=== PATIENT | female | born 1935 | race Caucasian/White ===

== ENCOUNTER 2016-09-09 18:15 | Inpatient (IN) | payer BC, MEDICARE ==
[~2016-09-09] VITALS: Ht 157.5 cm; Wt 72.1 kg
[2016-09-09] MEDS ORDERED: CELEXA20 MG ORAL (18:28)
[2016-09-09] MEDS ORDERED: VITAMIN D-40400 UNIT ORAL (18:28)
[2016-09-09] MEDS ORDERED: COMBIVENT RESPIM4 GM IH (18:28)
[2016-09-09] MEDS ORDERED: SEROQUEL25 MG ORAL (18:28)
[2016-09-09] MEDS ORDERED: MULTIVITAMINS1 EAC2 ORAL (18:28)
[2016-09-09] MEDS ORDERED: ARICEPT10 MG ORAL (18:28)
[2016-09-09] MEDS ORDERED: OMEPRAZOLE20 M2 ORAL (18:28)
[2016-09-09] MEDS ORDERED: MIRALAX17 G2 ORAL (18:28)
[2016-09-09] MEDS ORDERED: SYNTHROID50 MCG ORAL (18:28)
[2016-09-09] MEDS ORDERED: REFRESH TEARS15 ML OP (18:28)
[2016-09-09] MEDS ORDERED: FUROSEMIDE20 M1 ORAL (18:28)
[2016-09-09] MEDS ORDERED: CRANBERRY400 MG PO (18:28)
[2016-09-09] MEDS ORDERED: ADVAIR 250-501 EACH INH (18:28)
[2016-09-09] MEDS ORDERED: DOCUSATE SODIU100 MG ORAL (18:28)
[2016-09-09] MEDS ORDERED: Piperacillin/Tazobactam 4.5 GM in NS 110 ML IV ONE (18:30)
[2016-09-09] MEDS ORDERED: Azithromycin 500 MG in NS 275 ML IV ONE (18:30)
[2016-09-09] MEDS ORDERED: Vancomycin 1 GM in NS 275 ML IV ONE (18:30)
[2016-09-09] MEDS ORDERED: Azithromycin Inj IV ONE (18:55)
--- NOTE | 2016-09-09 19:08 | Emergency Room Report ---
History of Present Illness General Chief Complaint: Dyspnea/Respdistress Source: EMS Present Illness HPI Patient presents with respiratory distress. Apparently she had episodes of vomiting the last few days. She comes in with wheezes according to the paramedics also there were rhonchi. The patient has dementia and is in assisted living. She's has a DO NOT RESUSCITATE order and wants comfort measures only. Paramedics treated with albuterol the field and the patient is somewhat better. Patient is unable to give a coherent history at this time. Allergies: Coded Allergies: NO KNOWN ALLERGIES (Unverified Allergy, Unknown, 09/09/16) Patient History Past Medical History: see triage record Social History Narrative assisted living Reviewed Nursing Documentation: PMH: Agreed, PSxH: Agreed Nursing Documentation-PMH Hx Cardiac Problems: No Hx Hypertension: No Hx Pacemaker: No Hx Asthma: Yes Hx COPD: Yes Hx Diabetes: No Hx Cancer: No Hx Gastrointestinal Problems: No Hx Dialysis: No Hx Neurological Problems: Yes - hypothyroid, djd Hx Cerebrovascular Accident: No Hx Seizures: No Review of Systems All Other Systems: limited Physical Exam Vital Signs Date Time Temp Pulse Resp B/P Pulse Ox O2 Delivery O2 Flow Rate FiO2 09/09/16 18:13 98.2 86 20 110/78 98 Non-Rebreather 10.0 Sp02 EP Interpretation: reviewed, normal General Appearance: well appearing, no apparent distress, alert Head: normocephalic Eyes: bilateral eye normal inspection ENT: moist mucus membranes Neck: supple Respiratory: no respiratory distress, crackles, rales Cardiovascular #1: regular rate, rhythm Cardiovascular #2: 2+ radial (R) Gastrointestinal: soft, no mass Musculoskeletal: back normal, gait/station normal, normal range of motion Neurologic: alert, DTRs symmetric, motor weakness - LE but moves all 4, oriented - X1 Psychiatric: mood/affect normal Skin: normal inspection, warm/dry Medical Decision Making Diagnostic Impression: Primary Impression: Pneumonia Qualified Codes: J18.1 - Lobar pneumonia, unspecified organism Additional Impressions: UTI (urinary tract infection) Qualified Codes: N30.00 - Acute cystitis without hematuria Dementia Qualified Codes: F03.90 - Unspecified dementia without behavioral disturbance Suspected aspiration ER Course Patient presents with respiratory difficulty after having episodes of vomiting. Differential includes bronchospasm, aspiration, pneumonia, gastroenteritis, acute myocardial infarction amongst others. The patient needs evaluation with EKG, blood cultures, lactate, and EKG and chest x-ray after the patient will have antibiotics begun. Because of the rales an x-ray will be obtained judicious fluids will be given to the patient. CXR with RLL infiltrate. Lactic acid slightly elevated. Pyuria suggests concomitant UTI. Tylenol given for temp. Improved with treatment, NAD. Admit med Dr. Hickman. Laboratory Tests Test 09/09/16 18:50 09/09/16 19:20 09/09/16 19:45 White Blood Count 10.5 K/UL (4.8-10.8) Red Blood Count 4.05 M/UL (4.20-5.40) L Hemoglobin 14.3 G/DL (12.0-16.0) Hematocrit 40.8 % (37.0-47.0) Mean Corpuscular Volume 101 FL (80-99) H Mean Corpuscular Hemoglobin 35.3 PG (27.0-31.0) H Mean Corpuscular Hemoglobin Concent 35.1 G/DL (32.0-36.0) Red Cell Distribution Width 12.0 % (11.6-14.8) Platelet Count 160 K/UL (150-450) Mean Platelet Volume 6.8 FL (6.5-10.1) Neutrophils (%) (Auto) 82.8 % (45.0-75.0) H Lymphocytes (%) (Auto) 10.9 % (20.0-45.0) L Monocytes (%) (Auto) 5.6 % (1.0-10.0) Eosinophils (%) (Auto) 0.0 % (0.0-3.0) Basophils (%) (Auto) 0.6 % (0.0-2.0) Sodium Level 141 mEQ/L (135-145) Potassium Level 3.6 mEQ/L (3.4-4.9) Chloride Level 97 mEQ/L (98-107) L Carbon Dioxide Level 26 mEQ/L (20-30) Anion Gap 18 (5-15) H Blood Urea Nitrogen 18 mg/dL (7-23) Creatinine 0.8 mg/dL (0.5-0.9) Estimate Glomerular Filtration Rate mL/min (>60) Glucose Level 158 mg/dL (74-106) H Lactic Acid Level 2.70 mmol/L (0.66-2.22) H Calcium Level 9.6 mg/dL (8.6-10.2) Total Bilirubin 0.4 mg/dL (0.0-1.2) Aspartate Amino Transferase (AST) 23 U/L (5-40) Alanine Aminotransferase (ALT) 14 U/L (3-33) Alkaline Phosphatase 79 U/L (35-104) Total Creatine Kinase 166 U/L (26-140) H Troponin I < 0.30 ng/mL (<=0.30) Pro-B-Type Natriuretic Peptide 451 pg/mL (0-450) H Total Protein 7.2 g/dL (6.6-8.7) Albumin 4.0 g/dL (3.5-5.2) Globulin 3.2 g/dL Albumin/Globulin Ratio 1.2 (1.0-2.7) Prothrombin Time 9.9 SEC (9.30-11.50) Prothrombin Time INR 1.0 (0.9-1.1) PTT 22 SEC (23-33) L Urine Color Yellow Urine Appearance Clear Urine pH 5 (4.5-8.0) Urine Specific [place] 1.025 (1.005-1.035) Urine Protein 2+ (NEGATIVE) H Urine Glucose (UA) Negative (NEGATIVE) Urine Ketones 3+ (NEGATIVE) H Urine Occult Blood 1+ (NEGATIVE) H Urine Nitrite Negative (NEGATIVE) Urine Bilirubin Negative (NEGATIVE) Urine Urobilinogen 1 MG/DL (0.0-1.0) H Urine Leukocyte Esterase 1+ (NEGATIVE) H Urine RBC 5-10 /HPF (0 - 2) H Urine WBC 20-30 /HPF (0 - 2) H Urine Squamous Epithelial Cells Few /LPF (NONE/OCC) Urine Amorphous Sediment Few /LPF (NONE) H Urine Bacteria Many /HPF (NONE) H EKG Diagnostic Results Rate: normal Rhythm: NSR ST Segments: no acute changes Rhythm Strip Diag. Results EP Interpretation: yes Rhythm: NSR, no PVC's, no ectopy Chest X-Ray Diagnostic Results EP Interpretation: Yes Findings: no effusion, no pneumothorax, other - RLL infiltrate Number of Views: 1 Last Vital Signs Date Time Temp Pulse Resp B/P Pulse Ox O2 Delivery O2 Flow Rate FiO2 09/09/16 20:02 100.9 87 18 118/97 96 Nasal Cannula 4.0 09/09/16 19:13 93 Status: improved Disposition: ADMITTED INPATIENT Condition: Serious Ron Metzger M.D. September 09, 2016 19:08
[2016-09-09 19:13] VITALS: BP 115/78
[2016-09-09 19:21] LABS: BASOPHILS % (AUTO) 0.6 % (0.0-2.0); LYMPHOCYTES % (AUTO) 10.9 % (20.0-45.0); MEAN CORPUSCULAR HEMOGLOBIN 35.3 PG (27.0-31.0); MEAN CORPUSCULAR HGB CONC 35.1 G/DL (32.0-36.0); MEAN CORPUSCULAR VOLUME 101 FL (80-99); MEAN PLATELET VOLUME 6.8 FL (6.5-10.1); MONOCYTES % (AUTO) 5.6 % (1.0-10.0); NEUTROPHILS % (AUTO) 82.8 % (45.0-75.0); PLATELET COUNT 160 K/UL (150-450); RED BLOOD COUNT 4.05 M/UL (4.20-5.40); WHITE BLOOD COUNT 10.5 K/UL (4.8-10.8)
[2016-09-09 19:40] LABS: TROPONIN I < 0.30 ng/mL (<=0.30)
[2016-09-09 19:40] LABS: PROTHROMBIN TIME 9.9 SEC (9.30-11.50)
[2016-09-09 19:41] LABS: REFLEX LACTIC ACID YES OR NO YES
[2016-09-09 19:46] LABS: ALANINE AMINOTRANSFERASE 14 U/L (3-33); ALBUMIN/GLOBULIN RATIO 1.2 (1.0-2.7); ANION GAP 18 (5-15); ASPARTATE AMINO TRANSFERASE 23 U/L (5-40); CALCIUM 9.6 mg/dL (8.6-10.2); CARBON DIOXIDE 26 mEQ/L (20-30); CHLORIDE 97 mEQ/L (98-107); CREATININE 0.8 mg/dL (0.5-0.9); HEMOLYSIS 13; POTASSIUM 3.6 mEQ/L (3.4-4.9); SODIUM 141 mEQ/L (135-145); TOTAL PROTEIN 7.2 g/dL (6.6-8.7)
[2016-09-09] MEDS ORDERED: Tubing IV Cassette IV ONE ×2 (19:51→21:52)
[2016-09-09] MEDS ORDERED: Zosyn 4.5gm inj ONE (19:51)
[2016-09-09] MEDS ORDERED: NS 110 ML ONE (19:51)
[2016-09-09 20:02] VITALS: BP 118/97
[2016-09-09 20:16] LABS: APPEARANCE,URINE CLEAR; KETONES,URINE 3+ (NEGATIVE); LEUKOCYTE ESTERASE ,URINE 1+ (NEGATIVE); NITRITE,URINE NEGATIVE (NEGATIVE); PH,URINE 5 (4.5-8.0); PROTEIN,URINE 2+ (NEGATIVE); UROBILINOGEN,URINE 1 MG/DL (0.0-1.0)
[2016-09-09 20:39] LABS: BACTERIA,URINE MANY /HPF; SQUAMOUS EPITHELIAL CELL,UR FEW /LPF (NONE/OCC); WBC,URINE 20-30 /HPF (0 - 2)
[2016-09-09 20:40] LABS: AMORPHOUS SEDIMENT,UR FEW /LPF
[2016-09-09] MEDS ORDERED: Acetaminophen 650 MG SUPP RECTAL PRN ×2 (20:45→22:15)
[2016-09-09] MEDS ORDERED: Vancomycin 1gm inj IVPB ONE (21:52)
[2016-09-09] MEDS ORDERED: NS 275 ML ONE (21:52)
[2016-09-09] MEDS ORDERED: Miralax 17gm pkt ORAL PRN (22:15)
[2016-09-09 22:21] VITALS: BP 120/89
[2016-09-09] MEDS: Advair 250/50 Inhaler - 14 dose INH SCH (23:00)
[2016-09-09] MEDS: D5 1/2NS w/KCl 20mEq 1,000 ML IV SCH (23:15)
[2016-09-09] MEDS: DuoNeb 0.5-3(2.5)mg/3ml neb HHN SCH (23:50)
[2016-09-10] MEDS: DuoNeb 0.5-3(2.5)mg/3ml neb HHN SCH ×6 (03:26→23:00)
[2016-09-10 05:44] VITALS: BP 126/47
[2016-09-10 07:12] LABS: ANION GAP 17 (5-15); CARBON DIOXIDE 26 mEQ/L (20-30); CHLORIDE 99 mEQ/L (98-107); CREATININE 0.8 mg/dL (0.5-0.9); HEMOLYSIS 2; POTASSIUM 3.9 mEQ/L (3.4-4.9); SODIUM 142 mEQ/L (135-145)
[2016-09-10 07:15] LABS: BASOPHILS % (AUTO) 0.5 % (0.0-2.0); LYMPHOCYTES % (AUTO) 9.6 % (20.0-45.0); MEAN CORPUSCULAR HEMOGLOBIN 32.5 PG (27.0-31.0); MEAN CORPUSCULAR HGB CONC 32.7 G/DL (32.0-36.0); MEAN CORPUSCULAR VOLUME 100 FL (80-99); MONOCYTES % (AUTO) 5.6 % (1.0-10.0); NEUTROPHILS % (AUTO) 84.3 % (45.0-75.0); PLATELET COUNT 174 K/UL (150-450); RED BLOOD COUNT 3.61 M/UL (4.20-5.40); RED CELL DISTRIBUTION WIDTH 12.1 % (11.6-14.8); WHITE BLOOD COUNT 10.8 K/UL (4.8-10.8)
[2016-09-10 08:00] VITALS: BP 161/67
[2016-09-10] MEDS ORDERED: Donepezil 10mg tab ORAL SCH (09:00)
[2016-09-10] MEDS ORDERED: Pantoprazole Inj IVP SCH (09:00)
[2016-09-10] MEDS ORDERED: Flovent 110mcg Inhaler - 12gm INH SCH (09:00)
[2016-09-10] MEDS ORDERED: Piperacillin/Tazobactam 3.375 GM in D5W 110 ML IVPB SCH (09:00)
[2016-09-10] MEDS ORDERED: Citalopram 20mg Tab ORAL SCH (09:00)
[2016-09-10] MEDS: Advair 250/50 Inhaler - 14 dose INH SCH ×2 (09:09→21:00)
[2016-09-10 11:48] LABS: APPEARANCE,URINE TURBID; KETONES,URINE 1+ (NEGATIVE); LEUKOCYTE ESTERASE ,URINE 3+ (NEGATIVE); NITRITE,URINE POSITIVE (NEGATIVE); PH,URINE 5 (4.5-8.0); PROTEIN,URINE 3+ (NEGATIVE); UROBILINOGEN,URINE NORMAL MG/DL (0.0-1.0)
[2016-09-10 12:11] VITALS: BP 101/55
[2016-09-10 12:12] VITALS: BP 101/55
[2016-09-10 12:21] LABS: BACTERIA,URINE FEW /HPF; SQUAMOUS EPITHELIAL CELL,UR FEW /LPF (NONE/OCC); WBC,URINE 15-20 /HPF (0 - 2)
[2016-09-10] MEDS: D5 1/2NS w/KCl 20mEq 1,000 ML IV SCH ×2 (12:35→16:42)
--- NOTE | 2016-09-10 13:17 | Diagnostic Imaging Report ---
Indication: COUGH Technique: One view of the chest Comparison: 09/26/2014 Findings: Lungs and pleural spaces are clear. The heart size is normal. Aorta is tortuous ectatic and calcified. Upper mediastinum is unremarkable. No significant change Impression: No acute process
[2016-09-10 14:32] LABS: REFLEX LACTIC ACID YES OR NO YES
[2016-09-10 16:00] VITALS: BP 100/60
--- NOTE | 2016-09-10 16:28 | Geriatric Progress Note ---
Subjective Interval Events Patient with episode of vomiting x 2 at [facility], associated with hypotension sbp in 80s. 911 evaluated patient, brought to ED. In ED, hypoxia, respiratory compromise, concern for pneumonitis. Given azithromycin, vanco, Zosyn for possible aspiration. Admitted for futher eval and tx. 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 Agitation, paranoia, behavioral changes associated with dementia. Major depressive disorder. COPD with hx bronchospasm. Hx of insulin usage, d/c'ed. Hypothyroidism. Hyperlipidemia. Hx of peripheral edema. DJD. Hx of a fib. S/p R arm fx. S/p cataract surgery. Gait disorder. Hx of R hip/gluteal cellulitis with deep necrosis, s/p debridement, healed. Apparent dysphagia, with coughing, resolving with puree diet. Hypokalemia on diuretic. Meds: Synthroid 50 mcg Seroquel 12.5 bid Docusate 200 bid Omeprazole 20 daily Celexa 10 daily Aricept 10 qhs Lasix 20 daily Advair Diskus 250/50 one puff bid. Combivent Respimat 20/100 2 puffs tid prn wheezing KCl 20 meq daily Miralax 1 scoop daily MVI daily Vit D 2000IU daily Cranberry 400 daily Refresh tears OU qid prn irritation Patient currently alert, giggles, no coherent verbal response. No apparent distress, seems to deny discomfort. Had b.m. Ate puree well per staff. PE with no wheezing, some coarse b.s., no rales. Abdomen benign. Extremities without edema, calf tenderness. CXR: NAD. U/a with significant pyuria. Lactate 2.70. Suspect UTI with incipient sepsis. Doubt pneumonia. Continue brought spectrum coverage x 24 hrs. Await C&S results. Taper IVF. Mobilize as tolerated. Discussed with Malena Preciado. Discussed with Quin Lea. Confirmed DNR, active tx without heroics. Dictated #[id number] Geriatric Geriatric Last 24 Hour Vital Signs Date Time Temp Pulse Resp B/P Pulse Ox O2 Delivery O2 Flow Rate FiO2 09/10/16 12:12 97.4 97 18 101/55 97 Nasal Cannula 2.0 09/10/16 12:11 97.4 97 18 101/55 97 Room Air 09/10/16 11:00 82 18 98 Nasal Cannula 2.0 28 09/10/16 11:00 85 18 98 Nasal Cannula 2.0 28 09/10/16 09:00 Nasal Cannula 2.0 28 09/10/16 09:00 79 16 98 Nasal Cannula 2.0 28 09/10/16 08:00 97.1 81 19 161/67 97 Room Air 09/10/16 08:00 97.5 81 19 161/67 97 Room Air 09/10/16 06:50 81 18 98 Nasal Cannula 2.0 28 09/10/16 06:50 82 18 98 Nasal Cannula 2.0 28 09/10/16 06:50 98 Nasal Cannula 2.0 28 09/10/16 06:50 Nasal Cannula 2.0 28 09/10/16 05:44 98.1 74 21 126/47 96 Room Air 09/10/16 03:35 83 16 98 Nasal Cannula 2.0 28 09/10/16 03:27 81 16 97 Nasal Cannula 2.0 28 09/09/16 23:50 Nasal Cannula 2.0 28 09/09/16 23:50 Nasal Cannula 2.0 28 09/09/16 23:00 96 Nasal Cannula 2.0 28 09/09/16 23:00 80 16 96 Nasal Cannula 2.0 28 09/09/16 23:00 Nasal Cannula 2.0 28 09/09/16 23:00 Nasal Cannula 2.0 28 09/09/16 22:58 100.6 09/09/16 22:34 101.5 75 22 120/89 99 Nasal Cannula 4.0 93 09/09/16 22:21 101.5 75 22 120/89 99 Nasal Cannula 4.0 09/09/16 20:02 100.9 87 18 118/97 96 Nasal Cannula 4.0 09/09/16 19:13 98.2 82 20 115/78 98 Non-Rebreather 2.0 09/09/16 19:13 86 20 Nasal Cannula 2.0 93 09/09/16 18:13 98.2 86 20 110/78 98 Non-Rebreather 10.0 Intake and Output 09/09/16 09/10/16 19:00 07:00 Intake Total 985 ml Output Total 220 ml Balance 765 ml IV Total 985 ml Output Urine Total 120 ml Other 100 ml Laboratory Tests Test 09/09/16 18:50 09/09/16 19:20 09/09/16 19:45 09/10/16 05:20 White Blood Count 10.5 K/UL (4.8-10.8) 10.8 K/UL (4.8-10.8) Red Blood Count 4.05 M/UL (4.20-5.40) L 3.61 M/UL (4.20-5.40) L Hemoglobin 14.3 G/DL (12.0-16.0) 11.7 G/DL (12.0-16.0) L Hematocrit 40.8 % (37.0-47.0) 35.9 % (37.0-47.0) L Mean Corpuscular Volume 101 FL (80-99) H 100 FL (80-99) H Mean Corpuscular Hemoglobin 35.3 PG (27.0-31.0) H 32.5 PG (27.0-31.0) H Mean Corpuscular Hemoglobin Concent 35.1 G/DL (32.0-36.0) 32.7 G/DL (32.0-36.0) Red Cell Distribution Width 12.0 % (11.6-14.8) 12.1 % (11.6-14.8) Platelet Count 160 K/UL (150-450) 174 K/UL (150-450) Mean Platelet Volume 6.8 FL (6.5-10.1) 7.0 FL (6.5-10.1) Neutrophils (%) (Auto) 82.8 % (45.0-75.0) H 84.3 % (45.0-75.0) H Lymphocytes (%) (Auto) 10.9 % (20.0-45.0) L 9.6 % (20.0-45.0) L Monocytes (%) (Auto) 5.6 % (1.0-10.0) 5.6 % (1.0-10.0) Eosinophils (%) (Auto) 0.0 % (0.0-3.0) 0.0 % (0.0-3.0) Basophils (%) (Auto) 0.6 % (0.0-2.0) 0.5 % (0.0-2.0) Sodium Level 141 mEQ/L (135-145) 142 mEQ/L (135-145) Potassium Level 3.6 mEQ/L (3.4-4.9) 3.9 mEQ/L (3.4-4.9) Chloride Level 97 mEQ/L (98-107) L 99 mEQ/L (98-107) Carbon Dioxide Level 26 mEQ/L (20-30) 26 mEQ/L (20-30) Anion Gap 18 (5-15) H 17 (5-15) H Blood Urea Nitrogen 18 mg/dL (7-23) 22 mg/dL (7-23) Creatinine 0.8 mg/dL (0.5-0.9) 0.8 mg/dL (0.5-0.9) Estimat Glomerular Filtration Rate mL/min (>60) mL/min (>60) Glucose Level 158 mg/dL (74-106) H 137 mg/dL (74-106) H Lactic Acid Level 2.70 mmol/L (0.66-2.22) H Calcium Level 9.6 mg/dL (8.6-10.2) 9.0 mg/dL (8.6-10.2) Total Bilirubin 0.4 mg/dL (0.0-1.2) Aspartate Amino Transf (AST/SGOT) 23 U/L (5-40) Alanine Aminotransferase (ALT/SGPT) 14 U/L (3-33) Alkaline Phosphatase 79 U/L (35-104) Total Creatine Kinase 166 U/L (26-140) H Troponin I < 0.30 ng/mL (<=0.30) Pro-B-Type Natriuretic Peptide 451 pg/mL (0-450) H Total Protein 7.2 g/dL (6.6-8.7) Albumin 4.0 g/dL (3.5-5.2) Globulin 3.2 g/dL Albumin/Globulin Ratio 1.2 (1.0-2.7) Prothrombin Time 9.9 SEC (9.30-11.50) Prothromb Time International Ratio 1.0 (0.9-1.1) Activated Partial Thromboplast Time 22 SEC (23-33) L Urine Color Yellow Urine Appearance Clear Urine pH 5 (4.5-8.0) Urine Specific [place] 1.025 (1.005-1.035) Urine Protein 2+ (NEGATIVE) H Urine Glucose (UA) Negative (NEGATIVE) Urine Ketones 3+ (NEGATIVE) H Urine Occult Blood 1+ (NEGATIVE) H Urine Nitrite Negative (NEGATIVE) Urine Bilirubin Negative (NEGATIVE) Urine Urobilinogen 1 MG/DL (0.0-1.0) H Urine Leukocyte Esterase 1+ (NEGATIVE) H Urine RBC 5-10 /HPF (0 - 2) H Urine WBC 20-30 /HPF (0 - 2) H Urine Squamous Epithelial Cells Few /LPF (NONE/OCC) Urine Amorphous Sediment Few /LPF (NONE) H Urine Bacteria Many /HPF (NONE) H Test 09/10/16 09:00 09/10/16 14:00 Urine Color Yellow Urine Appearance Turbid Urine pH 5 (4.5-8.0) Urine Specific [place] 1.015 (1.005-1.035) Urine Protein 3+ (NEGATIVE) H Urine Glucose (UA) Negative (NEGATIVE) Urine Ketones 1+ (NEGATIVE) H Urine Occult Blood 5+ (NEGATIVE) H Urine Nitrite Positive (NEGATIVE) H Urine Bilirubin Negative (NEGATIVE) Urine Urobilinogen Normal MG/DL (0.0-1.0) Urine Leukocyte Esterase 3+ (NEGATIVE) H Urine RBC 10-15 /HPF (0 - 2) H Urine WBC 15-20 /HPF (0 - 2) H Urine Squamous Epithelial Cells Few /LPF (NONE/OCC) Urine Bacteria Few /HPF (NONE) Lactic Acid Level 2.40 mmol/L (0.66-2.22) H Current Medications Medications (Trade) Dose Ordered Sig/Hitesh Route PRN Reason Start Time Stop Time Status Last Admin Dose Admin Acetaminophen 650 mg 650 mg Q4H PRN RECTAL Mild Pain (Pain Scale 1-3) 09/09/16 22:15 10/09/16 22:14 09/09/16 22:28 Albuterol/ Ipratropium (DuoNeb 0.5-3(2.5)mg/3ml) 3 ml Q4HRT HHN 09/09/16 23:00 09/14/16 22:59 09/10/16 11:03 Citalopram Hydrobromide (celeXA) 20 mg DAILY ORAL 09/10/16 09:00 10/10/16 08:59 09/10/16 09:08 Dextrose/ Electrolytes 1,000 ml @ 75 mls/hr [id number] IV 09/09/16 23:15 10/09/16 23:14 09/09/16 23:15 Donepezil HCl (Aricept) 10 mg DAILY ORAL 09/10/16 09:00 10/10/16 08:59 09/10/16 09:08 Fluticasone Propionate (Flovent 110 mcg) 1 puff TWICE A DAY INH 09/10/16 09:00 10/10/16 08:59 Levothyroxine Sodium (Synthroid) 50 mcg DAILY IV 09/10/16 09:00 10/10/16 08:59 09/10/16 09:22 Pantoprazole (Protonix) 40 mg DAILY IVP 09/10/16 09:00 10/10/16 08:59 09/10/16 09:08 Piperacillin Sod/ Tazobactam Sod/ Dextrose (Zosyn/D5W) 110 ml @ 27.5 mls/hr EVERY 12 HOURS IVPB 09/10/16 09:00 09/15/16 08:59 09/10/16 09:07 Polyethylene Glycol (Miralax) 17 gm DAILY PRN ORAL Constipation 09/09/16 22:15 10/09/16 22:14 Quetiapine Fumarate 25 mg 25 mg Q12HR ORAL 09/10/16 09:00 10/10/16 08:59 09/10/16 09:08 Salmeterol Xinafoate/ Fluticasone (Advair 250/50 Diskus) 1 puffs Q12HR INH 09/09/16 22:30 10/09/16 22:29 09/10/16 09:09 Vancomycin HCl (Vanco rx to dose) 1 ea DAILY PRN MISC Per rx protocol 09/09/16 22:15 10/09/16 22:14 Vancomycin HCl/ Dextrose (Vancomycin/D5W) 275 ml @ 183.708 mls/hr Q24H IVPB 09/10/16 22:00 09/15/16 21:59 Height (Feet): 5 Height (Inches): 2.00 Weight (Pounds): 159 SHANNON RO September 10, 2016 16:28
[2016-09-10] MEDS: Piperacillin/Tazobactam 3.375 GM in D5W 110 ML IVPB SCH (16:53)
--- NOTE | 2016-09-10 18:57 | Cardiology Report ---
APPROVED REPORT EKG Measurement Heart [id number] ID [id number] Normal sinus rhythm Abnormal ECG
[2016-09-10 20:00] VITALS: BP 115/56
[2016-09-10] MEDS: Donepezil 10mg tab ORAL SCH (20:22)
[2016-09-10] MEDS: Heparin 5000 units/ml inj SUBQ SCH (20:24)
[2016-09-10] MEDS ORDERED: Vancomycin 1gm/D5W 275ml IVPB SCH ×2 (22:00)
[2016-09-11] VITALS: BP 118/51
[2016-09-11] MEDS: D5 1/2NS w/KCl 20mEq 1,000 ML IV SCH (00:01)
[2016-09-11] MEDS: Piperacillin/Tazobactam 3.375 GM in D5W 110 ML IVPB SCH ×2 (00:03→09:10)
[2016-09-11] MEDS: DuoNeb 0.5-3(2.5)mg/3ml neb HHN SCH ×6 (03:00→23:05)
--- NOTE | 2016-09-11 03:16 | History and Physical Report ---
DATE OF ADMISSION: 09/09/2016 IDENTIFICATION DATA: The patient is an 80-year-old woman with multiple chronic medical illnesses, who is a resident of an [facility]. She will occasionally have an episode of vomiting usually followed by a large bowel movement with return to normal gastrointestinal function. On the present occasion in the morning, the patient had such an episode with vomiting and a large bowel movement. However instead of returning to her baseline status, which is the usual course, the patient became more lethargic and had an additional episode of vomiting. She was then found to be hypotensive with a systolic blood pressure in the 80s. The paramedics were called and the patient was brought to the emergency department at [facility]. In the emergency department, the patient was initially noted to be relatively hypotensive, but with fluid hydration, her blood pressure improved. The initial impression in the emergency room is that the patient had low oxygen saturations and evidence of some potential respiratory compromise and there was concern that there might be a pneumonitis possibly associated with aspiration from the vomiting. The patient was therefore covered with broad-spectrum antibiotics including azithromycin, vancomycin, and Zosyn. She was then admitted for further evaluation and treatment. PAST MEDICAL HISTORY: The patient's past medical history includes advanced dementia noted on initial evaluation in September 2012 with gradual progression since that time. The dementing illness was associated with behavioral changes, which included agitation, paranoia, and some striking out. The patient was seen by Dr. Nydia Rm, psychiatrically, and was diagnosed with a major depressive disorder along with dementia with behavioral disturbance. The patient was titrated on low doses of antidepressant therapy and atypical antipsychotic therapy and improved dramatically with relatively cheerful affect on recent visits. Her dementia is sufficiently advanced that her responses are essentially incoherent. She will occasionally answer yes or no, but the reliability of these responses is unclear. However, she is cheerful and smiling most of the time and eats well according to the facility staff and other than occasional bowel issues and occasional urinary tract infections, has had relatively stable function. There are also occasional episodes of bronchospasm associated with her known underlying chronic obstructive lung disease and the patient receives bronchodilators in this regard. Her other medical diagnoses includes history of insulin usage apparently for diabetes, which has been discontinued with no evidence of uncontrolled diabetes, hypothyroidism, hyperlipidemia, a history of peripheral edema treated with diuretics, degenerative joint disease, history of atrial fibrillation, prior right arm fracture, status post cataract surgery, a gait disorder with immobility limited to transfers, distant history of right hip and gluteal cellulitis with deep necrosis status post debridement which has healed, apparent dysphagia with episode postprandial coughing which has cleared with puree diet, and a history of hypokalemia, on diuretic requiring potassium supplementation. MEDICATIONS: Include Synthroid 50 mcg daily, Seroquel 12.5 mg b.i.d., docusate 200 mg b.i.d., omeprazole 20 mg daily, Celexa 10 mg daily, Aricept 10 mg at bedtime, Lasix 20 mg daily, Advair Diskus 250/50 one puff twice daily, Combivent Respimat 20/100 two puffs t.i.d. p.r.n. wheezing, KCl 20 mEq daily, MiraLAX one scoop daily, multivitamins daily, vitamin D 2000 units daily, cranberry 400 mg daily, and Refresh Tears OU q.i.d. p.r.n. for eye irritation. ALLERGIES: No known allergies. SOCIAL HISTORY: The patient apparently was born [place]. 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 Single with no children. Placed under conservatorship because of psychiatric issues to complete probate and residing at [facility] since August of 2012. No other specifics are known about the patient. FAMILY HISTORY: There apparently is a smoking history, but the details of that are uncertain. REVIEW OF SYSTEMS: The patient is unable to respond in any meaningful fashion although when asked about discomfort, she seems to indicate that she is not experiencing any at the present time. PHYSICAL EXAMINATION: VITAL SIGNS: The patient's blood pressure is 101/55, heart rate 97, respiratory rate 18, temperature 97.4 degrees, and oxygen saturation 97% on room air. GENERAL: The patient is a well-developed woman, not in apparent distress. HEAD AND NECK: Reveals normocephalic and atraumatic skull. Mucosa appears slightly dry. The neck is without masses and appears to have normal range of motion. CHEST: Reveals no wheezing or rales. Somewhat coarse breath sounds, but fair air movement. CARDIAC: Reveals a regular rhythm. ABDOMEN: Reveals normal bowel sounds. Soft and nontender without masses or organomegaly appreciated. No suprapubic tenderness or dullness is appreciated at the present time. EXTREMITIES: Revealed some moderate changes of degenerative joint disease. There is no significant distal edema or calf tenderness at the present time. SKIN: Apparently intact. No evidence of adenopathy is appreciated at the present time. NEUROLOGIC: There is no evidence of new focality although the patient is unable to follow instructions for detailed examination. LABORATORY DATA: The patient's laboratory data includes a white count of 10.5, hematocrit of 40.8, MCV of 101, and platelet count of 160,000. There is a very mild left shift. Sodium 141, potassium 3.6, chloride 97, bicarb 26, BUN 18, creatinine 0.8, and glucose 158. Lactate 2.7. Calcium 9.6. Total bilirubin 0.4. AST is 23, ALT 14, alkaline phosphatase 79, and total CK 166. Troponin less than 0.3. ProBNP 451. Total protein 7.2. Albumin 4.0. PTT is 22. INR 1.0. Urinalysis reveals pH of 5, specific gravity of 1.025, 2+ protein, negative glucose, 3+ ketones, 1+ occult blood, negative nitrites, 1+ leukocyte esterase, 5 to 10 RBCs, 20 to 30 WBCs, and many bacteria. Repeat lactate is 2.4. Chest x-ray is read as showing no evidence of acute disease. IMPRESSION AND PLAN: The patient presents with what appears to be incipient sepsis with a lactate of 2.7 initially associated with a mildly increased CK consistent with a borderline septic change, but no evidence of myocardial ischemia. The apparent source of sepsis appears to be urinary tract. There was initial concern about a pneumonitis, but the chest x-ray examination on further review does not appear to suggest an infiltrate and the patient's current pulmonary examination does not suggest excessive congestion, evidence of consolidation or adventitious breath sounds, or bronchospasm making pneumonitis much less likely. The patient appears to have responded to initial fluid resuscitation as well as antibiotic coverage. Given this overall presentation, the patient will be continued on broad-spectrum antibiotics pending the culture of the urine. After initially being made NPO because of the concern of aspiration and vomitus, she has been restarted on her pureed diet and is reported to have tolerated that extremely well and will be maintained on pureed diet. She will be hydrated further gently and her Lasix has been held for the time being. Her other usual medications will be continued at this time except for the potassium. The patient will be mobilized as tolerated and hopefully when she is stabilized on appropriate antibiotic therapy, can be discharged back to her [facility] facility. The situation was discussed with Malena Preciado, the infrastructure administrator at her [facility], and also with Quin Lea, her health care law specialist for the [facility]. The patient's DNR status was confirmed both by POLST and discussion with Ms. Lea, and the overall plan of treatment was reviewed with both Ms. Preciado and Ms. Lea. Additional interventions will be considered depending on the patient's initial response to therapy. Jamin Cameron M.D. DR: BINTA JOB#: [id number] CC: DILIP
[2016-09-11 07:12] LABS: BASOPHILS % (AUTO) 0.9 % (0.0-2.0); EOSINOPHILS % (AUTO) 0.5 % (0.0-3.0); LYMPHOCYTES % (AUTO) 18.8 % (20.0-45.0); MEAN CORPUSCULAR HEMOGLOBIN 33.2 PG (27.0-31.0); MEAN CORPUSCULAR VOLUME 101 FL (80-99); MEAN PLATELET VOLUME 6.5 FL (6.5-10.1); MONOCYTES % (AUTO) 5.7 % (1.0-10.0); NEUTROPHILS % (AUTO) 74.1 % (45.0-75.0); PLATELET COUNT 163 K/UL (150-450); RED BLOOD COUNT 3.68 M/UL (4.20-5.40); RED CELL DISTRIBUTION WIDTH 12.5 % (11.6-14.8)
[2016-09-11 07:29] LABS: ANION GAP 12 (5-15); CALCIUM 9.3 mg/dL (8.6-10.2); CARBON DIOXIDE 29 mEQ/L (20-30); CHLORIDE 103 mEQ/L (98-107); CREATININE 0.8 mg/dL (0.5-0.9); HEMOLYSIS 18; POTASSIUM 3.6 mEQ/L (3.4-4.9); SODIUM 144 mEQ/L (135-145)
[2016-09-11 08:11] VITALS: BP 114/54
[2016-09-11] MEDS: Miralax 17gm pkt ORAL SCH (08:34)
[2016-09-11] MEDS: Citalopram Hydrobromide 10 MG TAB ORAL SCH (08:35)
[2016-09-11] MEDS: Heparin 5000 units/ml inj SUBQ SCH ×2 (08:36→20:46)
[2016-09-11] MEDS: Advair 250/50 Inhaler - 14 dose INH SCH ×2 (09:28→21:00)
[2016-09-11 12:33] VITALS: BP 106/76
--- NOTE | 2016-09-11 15:55 | Geriatric Progress Note ---
Assessment/Plan Problems: (1) UTI (urinary tract infection) (2) Dementia Assessment/Plan UTI responding to tx. Will narrow apectrum, consider d/c in next 48 hours. No evidence of respiratory issue. Euvolemic. Keep off diuretic for now. D/c IVF. Recheck labs. Discussed with: hospital staff Subjective Interval Events Patient reportedly taking puree well, no new c/o. Lactate now normal. Urine growing E coli sensitive to cefazolin. No respiratory sxs apparent. Constitutional: Reports: chills, fever, pain Subjective Incoherent responses as to details due to patient cognitive deficits. Geriatric Geriatric Last 24 Hour Vital Signs Date Time Temp Pulse Resp B/P Pulse Ox O2 Delivery O2 Flow Rate FiO2 09/11/16 14:46 74 18 93 Room Air 09/11/16 14:46 74 18 93 Room Air 09/11/16 12:33 97.5 85 19 106/76 95 Room Air 09/11/16 11:21 78 18 96 Room Air 09/11/16 11:11 78 18 93 Room Air 09/11/16 11:11 21 09/11/16 08:11 97.0 78 18 114/54 94 Room Air 09/11/16 07:47 76 18 92 Room Air 09/11/16 07:37 21 09/11/16 07:37 Room Air 21 09/11/16 07:37 92 Room Air 09/11/16 07:37 76 18 92 Room Air 09/11/16 03:09 Nasal Cannula 2.0 09/11/16 03:09 Nasal Cannula 2.0 09/11/16 00:00 97.9 86 20 118/51 94 Room Air 09/10/16 23:28 Nasal Cannula 2.0 09/10/16 23:28 Nasal Cannula 2.0 09/10/16 20:00 98.1 83 18 115/56 93 Nasal Cannula 09/10/16 19:59 90 18 98 Nasal Cannula 2.0 09/10/16 19:54 88 16 Nasal Cannula 2.0 09/10/16 19:00 Nasal Cannula 2.0 09/10/16 19:00 98 Nasal Cannula 2.0 09/10/16 16:15 81 18 97 Nasal Cannula 2.0 09/10/16 16:15 85 18 98 Nasal Cannula 2.0 28 09/10/16 16:00 98.1 83 19 100/60 98 Room Air Intake and Output 09/10/16 09/11/16 19:00 07:00 Intake Total 1127.5 ml 150 ml Output Total 275 ml 225 ml Balance 852.5 ml -75 ml Intake Oral 840 ml IV Total 287.5 ml 150 ml Output Urine Total 275 ml 225 ml # Bowel Movements 1 Laboratory Tests Test 09/10/16 18:40 09/11/16 05:05 Lactic Acid Level 1.80 mmol/L (0.66-2.22) 1.60 mmol/L (0.66-2.22) White Blood Count 8.0 K/UL (4.8-10.8) Red Blood Count 3.68 M/UL (4.20-5.40) L Hemoglobin 12.2 G/DL (12.0-16.0) Hematocrit 37.0 % (37.0-47.0) Mean Corpuscular Volume 101 FL (80-99) H Mean Corpuscular Hemoglobin 33.2 PG (27.0-31.0) H Mean Corpuscular Hemoglobin Concent 33.0 G/DL (32.0-36.0) Red Cell Distribution Width 12.5 % (11.6-14.8) Platelet Count 163 K/UL (150-450) Mean Platelet Volume 6.5 FL (6.5-10.1) Neutrophils (%) (Auto) 74.1 % (45.0-75.0) Lymphocytes (%) (Auto) 18.8 % (20.0-45.0) L Monocytes (%) (Auto) 5.7 % (1.0-10.0) Eosinophils (%) (Auto) 0.5 % (0.0-3.0) Basophils (%) (Auto) 0.9 % (0.0-2.0) Sodium Level 144 mEQ/L (135-145) Potassium Level 3.6 mEQ/L (3.4-4.9) Chloride Level 103 mEQ/L (98-107) Carbon Dioxide Level 29 mEQ/L (20-30) Anion Gap 12 (5-15) Blood Urea Nitrogen 22 mg/dL (7-23) Creatinine 0.8 mg/dL (0.5-0.9) Estimat Glomerular Filtration Rate mL/min (>60) Glucose Level 105 mg/dL (74-106) Calcium Level 9.3 mg/dL (8.6-10.2) Current Medications Medications (Trade) Dose Ordered Sig/Hitesh Route PRN Reason Start Time Stop Time Status Last Admin Dose Admin Acetaminophen 650 mg 650 mg Q4H PRN RECTAL Mild Pain (Pain Scale 1-3) 09/09/16 22:15 10/09/16 22:14 09/09/16 22:28 Albuterol/ Ipratropium (DuoNeb 0.5-3(2.5)mg/3ml) 3 ml Q4HRT HHN 09/09/16 23:00 09/14/16 22:59 09/11/16 11:11 Citalopram Hydrobromide (celeXA) 10 mg DAILY ORAL 09/11/16 09:00 10/11/16 08:59 09/11/16 08:35 Dextrose/ Electrolytes (D5 0.45%NS W/ KCl 20mEq) 1,000 ml @ 50 mls/hr Q20H IV 09/10/16 16:30 10/10/16 16:29 09/11/16 00:01 Donepezil HCl (Aricept) 10 mg QHS ORAL 09/10/16 21:00 10/10/16 20:59 09/10/16 20:22 Heparin Sodium (Porcine) (Heparin 5000 units/ml) 5,000 units EVERY 12 HOURS SUBQ 09/10/16 21:00 10/10/16 20:59 09/11/16 08:36 Levothyroxine Sodium (Synthroid) 50 mcg DAILY@0630 ORAL 09/11/16 06:30 10/11/16 06:29 09/11/16 05:50 Pantoprazole (Protonix) 40 mg DAILY ORAL 09/11/16 09:00 10/11/16 08:59 09/11/16 08:35 Piperacillin Sod/ Tazobactam Sod 3.375 gm/Dextrose 110 ml @ 27.5 mls/hr Q8HR@0100,0900,1700 IVPB 09/10/16 17:00 09/17/16 16:59 09/11/16 09:10 Polyethylene Glycol (Miralax) 17 gm DAILY ORAL 09/11/16 09:00 10/11/16 08:59 09/11/16 08:34 Quetiapine Fumarate (SEROquel) 12.5 mg Q12HR ORAL 09/10/16 21:00 10/10/16 20:59 09/11/16 08:35 Salmeterol Xinafoate/ Fluticasone (Advair 250/50 Diskus) 1 puffs Q12HR INH 09/09/16 22:30 10/09/16 22:29 09/10/16 09:09 Vancomycin HCl (Vanco rx to dose) 1 ea DAILY PRN MISC Per rx protocol 09/09/16 22:15 10/09/16 22:14 Vancomycin HCl 1 gm/Dextrose 275 ml @ 183.708 mls/hr Q24H IVPB 09/10/16 22:00 09/15/16 21:59 09/10/16 21:22 Height (Feet): 5 Height (Inches): 2.00 Weight (Pounds): 159 General Appearance: no apparent distress, alert, non-toxic Head: normocephalic, atraumatic Eyes: bilateral anicteric ENT: normal voice Neck: full range of motion, no mass Respiratory: lungs clear Cardiovascular: regular rate, rhythm Gastrointestinal: normal bowel sounds, non tender, soft, no mass, no organomegaly, non-distended Musculoskeletal: no calf tenderness Edema: no edema noted Generalized Neurologic: no new focality SHANNON RO September 11, 2016 15:55
[2016-09-11 15:59] VITALS: BP 136/74
[2016-09-11 16:00] VITALS: BP 123/60
[2016-09-11 20:00] VITALS: BP 127/65
[2016-09-11] MEDS: ceFAZolin sod 1 GM in D5W 55 ML IVPB SCH (20:41)
[2016-09-11] MEDS: Donepezil 10mg tab ORAL SCH (20:47)
[2016-09-12] VITALS: BP 131/62
[2016-09-12] MEDS: DuoNeb 0.5-3(2.5)mg/3ml neb HHN SCH ×4 (03:13→15:16)
[2016-09-12 04:00] VITALS: BP 123/71
[2016-09-12 07:36] LABS: BASOPHILS % (AUTO) 0.8 % (0.0-2.0); LYMPHOCYTES % (AUTO) 21.7 % (20.0-45.0); MEAN CORPUSCULAR HEMOGLOBIN 33.8 PG (27.0-31.0); MEAN CORPUSCULAR HGB CONC 33.6 G/DL (32.0-36.0); MEAN CORPUSCULAR VOLUME 101 FL (80-99); MEAN PLATELET VOLUME 7.3 FL (6.5-10.1); NEUTROPHILS % (AUTO) 70.6 % (45.0-75.0); PLATELET COUNT 172 K/UL (150-450); RED BLOOD COUNT 3.79 M/UL (4.20-5.40); RED CELL DISTRIBUTION WIDTH 12.4 % (11.6-14.8)
[2016-09-12 07:45] LABS: ANION GAP 17 (5-15); CALCIUM 9.5 mg/dL (8.6-10.2); CARBON DIOXIDE 26 mEQ/L (20-30); CHLORIDE 102 mEQ/L (98-107); CREATININE 0.8 mg/dL (0.5-0.9); HEMOLYSIS 25; SODIUM 145 mEQ/L (135-145)
[2016-09-12] MEDS: Miralax 17gm pkt ORAL SCH (08:37)
[2016-09-12] MEDS: Citalopram Hydrobromide 10 MG TAB ORAL SCH (08:37)
[2016-09-12] MEDS: Heparin 5000 units/ml inj SUBQ SCH (08:39)
[2016-09-12] MEDS: ceFAZolin sod 1 GM in D5W 55 ML IVPB SCH (08:40)
[2016-09-12 08:54] VITALS: BP 120/67
[2016-09-12] MEDS: Advair 250/50 Inhaler - 14 dose INH SCH (09:00)
[2016-09-12] MEDS ORDERED: NS 275ml ONE (09:04)
[2016-09-12] MEDS ORDERED: Tubing IV Secondary IV ONE (09:04)
[2016-09-12] MEDS ORDERED: MIRALAX17 G2 ORAL (12:46)
[2016-09-12] MEDS ORDERED: DONEPEZIL HCL10 MG ORAL (12:46)
[2016-09-12] MEDS ORDERED: CELEXA20 MG ORAL (12:46)
[2016-09-12] MEDS ORDERED: ADVAIR 250/501 PUFFS INH (12:46)
[2016-09-12] MEDS ORDERED: SYNTHROID50 MCG ORAL (12:46)
[2016-09-12] MEDS ORDERED: SEROQUEL25 MG ORAL (12:46)
[2016-09-12] MEDS ORDERED: ACETAMINOPHEN650 MG RECTAL (12:46)
[2016-09-12] MEDS ORDERED: PROTONIX40 MG ORAL (12:46)
--- NOTE | 2016-09-12 12:58 | Geriatric Progress Note ---
Assessment/Plan Problems: (1) UTI (urinary tract infection) (2) Dementia Assessment/Plan Doing well. Repeat urine confirms E coli UTI. Convert to po Keflex. Able to d/c back to [facility]. Will hold Lasix, KCl for now. Reviewed with staff and [facility] medical practice administrator. Dictated #[id number] Discussed with: hospital staff, [facility] staff Subjective Interval Events Doing well per staff. Eating well. Patient chuckles, no coherent verbalization. Appears comfortable. Subjective Incoherent responses as to details due to patient cognitive deficits. Geriatric Geriatric Last 24 Hour Vital Signs Date Time Temp Pulse Resp B/P Pulse Ox O2 Delivery O2 Flow Rate FiO2 09/12/16 10:51 79 18 98 Room Air 09/12/16 10:41 75 18 93 Room Air 21 09/12/16 08:54 97.2 77 17 120/67 99 Room Air 09/12/16 07:31 77 18 98 Room Air 09/12/16 07:21 93 Room Air 09/12/16 07:21 Room Air 09/12/16 07:21 73 18 93 Room Air 21 09/12/16 04:00 98.1 69 20 123/71 96 Room Air 09/12/16 03:20 76 16 98 Room Air 09/12/16 03:12 75 16 94 Room Air 09/12/16 00:00 97.9 75 18 131/62 95 Room Air 09/11/16 23:14 79 16 98 Room Air 09/11/16 23:06 81 16 93 Room Air 21 09/11/16 20:00 98.4 79 20 127/65 96 Room Air 09/11/16 19:23 83 18 96 Room Air 09/11/16 19:16 86 16 94 Room Air 21 09/11/16 19:15 94 Room Air 09/11/16 19:15 Room Air 09/11/16 16:00 98.1 74 18 123/60 98 Nasal Cannula 09/11/16 15:59 96.6 61 19 136/74 99 Room Air 09/11/16 14:46 74 18 93 Room Air 21 09/11/16 14:46 74 18 93 Room Air 21 Intake and Output 09/11/16 09/12/16 19:00 07:00 Intake Total 1080.0 ml 55 ml Output Total 700 ml 700 ml Balance 380.0 ml -645 ml Intake Oral 720 ml IV Total 360.0 ml 55 ml Output Urine Total 700 ml 700 ml Laboratory Tests Test 09/12/16 05:05 White Blood Count 7.0 K/UL (4.8-10.8) Red Blood Count 3.79 M/UL (4.20-5.40) L Hemoglobin 12.8 G/DL (12.0-16.0) Hematocrit 38.2 % (37.0-47.0) Mean Corpuscular Volume 101 FL (80-99) H Mean Corpuscular Hemoglobin 33.8 PG (27.0-31.0) H Mean Corpuscular Hemoglobin Concent 33.6 G/DL (32.0-36.0) Red Cell Distribution Width 12.4 % (11.6-14.8) Platelet Count 172 K/UL (150-450) Mean Platelet Volume 7.3 FL (6.5-10.1) Neutrophils (%) (Auto) 70.6 % (45.0-75.0) Lymphocytes (%) (Auto) 21.7 % (20.0-45.0) Monocytes (%) (Auto) 7.0 % (1.0-10.0) Eosinophils (%) (Auto) 0.0 % (0.0-3.0) Basophils (%) (Auto) 0.8 % (0.0-2.0) Sodium Level 145 mEQ/L (135-145) Potassium Level 4.0 mEQ/L (3.4-4.9) Chloride Level 102 mEQ/L (98-107) Carbon Dioxide Level 26 mEQ/L (20-30) Anion Gap 17 (5-15) H Blood Urea Nitrogen 16 mg/dL (7-23) Creatinine 0.8 mg/dL (0.5-0.9) Estimat Glomerular Filtration Rate mL/min (>60) Glucose Level 88 mg/dL (74-106) Calcium Level 9.5 mg/dL (8.6-10.2) Current Medications Medications (Trade) Dose Ordered Sig/Hitesh Route PRN Reason Start Time Stop Time Status Last Admin Dose Admin Acetaminophen (Tylenol) 650 mg Q4H PRN RECTAL Mild Pain (Pain Scale 1-3) 09/09/16 22:15 10/09/16 22:14 09/09/16 22:28 Albuterol/ Ipratropium (DuoNeb 0.5-3(2.5)mg/3ml) 3 ml Q4HRT HHN 09/09/16 23:00 09/14/16 22:59 09/12/16 10:41 Cephalexin (Keflex) 250 mg Q8H ORAL 09/12/16 14:00 09/19/16 06:01 Citalopram Hydrobromide (celeXA) 10 mg DAILY ORAL 09/11/16 09:00 10/11/16 08:59 09/12/16 08:37 Donepezil HCl (Aricept) 10 mg QHS ORAL 09/10/16 21:00 10/10/16 20:59 09/11/16 20:47 Heparin Sodium (Porcine) (Heparin 5000 units/ml) 5,000 units EVERY 12 HOURS SUBQ 09/10/16 21:00 10/10/16 20:59 09/12/16 08:39 Levothyroxine Sodium (Synthroid) 50 mcg DAILY@0630 ORAL 09/11/16 06:30 10/11/16 06:29 09/12/16 06:09 Pantoprazole (Protonix) 40 mg DAILY ORAL 09/11/16 09:00 10/11/16 08:59 09/12/16 08:37 Polyethylene Glycol (Miralax) 17 gm DAILY ORAL 09/11/16 09:00 10/11/16 08:59 09/12/16 08:37 Quetiapine Fumarate (SEROquel) 12.5 mg Q12HR ORAL 09/10/16 21:00 10/10/16 20:59 09/12/16 08:37 Salmeterol Xinafoate/ Fluticasone (Advair 250/50 Diskus) 1 puffs Q12HR INH 09/09/16 22:30 10/09/16 22:29 09/10/16 09:09 Height (Feet): 5 Height (Inches): 2.00 Weight (Pounds): 159 General Appearance: no apparent distress, alert, non-toxic Head: normocephalic, atraumatic Eyes: bilateral anicteric ENT: normal voice Neck: full range of motion, no mass Respiratory: lungs clear Cardiovascular: regular rate, rhythm Gastrointestinal: normal bowel sounds, non tender, soft, no mass, no organomegaly, non-distended Musculoskeletal: no calf tenderness Edema: no edema noted Generalized SHANNON RO September 12, 2016 12:58
[2016-09-12] MEDS ORDERED: CEPHALEXIN250 MG ORAL (13:07)
[2016-09-12] MEDS ORDERED: Cephalexin 250mg Cap ORAL SCH (14:00)
[2016-09-12] MEDS ORDERED: Cephalexin 500mg cap ORAL SCH (14:00)
--- NOTE | 2016-09-13 05:16 | Discharge Summary ---
DATE OF ADMISSION: 09/10/2016 DATE OF DISCHARGE: 09/12/2016 DISCHARGE DIAGNOSES: 1. Escherichia coli urinary tract infection. 2. Metabolic encephalopathy associated with above, resolving. 3. Mild volume depletion with mild acute kidney injury, elevation of lactate consistent with incipient sepsis due to above. 4. Advanced dementia with behavioral changes. 5. Major depressive disorder. 6. History of chronic obstructive lung disease with bronchospasm. 7. History of diabetes, on insulin, not currently requiring treatment. 8. Hypothyroidism. 9. Hyperlipidemia. 10. History of peripheral edema. 11. Degenerative joint disease. 12. History of atrial fibrillation. 13. Prior right arm fracture. 14. Status post cataract surgery. 15. Gait disorder with immobility and limited transfers. 16. Distant history of right hip and gluteal cellulitis with deep necrosis status post debridement, healed. 17. Apparent dysphagia with episodic postprandial coughing, resolved with pureed diet. 18. History of hypokalemia requiring potassium supplementation. HISTORY OF PRESENT ILLNESS: The patient is an 80-year-old woman, who had vomiting and relative hypotension with altered mental status and was brought to the emergency room for evaluation. Details of the history and physical are per the dictation of 09/10/2016. HOSPITAL COURSE: The patient had evidence of significant pyuria and bacteriuria on her urinalysis. There is initial concern of pneumonitis, but chest x-ray appeared to be clear and she had no persistent pulmonary symptoms. It was thought that her relative hypoxia and apparent respiratory changes were likely associated with hypotension and sedation associated with the incipient sepsis with urinary tract infection. The patient was hydrated and placed on broad-spectrum antibiotic coverage. The urine eventually returned with E. coli, resistant only to ampicillin and trimethoprim sulfa. The patient's antibiotic coverage was narrowed to cefazolin intravenously and on discharge will be converted to Keflex. Her mentation returned to baseline with hydration and antibiotic treatment. Her oral intake was good on the pureed diet and the patient had no evidence of further acute changes. Her lactate level did require some 36 hours to return to normal. Otherwise, the patient now is back to her baseline and will return to her [facility] facility. As per prior election, her code status is full code. DISCHARGE MEDICATIONS: The patient's medications on discharge will include Tylenol p.r.n., Celexa 10 mg daily, donepezil 10 mg at bedtime, Advair 250/50 one puff q.12 hours, levothyroxine 50 mcg daily, Protonix 40 mg daily, MiraLax 17 g daily, Seroquel 12.5 mg q.12 hours, Refresh Tears p.r.n., D3 2000 units daily, cranberry 400 mg daily, and Combivent Respimat one spray daily. The patient's Lasix and potassium will be held until there is evidence that she is reaccumulating fluid. The patient will also be given Keflex 250 mg q.8 hours for additional seven days. The patient will be followed up as an outpatient in the office. Jamin Cameron M.D. DR: BINTA JOB#: [id number] CC: DILIP
== END 2016-09-12 15:32 | DRG 689 ==
LOC: EDBD 18:15 → EMR 19:10 → 4W 19:28 → EDBEDREQ 19:56
DX: N39.0 Urinary tract infection, site not specified (principal); G93.41 Metabolic encephalopathy; N17.9 Acute kidney failure, unspecified; I95.9 Hypotension, unspecified; R13.10 Dysphagia, unspecified; F03.90 Unspecified dementia, unspecified severity, without behavioral disturbance, psychotic disturbance, mood disturbance, and anxiety; E11.9 Type 2 diabetes mellitus without complications; B96.20 Unspecified Escherichia coli [E. coli] as the cause of diseases classified elsewhere; F32.9 Major depressive disorder, single episode, unspecified; E03.9 Hypothyroidism, unspecified; E78.5 Hyperlipidemia, unspecified; Z79.4 Long term (current) use of insulin; R09.02 Hypoxemia
CPT/HCPCS: 36415; 71010; 80048; 80053; 81001; 81003; 82550; 83605; 83880; 84484; 85025; 85610; 85730; 87040; 87081; 87086; 87181; 93005; 94640; 94760; J7620

== ENCOUNTER 2016-10-21 12:05 | Outpatient (CLI) | payer MEDICARE ==
[~2016-10-21 12:05] MED LIST: ACETAMINOPHEN650 MG RECTAL; ADVAIR 250-501 EACH INH; ADVAIR 250/501 PUFFS INH; ARICEPT10 MG ORAL; CELEXA20 MG ORAL; CEPHALEXIN250 MG ORAL; COMBIVENT RESPIM4 GM IH; CRANBERRY400 MG PO; DOCUSATE SODIU100 MG ORAL; DONEPEZIL HCL10 MG ORAL; FUROSEMIDE20 M1 ORAL; MIRALAX17 G2 ORAL; MULTIVITAMINS1 EAC2 ORAL; OMEPRAZOLE20 M2 ORAL; PROTONIX40 MG ORAL; REFRESH TEARS15 ML OP; SEROQUEL25 MG ORAL; SYNTHROID50 MCG ORAL; VITAMIN D-40400 UNIT ORAL
[2016-10-21 12:31] LABS: BASOPHILS % (AUTO) 0.9 % (0.0-2.0); LYMPHOCYTES % (AUTO) 15.8 % (20.0-45.0); MEAN CORPUSCULAR HEMOGLOBIN 32.7 PG (27.0-31.0); MEAN CORPUSCULAR HGB CONC 31.5 G/DL (32.0-36.0); MEAN CORPUSCULAR VOLUME 104 FL (80-99); MEAN PLATELET VOLUME 6.4 FL (6.5-10.1); MONOCYTES % (AUTO) 15.1 % (1.0-10.0); NEUTROPHILS % (AUTO) 68.3 % (45.0-75.0); PLATELET COUNT 215 K/UL (150-450); RED CELL DISTRIBUTION WIDTH 12.7 % (11.6-14.8)
[2016-10-21 12:53] LABS: ALANINE AMINOTRANSFERASE 18 U/L (3-33); ANION GAP 12 (5-15); ASPARTATE AMINO TRANSFERASE 25 U/L (5-40); CARBON DIOXIDE 24 mEQ/L (20-30); CHLORIDE 101 mEQ/L (98-107); CREATININE 0.7 mg/dL (0.5-0.9); HEMOLYSIS 5; POTASSIUM 4.1 mEQ/L (3.4-4.9); SODIUM 137 mEQ/L (135-145); TOTAL PROTEIN 7.1 g/dL (6.6-8.7)
--- NOTE | 2016-10-21 15:10 | Diagnostic Imaging Report ---
Indication: Dyspnea Comparison: 09/09/16 A single view chest radiograph was obtained. Findings: There is a right basilar infiltrate. Heart is mildly enlarged. Bones are osteopenic. There are surgical clips in the right upper quadrant of abdomen. Aorta is ectatic. Impression: Right basilar infiltrate suspected. Please correlate clinically.
== END 2016-10-21 14:05 | disposition home or self-care (01) ==
LOC: RAD 12:05
DX: R06.00 Dyspnea, unspecified (principal); R41.82 Altered mental status, unspecified
CPT/HCPCS: 36415; 71010; 80053; 82607; 83880; 84443; 85025

== ENCOUNTER 2016-10-27 10:18 | Inpatient (IN) | payer MEDICARE, BC ==
[2016-10-27] VITALS (7 sets, daily range): BP systolic 102–144; BP diastolic 45–92
[~2016-10-27] VITALS: Ht 152.4 cm; Wt 63.5 kg
[2016-10-27] MEDS ORDERED: ARTIFICIAL TEAR15 ML BOTH EYES (10:27)
[2016-10-27] MEDS ORDERED: VITAMIN D1000 UNI1 ORAL (10:27)
[2016-10-27] MEDS ORDERED: COMBIVENT RESPIM4 GM IH (10:27)
[2016-10-27] MEDS ORDERED: ADVAIR 250-501 EACH INH (10:27)
[2016-10-27] MEDS ORDERED: Morphine Sulfate 4mg/ml Inj IVP ONE ×3 (10:30→14:30)
[2016-10-27 11:20] LABS: ALANINE AMINOTRANSFERASE 17 U/L (3-33); ALBUMIN/GLOBULIN RATIO 1.2 (1.0-2.7); ANION GAP 13 (5-15); ASPARTATE AMINO TRANSFERASE 19 U/L (5-40); BASOPHILS % (AUTO) 0.7 % (0.0-2.0); CALCIUM 8.9 mg/dL (8.6-10.2); CARBON DIOXIDE 24 mEQ/L (20-30); CHLORIDE 102 mEQ/L (98-107); CREATININE 0.6 mg/dL (0.5-0.9); HEMOLYSIS 4; LYMPHOCYTES % (AUTO) 15.4 % (20.0-45.0); MEAN CORPUSCULAR HGB CONC 31.9 G/DL (32.0-36.0); MEAN CORPUSCULAR VOLUME 104 FL (80-99); MEAN PLATELET VOLUME 5.9 FL (6.5-10.1); MONOCYTES % (AUTO) 9.4 % (1.0-10.0); NEUTROPHILS % (AUTO) 73.5 % (45.0-75.0); PLATELET COUNT 275 K/UL (150-450); POTASSIUM 4.1 mEQ/L (3.4-4.9); RED BLOOD COUNT 3.49 M/UL (4.20-5.40); RED CELL DISTRIBUTION WIDTH 12.9 % (11.6-14.8); SODIUM 139 mEQ/L (135-145); TOTAL PROTEIN 6.5 g/dL (6.6-8.7); WHITE BLOOD COUNT 8.4 K/UL (4.8-10.8)
[2016-10-27 11:36] LABS: INR 0.9 (0.9-1.1); PROTHROMBIN TIME 9.4 SEC (9.30-11.50)
--- NOTE | 2016-10-27 11:58 | Emergency Room Report ---
History of Present Illness General Chief Complaint: Lower Extremity Injury Source: EMS Present Illness HPI The patient was unable to ambulate at her [id number]. They did not witness the fall but she's complaining about pain in her left hip. The patient is unable to give any history. Apparently she is not ambulatory. She suffers from dementia. She was admitted 09/10- 1. Escherichia coli urinary tract infection. 2. Metabolic encephalopathy associated with above, resolving. 3. Mild volume depletion with mild acute kidney injury, elevation of lactate consistent with incipient sepsis due to above. 4. Advanced dementia with behavioral changes. 5. Major depressive disorder. 6. History of chronic obstructive lung disease with bronchospasm. 7. History of diabetes, on insulin, not currently requiring treatment. 8. Hypothyroidism. 9. Hyperlipidemia. 10. History of peripheral edema. 11. Degenerative joint disease. 12. History of atrial fibrillation. 13. Prior right arm fracture. 14. Status post cataract surgery. 15. Gait disorder with immobility and limited transfers. 16. Distant history of right hip and gluteal cellulitis with deep necrosis status post debridement, healed. 17. Apparent dysphagia with episodic postprandial coughing, resolved with pureed diet. 18. History of hypokalemia requiring potassium supplementation. Allergies: Coded Allergies: NO KNOWN ALLERGIES (Unverified Allergy, Unknown, 09/09/16) Patient History Limited by: medical condition Past Medical History: see triage record, old chart reviewed Social History Narrative board and care - she has a conservator Reviewed Nursing Documentation: PMH: Agreed, PSxH: Agreed Nursing Documentation-PMH Hx Cardiac Problems: No Hx Hypertension: No - HYPOTHYROIDISM Hx Pacemaker: No Hx Asthma: Yes Hx COPD: Yes Hx Diabetes: No Hx Cancer: No Hx Gastrointestinal Problems: No Hx Dialysis: No Hx Neurological Problems: Yes - DEMENTIA Hx Cerebrovascular Accident: No Hx Dementia: Yes Hx Seizures: No Review of Systems All Other Systems: limited Physical Exam Vital Signs Date Time Temp Pulse Resp B/P Pulse Ox O2 Delivery O2 Flow Rate FiO2 10/27/16 10:13 98.2 90 18 119/62 92 Room Air 10/27/16 11:03 3.0 Sp02 EP Interpretation: reviewed, normal General Appearance: alert, other - moaning occasionally, Chronically Ill Head: normocephalic Eyes: bilateral eye PERRL, bilateral eye normal inspection ENT: moist mucus membranes Neck: supple Respiratory: lungs clear, normal breath sounds Cardiovascular #1: regular rate, rhythm Cardiovascular #2: 2+ radial (R) Gastrointestinal: normal inspection, normal bowel sounds, non tender, no mass, non-distended Musculoskeletal: back normal, pelvis stable, other - L hip tenderness with any PROM. Knee not tender Neurologic: alert, other - moves toes and reacts to touching all extrem, oriented - 1 Psychiatric: anxious Skin: normal inspection, warm/dry Medical Decision Making Diagnostic Impression: Primary Impression: Surgical neck fracture left femur Additional Impression: Dementia with behavioral disturbance Qualified Codes: F03.91 - Unspecified dementia with behavioral disturbance ER Course Patient with L hip pain. Lack of history. Ddx; contusion, fracture amongst others. Evaluation with labs, xrays and EKG (possible needing operation). Treatment with IV hydration and analgesia. Xray with surgical neck fracture. Patient improved with analgesia. EKG CXR and labs unremarkable. Discussed with Dr. Ro. Apparently her conservator is questioning whether to perform operation as she is non-ambulatory. Contacted Dr. Frazier. RN requested another dose of analgesic as more restless. Patient more calm after. Admit med Dr. Ro. Laboratory Tests Test 10/27/16 10:40 10/27/16 22:00 10/28/16 05:55 10/29/16 05:20 White Blood Count 8.4 K/UL (4.8-10.8) 6.7 K/UL (4.8-10.8) 12.2 K/UL (4.8-10.8) #H Red Blood Count 3.49 M/UL (4.20-5.40) L 3.35 M/UL (4.20-5.40) L 3.33 M/UL (4.20-5.40) L Hemoglobin 11.5 G/DL (12.0-16.0) L 11.2 G/DL (12.0-16.0) L 11.3 G/DL (12.0-16.0) L Hematocrit 36.2 % (37.0-47.0) L 35.3 % (37.0-47.0) L 34.8 % (37.0-47.0) L Mean Corpuscular Volume 104 FL (80-99) H 105 FL (80-99) H 105 FL (80-99) H Mean Corpuscular Hemoglobin 33.0 PG (27.0-31.0) H 33.4 PG (27.0-31.0) H 33.9 PG (27.0-31.0) H Mean Corpuscular Hemoglobin Concent 31.9 G/DL (32.0-36.0) L 31.8 G/DL (32.0-36.0) L 32.4 G/DL (32.0-36.0) Red Cell Distribution Width 12.9 % (11.6-14.8) 12.8 % (11.6-14.8) 12.3 % (11.6-14.8) Platelet Count 275 K/UL (150-450) 266 K/UL (150-450) 294 K/UL (150-450) Mean Platelet Volume 5.9 FL (6.5-10.1) L 5.8 FL (6.5-10.1) L 5.8 FL (6.5-10.1) L Neutrophils (%) (Auto) 73.5 % (45.0-75.0) % (45.0-75.0) 81.6 % (45.0-75.0) H Lymphocytes (%) (Auto) 15.4 % (20.0-45.0) L % (20.0-45.0) 10.9 % (20.0-45.0) L Monocytes (%) (Auto) 9.4 % (1.0-10.0) % (1.0-10.0) 6.9 % (1.0-10.0) Eosinophils (%) (Auto) 1.0 % (0.0-3.0) % (0.0-3.0) 0.1 % (0.0-3.0) Basophils (%) (Auto) 0.7 % (0.0-2.0) % (0.0-2.0) 0.6 % (0.0-2.0) Prothrombin Time 9.4 SEC (9.30-11.50) Prothrombin Time INR 0.9 (0.9-1.1) PTT 27 SEC (23-33) Sodium Level 139 mEQ/L (135-145) 136 mEQ/L (135-145) Pending Potassium Level 4.1 mEQ/L (3.4-4.9) 4.5 mEQ/L (3.4-4.9) Pending Chloride Level 102 mEQ/L (98-107) 99 mEQ/L (98-107) Pending Carbon Dioxide Level 24 mEQ/L (20-30) 27 mEQ/L (20-30) Pending Anion Gap 13 (5-15) 10 (5-15) Blood Urea Nitrogen 15 mg/dL (7-23) 14 mg/dL (7-23) Pending Creatinine 0.6 mg/dL (0.5-0.9) 0.7 mg/dL (0.5-0.9) Pending Estimate Glomerular Filtration Rate mL/min (>60) mL/min (>60) Pending Glucose Level 122 mg/dL (74-106) H 107 mg/dL (74-106) H Pending Calcium Level 8.9 mg/dL (8.6-10.2) 8.9 mg/dL (8.6-10.2) Pending Total Bilirubin 0.2 mg/dL (0.0-1.2) 0.3 mg/dL (0.0-1.2) Aspartate Amino Transferase (AST) 19 U/L (5-40) 25 U/L (5-40) Alanine Aminotransferase (ALT) 17 U/L (3-33) 21 U/L (3-33) Alkaline Phosphatase 119 U/L (35-104) H 145 U/L (35-104) H Total Protein 6.5 g/dL (6.6-8.7) L 6.3 g/dL (6.6-8.7) L Albumin 3.6 g/dL (3.5-5.2) 3.5 g/dL (3.5-5.2) Globulin 2.9 g/dL 2.8 g/dL Albumin/Globulin Ratio 1.2 (1.0-2.7) 1.2 (1.0-2.7) Urine Color Yellow Urine Appearance Clear Urine pH 6.5 (4.5-8.0) Urine Specific [place] 1.010 (1.005-1.035) Urine Protein Negative (NEGATIVE) Urine Glucose (UA) Negative (NEGATIVE) Urine Ketones Negative (NEGATIVE) Urine Occult Blood Negative (NEGATIVE) Urine Nitrite Negative (NEGATIVE) Urine Bilirubin Negative (NEGATIVE) Urine Urobilinogen Normal MG/DL (0.0-1.0) Urine Leukocyte Esterase Negative (NEGATIVE) Urine RBC 0-2 /HPF (0 - 2) Urine WBC 0 /HPF (0 - 2) Urine Squamous Epithelial Cells Few /LPF (NONE/OCC) Urine Bacteria None /HPF (NONE) Differential Total Cells Counted 100 Neutrophils % (Manual) 67 % (45-75) Lymphocytes % (Manual) 21 % (20-45) Monocytes % (Manual) 8 % (1-10) Eosinophils % (Manual) 4 % (0-3) H Basophils % (Manual) 0 % (0-2) Band Neutrophils 0 % (0-8) Platelet Estimate Adequate Platelet Morphology Normal Macrocytosis 1+ EKG Diagnostic Results Rate: normal Rhythm: NSR ST Segments: no acute changes Rhythm Strip Diag. Results EP Interpretation: yes Rhythm: NSR, no PVC's, no ectopy Chest X-Ray Diagnostic Results Chest X-Ray Diagnostic Results : Chest X-Ray Ordered: Yes # of Views/Limited/Complete: 1 View Indication: Other EP Interpretation: Yes Interpretation: no consolidation, no effusion, no pneumothorax, no acute cardiopulmonary disease Impression: No acute disease Interpreting ER Provider: Electronic signiture Ron Metzger MD Other X-Ray Diagnostic Results Other X-Ray Diagnostic Results #1: X-Ray ordered: AP pelvis # of Views/Limited Vs Complete: 1 View Indication: Pain EP Interpretation: Yes Interpretation: no soft tissue swelling, nonspecific bowel gas, other - hip fx Impression: Other Interpreting ER Provider: Electronic sign Ron Metzger MD Other X-Ray Diagnostic Results #2: X-Ray ordered: L femur # of Views/Limited Vs Complete: 4 View Indication: Pain EP Interpretation: Yes Interpretation: no soft tissue swelling, other - surg neck fx, angulated and displaced Impression: Other Interpreting ER Provider: Electronic sign Ron Metzger MD Last Vital Signs Date Time Temp Pulse Resp B/P Pulse Ox O2 Delivery O2 Flow Rate FiO2 10/27/16 14:30 98.2 85 12 126/65 99 Nasal Cannula 3.0 Status: improved Disposition: ADMITTED INPATIENT Condition: Serious Referrals: SHANNON RO (PCP) Ron Metzger M.D. Oct 27, 2016 11:58
[2016-10-27] MEDS ORDERED: Acetaminophen 650 MG SUPP RECTAL PRN (14:45)
[2016-10-27] MEDS ORDERED: Morphine Sulfate 4mg/ml Inj IVP PRN (14:45)
--- NOTE | 2016-10-27 14:47 | Diagnostic Imaging Report ---
Indication: Chest pain Technique: One view of the chest Comparison: 7 09/17/16 Findings: The lungs and pleural space are clear. Heart size is borderline enlarged. The aorta is tortuous. Previously demonstrated right basilar infiltrate is no longer evident Impression: No acute process
--- NOTE | 2016-10-27 14:54 | Diagnostic Imaging Report ---
Indication: TRAUMA, pain, status post fall Technique: One view of the pelvis Comparison: None Findings: There is a fracture of the left femoral neck. This is superiorly displaced by about one half bone width. No definite pelvic fracture demonstrated. There is mild narrowing of the right hip joint. Bones are osteoporotic Impression: Positive for left femoral neck fracture Electronic medical record indicates this was recognized by the emergency room physician
--- NOTE | 2016-10-27 14:56 | Diagnostic Imaging Report ---
Indications: TRAUMA, status post fall Technique: Two views of the left femur Comparison: None Findings: There is a fracture of the left femoral neck, superiorly displaced by about one bone width. A Villareal catheter is in place. No distal femoral shaft fracture demonstrated. There are degenerative changes, mostly proliferative, of the knee. Impression: Positive for femoral neck fracture
--- NOTE | 2016-10-27 15:21 | Geriatric Progress Note ---
Subjective Interval Events 80 y/o woman with L femoral neck fracture, with no explicit trauma noted. Developed apparent pain after being seen as outpatient, undergoing CXR at [facility], tx for cough with nebulizer therapy. Portable xray at [facility] revealed fracture, brought today to ED for evaluation/admission. Because of limited mobility, ? raised of non-surgical treatment. However, in ER has required MS 4mg x 2 for pain control, leg internally rotated. May require surgical reduction for pain control and ability to sit comfortably in w/ c to maintain current quality of life. PMH: 1. Advanced demntia with behavioral changes. 2. Hx DM, currently not requiring tx. 3. COPD with bronchospasm. 4. Hx of a fib. 5. Hypothyroidism. 6. Hyperlipidemia. 7. Hx RUE fracture. 8. Hx of peripheral edema. 9. Distant hx of R hip/gluteal cellulitis with deep necrosis, s/p debridement, healed. 10. Hx major depressive disorder. 11. Recent E coli UTI, tx'ed. 12. Apparent element of dysphagia, with episodic postprandial coughing, resolved on puree diet. 13. Gait disorder with limited transfers. 14. s/p cataract surgery. Meds: Tylenol prn. Celexa 10mg daily. Donepezil 10mg qhs. Advair 250/50 1 puff q12 Combivent Respimat tid. Levothyroxine 50 mcg daily. Protonix 40 mg daily. MiraLax 17gm daily. Seroquel 12.5mg q12. Refresh Tears prn. Vit D3 2000IU daily. Cranberry 400 daily. Alert, responds with aphasic speech. Appears to deny pain at this time. Chest clear. CV RR. Abdomen benign. Ext LLE int rotated, no edema, no calf tenderness. Discussed with rn intensive care unit, await ortho eval by Dr. Frazier re ? surgery. Check echo, cardiology eval requested from Dr. Zavala. DNR by prior POLST and discussion with Quin Lea. Dictated #[id number] Geriatric Geriatric Last 24 Hour Vital Signs Date Time Temp Pulse Resp B/P Pulse Ox O2 Delivery O2 Flow Rate FiO2 10/27/16 14:30 98.2 85 12 126/65 99 Nasal Cannula 3.0 10/27/16 14:19 85 12 126/65 99 Nasal Cannula 3.0 10/27/16 14:08 98.2 10/27/16 13:07 86 15 106/92 98 Nasal Cannula 3.0 10/27/16 12:00 82 16 144/62 99 Nasal Cannula 3.0 10/27/16 11:14 98.2 10/27/16 11:03 81 12 104/63 99 Nasal Cannula 3.0 10/27/16 10:59 79 15 106/91 90 Room Air 10/27/16 10:13 98.2 90 18 119/62 92 Room Air Laboratory Tests Test 10/27/16 10:40 White Blood Count 8.4 K/UL (4.8-10.8) Red Blood Count 3.49 M/UL (4.20-5.40) L Hemoglobin 11.5 G/DL (12.0-16.0) L Hematocrit 36.2 % (37.0-47.0) L Mean Corpuscular Volume 104 FL (80-99) H Mean Corpuscular Hemoglobin 33.0 PG (27.0-31.0) H Mean Corpuscular Hemoglobin Concent 31.9 G/DL (32.0-36.0) L Red Cell Distribution Width 12.9 % (11.6-14.8) Platelet Count 275 K/UL (150-450) Mean Platelet Volume 5.9 FL (6.5-10.1) L Neutrophils (%) (Auto) 73.5 % (45.0-75.0) Lymphocytes (%) (Auto) 15.4 % (20.0-45.0) L Monocytes (%) (Auto) 9.4 % (1.0-10.0) Eosinophils (%) (Auto) 1.0 % (0.0-3.0) Basophils (%) (Auto) 0.7 % (0.0-2.0) Prothrombin Time 9.4 SEC (9.30-11.50) Prothromb Time International Ratio 0.9 (0.9-1.1) Activated Partial Thromboplast Time 27 SEC (23-33) Sodium Level 139 mEQ/L (135-145) Potassium Level 4.1 mEQ/L (3.4-4.9) Chloride Level 102 mEQ/L (98-107) Carbon Dioxide Level 24 mEQ/L (20-30) Anion Gap 13 (5-15) Blood Urea Nitrogen 15 mg/dL (7-23) Creatinine 0.6 mg/dL (0.5-0.9) Estimat Glomerular Filtration Rate mL/min (>60) Glucose Level 122 mg/dL (74-106) H Calcium Level 8.9 mg/dL (8.6-10.2) Total Bilirubin 0.2 mg/dL (0.0-1.2) Aspartate Amino Transf (AST/SGOT) 19 U/L (5-40) Alanine Aminotransferase (ALT/SGPT) 17 U/L (3-33) Alkaline Phosphatase 119 U/L (35-104) H Total Protein 6.5 g/dL (6.6-8.7) L Albumin 3.6 g/dL (3.5-5.2) Globulin 2.9 g/dL Albumin/Globulin Ratio 1.2 (1.0-2.7) Current Medications Medications (Trade) Dose Ordered Sig/Hitesh Route PRN Reason Start Time Stop Time Status Last Admin Dose Admin Acetaminophen (Tylenol) 650 mg Q4H PRN RECTAL For Pain 10/27/16 14:45 11/26/16 14:44 UNV Albuterol/ Ipratropium (DuoNeb 0.5-3(2.5)mg/3ml) 3 ml Q6HRT HHN 10/27/16 19:00 11/01/16 18:59 UNV Artificial Tears (Akwa-Tears) 1 drop TID BOTH EYES 10/27/16 18:00 11/26/16 17:59 UNV Citalopram Hydrobromide (celeXA) 10 mg DAILY ORAL 10/28/16 09:00 11/27/16 08:59 UNV Donepezil HCl (Aricept) 10 mg DAILY ORAL 10/28/16 09:00 11/27/16 08:59 UNV Enoxaparin Sodium (Lovenox) 40 mg DAILY SUBQ 10/27/16 14:45 11/26/16 14:44 UNV Levothyroxine Sodium (Synthroid) 50 mcg DAILY ORAL 10/28/16 09:00 11/27/16 08:59 UNV Morphine Sulfate (Morphine Sulfate) 2 mg EVERY 2 HOURS PRN IVP Moderate Breakthru Pain (5-7) 10/27/16 14:45 11/03/16 14:44 UNV Morphine Sulfate (Morphine Sulfate) 4 mg EVERY 2 HOURS PRN IVP Severe Pain (Pain Scale 7-10) 10/27/16 14:45 11/03/16 14:44 UNV Multivitamins (Multivitamins) 1 tab DAILY ORAL 10/28/16 09:00 11/27/16 08:59 UNV Pantoprazole (Protonix) 40 mg DAILY ORAL 10/28/16 09:00 11/27/16 08:59 UNV Polyethylene Glycol (Miralax) 17 gm DAILY ORAL 10/28/16 09:00 11/27/16 08:59 UNV Potassium Chloride/Sodium Chloride (KCl/0.45% NS 1000ml) 1,005 ml @ 50 mls/hr Q20H6M IV 10/27/16 14:45 11/26/16 14:44 UNV Quetiapine Fumarate 12.5 mg 12.5 mg BID ORAL 10/27/16 18:00 11/26/16 17:59 UNV Ramelteon (Rozerem) 8 mg QHS ORAL 10/27/16 21:00 11/26/16 20:59 UNV Salmeterol Xinafoate/ Fluticasone (Advair 250/50 Diskus) 1 puffs EVERY 12 HOURS INH 10/27/16 21:00 11/26/16 20:59 UNV Vitamin D (Vitamin D) 2,000 intlu DAILY ORAL 10/28/16 09:00 11/27/16 08:59 UNV Height (Feet): 5 Weight (Pounds): 140 SHANNON RO Oct 27, 2016 15:21
[2016-10-27] MEDS ORDERED: Morphine Sulfate 2mg/ml Inj IVP PRN (16:00)
--- NOTE | 2016-10-27 16:49 | Cardiology Report ---
APPROVED REPORT EXAM: Two-dimensional and M-mode echocardiogram with Doppler and color Doppler. INDICATION Atrial Fibrillation M-Mode DIMENSIONS IVSd1.3 (0.7-1.1cm)Left Atrium (MM)3.6 (1.6-4.0cm) LVDd4.4 (3.5-5.6cm)Aortic Root2.9 (2.0-3.7cm) PWd1.0 (0.7-1.1cm)Aortic Cusp Exc.1.5 (1.5-2.0cm) LVDs3.2 (2.5-4.0cm) PWs1.6 cm Technically difficult study due to pts position and arms blocking scan areas. Normal left ventricular chamber size, systolic function and wall motion to extent visualized. Left ventricular ejection fraction estimated to be 65 %. Study quality precludes accurate assessment of regional wall motion. Mild to moderate left ventricular hypertrophy by 2-D. No evidence of pericardial effusion. All other cardiac chamber sizes are within normal limits. Focal aortic valve sclerosis with adequate cusp excursion. Thickened mitral valve leaflets with normal excursion. Mitral annulus and aortic root calcification. Pulmonic valve not well visualized. Normal tricuspid valve structure. IVC at normal size with physiologic collapse. A color flow and spectral Doppler study was performed and revealed: Trace mitral regurgitation. Mitral diastolic velocities suggest reduced left ventricular relaxation c/w mild LV diastolic dysfunction (Grade I ). Trace tricuspid regurgitation. Tricuspid systolic velocities suggests peak right ventricular systolic pressure of 11 mmHg.
[2016-10-27] MEDS: Potassium Chloride 10 MEQ in 1/2 NS 1000ml 1,000 ML IV SCH (17:00)
[2016-10-27] MEDS: Artificial Tears 1.4% Op Soln BOTH EYES SCH (17:12)
[2016-10-27] MEDS: DuoNeb 0.5-3(2.5)mg/3ml neb HHN SCH (19:04)
[2016-10-27] MEDS: Ramelteon 8mg tab (Approved for Delirium use only) ORAL SCH (21:00)
[2016-10-27] MEDS: Advair 250/50 Inhaler - 14 dose INH SCH (21:00)
--- NOTE | 2016-10-27 21:16 | Cardiology Progress Note ---
Assessment/Plan Assessment/Plan femoral neck fracture advanced dementia hypothyroid risk assessment on clinical groudn is nto possible as pt not ambualtory nor is communicative if surgye is indeed needed will need to pursuit perfusion iamgin to assess risk will order ekg thank you [id number] Objective Last 24 Hour Vital Signs Date Time Temp Pulse Resp B/P Pulse Ox O2 Delivery O2 Flow Rate FiO2 10/27/16 20:00 97.8 82 20 102/68 96 Room Air 10/27/16 19:17 84 18 98 Nasal Cannula 3.0 32 10/27/16 19:10 Nasal Cannula 3.0 32 10/27/16 19:10 97 Nasal Cannula 3.0 32 10/27/16 19:07 32 10/27/16 19:07 82 18 Nasal Cannula 3.0 32 10/27/16 19:06 82 18 97 Nasal Cannula 3.0 32 10/27/16 16:00 97.5 10/27/16 16:00 97.5 83 18 106/45 96 Nasal Cannula 10/27/16 14:30 98.2 85 12 126/65 99 Nasal Cannula 3.0 10/27/16 14:19 85 12 126/65 99 Nasal Cannula 3.0 10/27/16 14:08 98.2 10/27/16 13:07 86 15 106/92 98 Nasal Cannula 3.0 10/27/16 12:00 82 16 144/62 99 Nasal Cannula 3.0 10/27/16 11:14 98.2 10/27/16 11:03 81 12 104/63 99 Nasal Cannula 3.0 10/27/16 10:59 79 15 106/91 90 Room Air 10/27/16 10:13 98.2 90 18 119/62 92 Room Air Laboratory Tests Test 10/27/16 10:40 White Blood Count 8.4 K/UL (4.8-10.8) Red Blood Count 3.49 M/UL (4.20-5.40) L Hemoglobin 11.5 G/DL (12.0-16.0) L Hematocrit 36.2 % (37.0-47.0) L Mean Corpuscular Volume 104 FL (80-99) H Mean Corpuscular Hemoglobin 33.0 PG (27.0-31.0) H Mean Corpuscular Hemoglobin Concent 31.9 G/DL (32.0-36.0) L Red Cell Distribution Width 12.9 % (11.6-14.8) Platelet Count 275 K/UL (150-450) Mean Platelet Volume 5.9 FL (6.5-10.1) L Neutrophils (%) (Auto) 73.5 % (45.0-75.0) Lymphocytes (%) (Auto) 15.4 % (20.0-45.0) L Monocytes (%) (Auto) 9.4 % (1.0-10.0) Eosinophils (%) (Auto) 1.0 % (0.0-3.0) Basophils (%) (Auto) 0.7 % (0.0-2.0) Prothrombin Time 9.4 SEC (9.30-11.50) Prothromb Time International Ratio 0.9 (0.9-1.1) Activated Partial Thromboplast Time 27 SEC (23-33) Sodium Level 139 mEQ/L (135-145) Potassium Level 4.1 mEQ/L (3.4-4.9) Chloride Level 102 mEQ/L (98-107) Carbon Dioxide Level 24 mEQ/L (20-30) Anion Gap 13 (5-15) Blood Urea Nitrogen 15 mg/dL (7-23) Creatinine 0.6 mg/dL (0.5-0.9) Estimat Glomerular Filtration Rate mL/min (>60) Glucose Level 122 mg/dL (74-106) H Calcium Level 8.9 mg/dL (8.6-10.2) Total Bilirubin 0.2 mg/dL (0.0-1.2) Aspartate Amino Transf (AST/SGOT) 19 U/L (5-40) Alanine Aminotransferase (ALT/SGPT) 17 U/L (3-33) Alkaline Phosphatase 119 U/L (35-104) H Total Protein 6.5 g/dL (6.6-8.7) L Albumin 3.6 g/dL (3.5-5.2) Globulin 2.9 g/dL Albumin/Globulin Ratio 1.2 (1.0-2.7) SRINI CARTY Oct 27, 2016 21:16
[2016-10-28] VITALS (18 sets, daily range): BP systolic 84–160; BP diastolic 36–77
[2016-10-28 00:46] LABS: APPEARANCE,URINE CLEAR; KETONES,URINE NEGATIVE (NEGATIVE); LEUKOCYTE ESTERASE ,URINE NEGATIVE (NEGATIVE); NITRITE,URINE NEGATIVE (NEGATIVE); PH,URINE 6.5 (4.5-8.0); PROTEIN,URINE NEGATIVE (NEGATIVE); UROBILINOGEN,URINE NORMAL MG/DL (0.0-1.0)
[2016-10-28 00:48] LABS: RBC,URINE 0-2 /HPF (0 - 2); SQUAMOUS EPITHELIAL CELL,UR FEW /LPF (NONE/OCC); WBC,URINE 0 /HPF (0 - 2)
--- NOTE | 2016-10-28 01:01 | History and Physical Report ---
DATE OF ADMISSION: 10/27/2016 IDENTIFICATION: The patient is an 81-year-old woman, who was admitted because of left hip fracture. HISTORY OF PRESENT ILLNESS: The patient is a frail elderly woman with advanced cognitive dysfunction who resides in an [facility] facility. She was hospitalized last at the end of August at [facility] for urinary tract infection with associated metabolic encephalopathy and mild volume depletion. There was initial mild elevation of lactate suggesting a septic picture. The patient responded well to therapy and returned to her [facility]. She was seen in the office last week with a complaint of increased cough. Examination at that time revealed some increased rhonchi superimposed on chronic obstructive lung disease. A chest x-ray was done, which showed increased markings in the right lower lobe, although this was patchy in nature and not definitive in terms of possible pneumonia. The patient was treated with increased bronchodilator therapy and symptoms seemed to resolve. However, subsequently, the patient began to exhibit symptoms of discomfort associated with movement of her left leg. A portable x-ray was done at the [facility] and revealed evidence of a left femoral neck fracture. The patient was brought today to the emergency department of [facility] for further evaluation and subsequent admission. According to the configuration management administrator of the patient's [facility], the patient had exhibited for approximately two weeks some usual vocalizations, which were difficult to interpret because her speech is aphasic and incomprehensible. These were possibly associated with movement and changing position, but otherwise the patient appears entirely comfortable and this was also the case during her evaluation in the office last week. However, after returning from the chest x-ray, over the weekend, the patient was noted by the staff to have increasing discomfort in the left lower extremity. In retrospect, it may be the patient had a nondisplaced fracture, likely an osteoporotic insufficiency-type fracture, which may have displaced with some of the movement in transfers when she left the facility for the office visit and the subsequent chest x-ray. In any event, there was a concern that the patient's surgical risk is such that the patient might be better off with no surgical intervention. The patient was seen in the emergency room. After initial evaluation by Dr. Metzger, Dr. Metzger had treated the patient with morphine sulfate 4 mg IV push x2 over an approximately three-hour period with good resolution of her pain symptoms. The rest of the examination is fairly unremarkable. The patient had evidence on x-rays of a superiorly posteriorly displaced femoral neck fracture on the left side. When the patient was approached, she had incoherent verbalizations, which did not appear to be representing distress or discomfort. She smiled and when asked if she was comfortable, she appeared to indicate yes and when asked if she was having any pain, she appeared to shake her head and denied this, although the accuracy of these responses is difficult to fully interpret. PAST MEDICAL HISTORY: 1. The patient's past medical history is notable for advanced dementia with behavioral changes including agitation and paranoia, which has responded well to relatively low doses of antipsychotic therapy. 2. Major depressive disorder, which has also been treated with low dose of Celexa. 3. Chronic obstructive lung disease with bronchospasm. 4. Prior history of diabetes, treated with insulin, but currently not requiring treatment. 5. Hypothyroidism. 6. Hyperlipidemia. 7. History of peripheral edema. 8. Degenerative joint disease. 9. History of atrial fibrillation. 10. Apparent dysphagia with episodic postprandial coughing results on pureed diet. 11. History of right hip and gluteal cellulitis with deep necrosis, status post debridement, healed. 12. History of prior right arm fracture. 13. Status post cataract surgery. 14. Gait disorder with immobility and limited transferability. 15. Recent E. coli urinary tract infection. MEDICATIONS: Synthroid 50 mcg daily, Seroquel 12.5 mg q.12 h., MiraLAX 17 g daily, Protonix 40 mg daily, Celexa 10 mg daily, Aricept 10 mg at bedtime, Advair Diskus 250/50 mcg one puff twice a day, Combivent Respimat one spray t.i.d., multivitamins daily, vitamin D3 2000 units daily, cranberry 400 mg daily, and Refresh Tears both eyes q.i.d. p.r.n. ALLERGIES: No known allergies. SOCIAL HISTORY: The patient was born in [place]. 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 She is single with no children. She was placed under conservatorship because of psychiatric issues to Cassie Rodriguez at [facility] and currently is residing at [facility] since August of 2012. FAMILY HISTORY: Unknown. The patient does have a history of smoking, but significance of that is unknown at this time. REVIEW OF SYSTEMS: The patient is unable to respond in a coherent fashion, but as stated above does not appear in distress after getting morphine in the emergency room. PHYSICAL EXAMINATION: VITAL SIGNS: The patient's blood pressure is 126/65, heart rate is 85 and regular, respiratory rate is 12, temperature 98.2 degrees, and oxygen saturation 99%. The patient is receiving 3 liters on nasal cannula, but may not require that since her room air oxygen saturations are normally adequate. GENERAL: The patient is a well-developed woman, not in overt distress at the present time. HEAD AND NECK: Normocephalic and atraumatic skull. Mucosa appears adequately hydrated. The neck is without masses and appears to have normal range of motion. CHEST: No wheezing, rales, or rhonchi. Air movement seems adequate. CARDIAC: Regular rhythm. ABDOMEN: Normal bowel sounds. It is soft and nontender without masses or organomegaly. No suprapubic tenderness is appreciated. EXTREMITIES: Revealed the left lower extremity to be internally rotated and likely shortened. The joints diffusely show evidence of degenerative joint disease, but no acute arthropathy. SKIN: Apparently intact as per report. NODES: No adenopathy appreciated at the present time. NEUROLOGICAL: The patient does not have clear evidence of new focality, although her neurologic exam is quite abbreviated because of her mental status. However, she does respond with a guttural, difficult to understand verbalization, which is consistent with her baseline. LABORATORY AND DIAGNOSTIC DATA: The patient's initial laboratory data reveals a white count of 8.4, hematocrit of 36.2, MCV of 104, and platelet count of 275,000. Differential appears relatively normal. The INR is 0.9 and PTT is 27. Chemistry shows sodium of 139, potassium 4.1, chloride 102, bicarbonate 24, BUN 15, creatinine 0.6, glucose is 122, calcium 8.9, total bilirubin 0.2, AST 19, ALT 17, alkaline phosphatase 119, total protein 6.5, and albumin 3.6. A chest x-ray is reported as showing lungs and pleural spaces clear. Heart size is borderline enlarged. Aorta is tortuous. There is no evident infiltrate and no evidence of an acute process. The patient's left femoral x-rays revealed a superiorly displaced femoral neck fracture. Pelvic x-rays confirmed that fracture. The bones are osteopenic in appearance. IMPRESSION: The patient presents with a fracture, which on more detailed history may have been present as a nondisplaced insufficiency fracture for several weeks and converting to displaced fracture in the last few days. Initial consideration was given to not treating the fracture with surgery; however, given the amount of pain medication required by the patient in the emergency room and the fact that the leg is internally rotated, may suggest the patient will have difficulty with pain medication management and also may even after healing have difficulty sitting in a wheelchair without surgery. The situation was discussed with Malena Preciado, the configuration management administrator at her [facility], and with Quin Lea, the memory care director for the patient's conservator, and they are open to possible surgery depending on the Orthopedic evaluation. The situation was also discussed with Dr. Frazier who evaluated the patient and gave final recommendations in this regard. Consultation has also been requested from Dr. Juan Carlos Zavala. Given the patient's history of atrial fibrillation, her advanced age, and her limited mobility to determine whether the patient's cardiac perioperative risk is sufficiently well controlled, a cardiac echo has been ordered. Repeat laboratories will be ordered. The patient will be placed on intravenous fluids for optimal hydration and she will be placed on pureed diet as per her baseline and her baseline medications pending the final decision for possible surgery. Based on the initial data, it appears that the patient does not have unstable cardiac, pulmonary, or neurologic disease at the present time, and therefore, is probably relatively optimized for her surgery should it be indicated. Because of the pulmonary problems, obviously, the patient will be optimized with respiratory treatments prior to surgery as best as possible. She remains at high risk for perioperative delirium because of her cognitive status and Rozerem will be used prophylactically to assist with managing this. Additional interventions will be considered depending on the patient's initial clinical course, additional laboratories, and whether she actually is felt to be a surgical candidate or not. Jamin Cameron M.D. DR: HINA JOB#: [id number] CC: DILIP
[2016-10-28] MEDS: DuoNeb 0.5-3(2.5)mg/3ml neb HHN SCH ×4 (01:39→19:00)
[2016-10-28] MEDS: Advair 250/50 Inhaler - 14 dose INH SCH ×2 (07:00→20:16)
[2016-10-28 07:03] LABS: MEAN CORPUSCULAR HEMOGLOBIN 33.4 PG (27.0-31.0); MEAN CORPUSCULAR HGB CONC 31.8 G/DL (32.0-36.0); MEAN CORPUSCULAR VOLUME 105 FL (80-99); MEAN PLATELET VOLUME 5.8 FL (6.5-10.1); PLATELET COUNT 266 K/UL (150-450); RED BLOOD COUNT 3.35 M/UL (4.20-5.40); RED CELL DISTRIBUTION WIDTH 12.8 % (11.6-14.8); WHITE BLOOD COUNT 6.7 K/UL (4.8-10.8)
[2016-10-28 07:35] LABS: ALANINE AMINOTRANSFERASE 21 U/L (3-33); ALBUMIN/GLOBULIN RATIO 1.2 (1.0-2.7); ANION GAP 10 (5-15); ASPARTATE AMINO TRANSFERASE 25 U/L (5-40); CALCIUM 8.9 mg/dL (8.6-10.2); CARBON DIOXIDE 27 mEQ/L (20-30); CHLORIDE 99 mEQ/L (98-107); CREATININE 0.7 mg/dL (0.5-0.9); HEMOLYSIS 7; POTASSIUM 4.5 mEQ/L (3.4-4.9); SODIUM 136 mEQ/L (135-145); TOTAL PROTEIN 6.3 g/dL (6.6-8.7)
[2016-10-28 07:47] LABS: BAND NEUTROPHILS % (MANUAL) 0 % (0-8); BASOPHILS % (MANUAL) 0 % (0-2); EOSINOPHILS % (MANUAL) 4 % (0-3); LYMPHOCYTES % (MANUAL) 21 % (20-45); MACROCYTES 1+; NEUTROPHILS % (MANUAL) 67 % (45-75); PLATELET ESTIMATE ADEQUATE; PLATELET MORPHOLOGY NORMAL; TOTAL CELLS COUNTED 100
--- NOTE | 2016-10-28 08:45 | Consultation ---
DATE OF CONSULTATION: 10/27/2016 CARDIOLOGY CONSULTATION REFERRING PHYSICIAN: Roosevelt Guallpa D.O. REASON FOR REFERRAL: Preoperative risk assessment. HISTORY OF PRESENT ILLNESS: This is an elderly female who has advanced dementia and is not able to provide any meaningful history. The patient is an 80-year-old, who is a resident of [facility]. Apparently, had pain after being seen as an outpatient undergone chest x-ray at [facility] for treatment and evaluation of cough, and portable x-ray at the facility showed fracture and the patient was brought to the emergency room for further evaluation and the preoperative evaluation in question for risk assessment for possible surgical treatment of a fracture. Again, the patient was unable to provide any meaningful history whatsoever for risk assessment. The patient had clinical parameters rather difficult to perform. PAST MEDICAL HISTORY: Positive for dementia, diabetes, COPD with bronchospasm, history of atrial fibrillation, hypothyroidism, hyperlipidemia, right upper extremity fracture, peripheral edema, distant history of right gluteal cellulitis, depression, urinary tract infection, dysphagia, gait disorder, and cataract surgery. MEDICATIONS: Include Tylenol, Celexa, Aricept, Advair, Combivent, Synthroid 50 mcg, Protonix, MiraLAX, Seroquel, Refresh Tears, vitamin D, and cranberry juice. REVIEW OF SYSTEMS: Unable to obtain. PHYSICAL EXAMINATION: GENERAL: Shows to be an elderly female, awake, alert and responsive, but not verbal or communicative. VITAL SIGNS: Blood pressure is 102/60 to 106/45, heart rate 82, temperature 97 degrees, and 96% saturation on room air. NECK: Supple. No jugular venous distention. LUNGS: Appear to be clear to auscultation and percussion. CARDIAC: Regular rate and rhythm. No heaves, thrills, gallops, or rubs noted. ABDOMEN: Soft and nontender. Positive bowel sounds. EXTREMITIES: There is no clubbing, cyanosis, nor is there any edema. NEUROLOGIC: She is awake, alert, and responsive, but not verbal. LABORATORY DATA: White count 8.4, hemoglobin 11.5, and platelet count of 275,000. Sodium 139, potassium 4.1, chloride 102, bicarbonate 24, BUN 15, creatinine 0.6, and glucose 122. Liver function tests are all normal, except alkaline phosphatase of 119. ProBNP of 1020. Total protein is 6.5, B12 is 692, and TSH of 6.24. INR is 0.9 and PTT of 27. Urinalysis 15 to 20 WBCs. IMAGING STUDIES: She has had an echocardiogram performed here that shows ejection fraction of 65%, mild to moderate left ventricular hypertrophy, mild diastolic relaxation abnormality being noted. Chest x-ray shows no acute prosthesis, and femur x-ray shows femoral neck fracture. ASSESSMENT: 1. Femoral neck fracture. 2. Advanced dementia. 3. Hypothyroidism. PLAN: Dr. Guallpa, this patient was seen in cardiac consultation. Risk assessment and clinical exam is not possible as the patient has not been ambulatory nor is she communicative. If the surgery is indeed need of the patient then need to pursue a perfusion imaging test to help assist her risk and EKG will be ordered . Juan Carlos Zavala M.D. DR: ROBIN JOB#: [id number] CC:
[2016-10-28] MEDS: Vitamin D 1000 IU Tab ORAL SCH (09:00)
[2016-10-28] MEDS: Enoxaparin 30mg Inj SUBQ SCH (09:00)
[2016-10-28] MEDS: Donepezil 10mg tab ORAL SCH (09:00)
[2016-10-28] MEDS: Citalopram Hydrobromide 10 MG TAB ORAL SCH (09:00)
[2016-10-28] MEDS: Miralax 17gm pkt ORAL SCH (09:00)
[2016-10-28] MEDS: Artificial Tears 1.4% Op Soln BOTH EYES SCH ×3 (10:19→17:25)
[2016-10-28] MEDS: Potassium Chloride 10 MEQ in 1/2 NS 1000ml 1,000 ML IV SCH (12:04)
--- NOTE | 2016-10-28 13:47 | Geriatric Progress Note ---
Assessment/Plan Problems: (1) Hypothyroid (2) Hyperlipemia (3) Major depression, chronic (4) Hip fracture, left (5) Dementia with behavioral disturbance Assessment/Plan Patient apparently optimized at present. Risk for perioperative encephalopathy, respiratory complications are most concerning. Attempt to minimize analgesics, sedatives, anesthetics. Surgery this p.m. per Dr. Frazier. Discussed with: conservator, hospital staff Subjective Interval Events Patient with aphasic chuckle and vocalization on stimulation. Appears to deny discomfort. Staff reports no clinical changes. Discussed with Dr. Zavala. Given that primary goal is palliation and not extension of survival, and that she is not a candidate for invasive cardiac intervention, it is consensus that ischemia evaluation in the absence of apparent sxs, and normal echo EF, is not warranted. Situation was discussed with Quin Lea, who understands that ischemia eval is not likely to improve risk evaluation in this setting, and agrees to proceed with surgical reduction to minimize discomfort, and maintain some mobility, in order to maximize quality of life, with understanding that the patient's age, debility, chronic lung disease, and dementia increase her perioperative risk of complications. Subjective No meaningful responses elicited. Geriatric Geriatric Last 24 Hour Vital Signs Date Time Temp Pulse Resp B/P Pulse Ox O2 Delivery O2 Flow Rate FiO2 10/28/16 11:19 98.2 80 20 116/75 94 Room Air 10/28/16 08:33 97.5 82 20 114/71 94 Room Air 10/28/16 07:39 85 16 94 Room Air 10/28/16 07:37 21 10/28/16 07:37 93 Room Air 10/28/16 07:00 82 16 91 Room Air 10/28/16 04:35 97.8 74 19 106/65 96 Room Air 10/28/16 01:53 83 16 98 Nasal Cannula 2.0 28 10/28/16 01:38 32 10/28/16 01:38 84 18 98 Nasal Cannula 3.0 32 10/28/16 00:20 77 20 100/52 96 Room Air 10/28/16 00:13 97.6 80 21 160/77 96 Room Air 10/27/16 20:00 97.8 82 20 102/68 96 Room Air 10/27/16 19:17 84 18 98 Nasal Cannula 3.0 32 7/12/17 19:10 Nasal Cannula 3.0 32 10/27/16 19:10 97 Nasal Cannula 3.0 32 10/27/16 19:07 32 10/27/16 19:07 82 18 Nasal Cannula 3.0 32 10/27/16 19:06 82 18 97 Nasal Cannula 3.0 32 10/27/16 16:00 97.5 10/27/16 16:00 97.5 83 18 106/45 96 Nasal Cannula 10/27/16 14:30 98.2 85 12 126/65 99 Nasal Cannula 3.0 10/27/16 14:19 85 12 126/65 99 Nasal Cannula 3.0 10/27/16 14:08 98.2 Intake and Output 10/27/16 10/28/16 19:00 07:00 Intake Total 100 ml 600 ml Output Total 110 ml 400 ml Balance -10 ml 200 ml Intake Oral 0 ml IV Total 100 ml 600 ml Output Urine Total 110 ml 400 ml Laboratory Tests Test 10/27/16 22:00 10/28/16 05:55 Urine Color Yellow Urine Appearance Clear Urine pH 6.5 (4.5-8.0) Urine Specific [place] 1.010 (1.005-1.035) Urine Protein Negative (NEGATIVE) Urine Glucose (UA) Negative (NEGATIVE) Urine Ketones Negative (NEGATIVE) Urine Occult Blood Negative (NEGATIVE) Urine Nitrite Negative (NEGATIVE) Urine Bilirubin Negative (NEGATIVE) Urine Urobilinogen Normal MG/DL (0.0-1.0) Urine Leukocyte Esterase Negative (NEGATIVE) Urine RBC 0-2 /HPF (0 - 2) Urine WBC 0 /HPF (0 - 2) Urine Squamous Epithelial Cells Few /LPF (NONE/OCC) Urine Bacteria None /HPF (NONE) White Blood Count 6.7 K/UL (4.8-10.8) Red Blood Count 3.35 M/UL (4.20-5.40) L Hemoglobin 11.2 G/DL (12.0-16.0) L Hematocrit 35.3 % (37.0-47.0) L Mean Corpuscular Volume 105 FL (80-99) H Mean Corpuscular Hemoglobin 33.4 PG (27.0-31.0) H Mean Corpuscular Hemoglobin Concent 31.8 G/DL (32.0-36.0) L Red Cell Distribution Width 12.8 % (11.6-14.8) Platelet Count 266 K/UL (150-450) Mean Platelet Volume 5.8 FL (6.5-10.1) L Neutrophils (%) (Auto) % (45.0-75.0) Lymphocytes (%) (Auto) % (20.0-45.0) Monocytes (%) (Auto) % (1.0-10.0) Eosinophils (%) (Auto) % (0.0-3.0) Basophils (%) (Auto) % (0.0-2.0) Differential Total Cells Counted 100 Neutrophils % (Manual) 67 % (45-75) Lymphocytes % (Manual) 21 % (20-45) Monocytes % (Manual) 8 % (1-10) Eosinophils % (Manual) 4 % (0-3) H Basophils % (Manual) 0 % (0-2) Band Neutrophils 0 % (0-8) Platelet Estimate Adequate Platelet Morphology Normal Macrocytosis 1+ Sodium Level 136 mEQ/L (135-145) Potassium Level 4.5 mEQ/L (3.4-4.9) Chloride Level 99 mEQ/L (98-107) Carbon Dioxide Level 27 mEQ/L (20-30) Anion Gap 10 (5-15) Blood Urea Nitrogen 14 mg/dL (7-23) Creatinine 0.7 mg/dL (0.5-0.9) Estimat Glomerular Filtration Rate mL/min (>60) Glucose Level 107 mg/dL (74-106) H Calcium Level 8.9 mg/dL (8.6-10.2) Total Bilirubin 0.3 mg/dL (0.0-1.2) Aspartate Amino Transf (AST/SGOT) 25 U/L (5-40) Alanine Aminotransferase (ALT/SGPT) 21 U/L (3-33) Alkaline Phosphatase 145 U/L (35-104) H Total Protein 6.3 g/dL (6.6-8.7) L Albumin 3.5 g/dL (3.5-5.2) Globulin 2.8 g/dL Albumin/Globulin Ratio 1.2 (1.0-2.7) Current Medications Medications (Trade) Dose Ordered Sig/Hitesh Route PRN Reason Start Time Stop Time Status Last Admin Dose Admin Acetaminophen (Tylenol) 650 mg Q4H PRN RECTAL For Pain 10/27/16 14:45 11/26/16 14:44 Albuterol/ Ipratropium (DuoNeb 0.5-3(2.5)mg/3ml) 3 ml Q6HRT HHN 10/27/16 19:00 11/01/16 18:59 10/28/16 07:00 Artificial Tears (Akwa-Tears) 1 drop TID BOTH EYES 10/27/16 18:00 11/26/16 17:59 10/28/16 12:45 Citalopram Hydrobromide (celeXA) 10 mg DAILY ORAL 10/28/16 09:00 11/27/16 08:59 Donepezil HCl (Aricept) 10 mg DAILY ORAL 10/28/16 09:00 11/27/16 08:59 Enoxaparin Sodium (Lovenox) 30 mg DAILY SUBQ 10/28/16 09:00 11/27/16 08:59 Levothyroxine Sodium (Synthroid) 50 mcg ACBREAKFAST ORAL 10/28/16 06:30 11/27/16 06:29 10/28/16 06:04 Morphine Sulfate (Morphine Sulfate) 2 mg Q2H PRN IVP Moderate Breakthru Pain (5-7) 10/27/16 16:00 11/03/16 15:59 Morphine Sulfate (Morphine Sulfate) 4 mg Q2H PRN IVP Severe Breakthru Pain 10/27/16 14:45 11/03/16 14:44 10/28/16 06:27 Multivitamins (Multivitamins) 1 tab DAILY ORAL 10/28/16 09:00 11/27/16 08:59 Pantoprazole (Protonix) 40 mg DAILY ORAL 10/28/16 09:00 11/27/16 08:59 Polyethylene Glycol (Miralax) 17 gm DAILY ORAL 10/28/16 09:00 11/27/16 08:59 Potassium Chloride/Sodium Chloride (KCl/0.45% NS 1000ml) 1,005 ml @ 50 mls/hr Q20H6M IV 10/27/16 16:00 11/26/16 15:59 10/28/16 12:04 Quetiapine Fumarate 12.5 mg 12.5 mg BID ORAL 10/27/16 18:00 11/26/16 17:59 10/27/16 17:12 Ramelteon (Rozerem) 8 mg QHS ORAL 10/27/16 21:00 11/26/16 20:59 Salmeterol Xinafoate/ Fluticasone (Advair 250/50 Diskus) 1 puffs EVERY 12 HOURS INH 10/27/16 21:00 11/26/16 20:59 Vitamin D (Vitamin D) 2,000 intlu DAILY ORAL 10/28/16 09:00 11/27/16 08:59 Height (Feet): 5 Height (Inches): 0.00 Weight (Pounds): 140 General Appearance: no apparent distress, alert Head: normocephalic, atraumatic Eyes: bilateral anicteric ENT: normal voice Neck: full range of motion, no mass Respiratory: lungs clear, no rhonchi, no wheezing Cardiovascular: regular rate, rhythm Gastrointestinal: normal bowel sounds, non tender, soft, no mass, no organomegaly, non-distended Musculoskeletal: no calf tenderness Neurologic: no new focality SHANNON RO Oct 28, 2016 13:47
[2016-10-28] MEDS ORDERED: Tubing IV Secondary IV ONE (18:24)
[2016-10-28] MEDS ORDERED: NS 275ml ONE (18:24)
--- NOTE | 2016-10-28 18:33 | Cardiology Progress Note ---
Assessment/Plan Assessment/Plan femoral neck fracture advanced dementia hypothyroid d/w dr gil echo normal lv function no prior cardiac issue proceed with hip surgery as planned Subjective ROS Limited/Unobtainable: Yes Objective Last 24 Hour Vital Signs Date Time Temp Pulse Resp B/P Pulse Ox O2 Delivery O2 Flow Rate FiO2 10/28/16 15:48 97.9 85 20 115/69 95 Room Air 10/28/16 13:15 85 21 99 Room Air 21 10/28/16 13:05 87 20 Room Air 10/28/16 11:19 98.2 80 20 116/75 94 Room Air 10/28/16 08:33 97.5 82 20 114/71 94 Room Air 10/28/16 07:39 85 16 94 Room Air 10/28/16 07:37 21 10/28/16 07:37 93 Room Air 21 10/28/16 07:00 82 16 91 Room Air 10/28/16 04:35 97.8 74 19 106/65 96 Room Air 10/28/16 01:53 83 16 98 Nasal Cannula 2.0 28 10/28/16 01:38 32 10/28/16 01:38 84 18 98 Nasal Cannula 3.0 32 10/28/16 00:20 77 20 100/52 96 Room Air 10/28/16 00:13 97.6 80 21 160/77 96 Room Air 10/27/16 20:00 97.8 82 20 102/68 96 Room Air 10/27/16 19:17 84 18 98 Nasal Cannula 3.0 32 10/27/16 19:10 Nasal Cannula 3.0 32 10/27/16 19:10 97 Nasal Cannula 3.0 32 10/27/16 19:07 32 10/27/16 19:07 82 18 Nasal Cannula 3.0 32 10/27/16 19:06 82 18 97 Nasal Cannula 3.0 32 General Appearance: alert Neck: supple Cardiovascular: normal rate, regular rhythm Respiratory/Chest: lungs clear, normal breath sounds Abdomen: non tender, soft Extremities: no swelling Intake and Output 10/27/16 10/28/16 19:00 07:00 Intake Total 100 ml 600 ml Output Total 110 ml 400 ml Balance -10 ml 200 ml Intake Oral 0 ml IV Total 100 ml 600 ml Output Urine Total 110 ml 400 ml Laboratory Tests Test 10/27/16 22:00 10/28/16 05:55 Urine Color Yellow Urine Appearance Clear Urine pH 6.5 (4.5-8.0) Urine Specific [place] 1.010 (1.005-1.035) Urine Protein Negative (NEGATIVE) Urine Glucose (UA) Negative (NEGATIVE) Urine Ketones Negative (NEGATIVE) Urine Occult Blood Negative (NEGATIVE) Urine Nitrite Negative (NEGATIVE) Urine Bilirubin Negative (NEGATIVE) Urine Urobilinogen Normal MG/DL (0.0-1.0) Urine Leukocyte Esterase Negative (NEGATIVE) Urine RBC 0-2 /HPF (0 - 2) Urine WBC 0 /HPF (0 - 2) Urine Squamous Epithelial Cells Few /LPF (NONE/OCC) Urine Bacteria None /HPF (NONE) White Blood Count 6.7 K/UL (4.8-10.8) Red Blood Count 3.35 M/UL (4.20-5.40) L Hemoglobin 11.2 G/DL (12.0-16.0) L Hematocrit 35.3 % (37.0-47.0) L Mean Corpuscular Volume 105 FL (80-99) H Mean Corpuscular Hemoglobin 33.4 PG (27.0-31.0) H Mean Corpuscular Hemoglobin Concent 31.8 G/DL (32.0-36.0) L Red Cell Distribution Width 12.8 % (11.6-14.8) Platelet Count 266 K/UL (150-450) Mean Platelet Volume 5.8 FL (6.5-10.1) L Neutrophils (%) (Auto) % (45.0-75.0) Lymphocytes (%) (Auto) % (20.0-45.0) Monocytes (%) (Auto) % (1.0-10.0) Eosinophils (%) (Auto) % (0.0-3.0) Basophils (%) (Auto) % (0.0-2.0) Differential Total Cells Counted 100 Neutrophils % (Manual) 67 % (45-75) Lymphocytes % (Manual) 21 % (20-45) Monocytes % (Manual) 8 % (1-10) Eosinophils % (Manual) 4 % (0-3) H Basophils % (Manual) 0 % (0-2) Band Neutrophils 0 % (0-8) Platelet Estimate Adequate Platelet Morphology Normal Macrocytosis 1+ Sodium Level 136 mEQ/L (135-145) Potassium Level 4.5 mEQ/L (3.4-4.9) Chloride Level 99 mEQ/L (98-107) Carbon Dioxide Level 27 mEQ/L (20-30) Anion Gap 10 (5-15) Blood Urea Nitrogen 14 mg/dL (7-23) Creatinine 0.7 mg/dL (0.5-0.9) Estimat Glomerular Filtration Rate mL/min (>60) Glucose Level 107 mg/dL (74-106) H Calcium Level 8.9 mg/dL (8.6-10.2) Total Bilirubin 0.3 mg/dL (0.0-1.2) Aspartate Amino Transf (AST/SGOT) 25 U/L (5-40) Alanine Aminotransferase (ALT/SGPT) 21 U/L (3-33) Alkaline Phosphatase 145 U/L (35-104) H Total Protein 6.3 g/dL (6.6-8.7) L Albumin 3.5 g/dL (3.5-5.2) Globulin 2.8 g/dL Albumin/Globulin Ratio 1.2 (1.0-2.7) SRINI CARTY Oct 28, 2016 18:33
[2016-10-28] MEDS ORDERED: Lidocaine 1% MPF 10mg/ml 5ml ONE (19:00)
[2016-10-28] MEDS ORDERED: LR 1000ml ONE (19:00)
[2016-10-28] MEDS ORDERED: Propofol 10mg/ml 20ml IV ONE (19:00)
[2016-10-28] MEDS ORDERED: Midazolam 2mg/2ml Inj ONE (19:00)
[2016-10-28] MEDS ORDERED: Sterile Water Irrig 1000ml IRRIG ONE (19:00)
[2016-10-28] MEDS ORDERED: NS Irrig 1000ml ONE (19:00)
[2016-10-28] MEDS ORDERED: Morphine Sulfate PF 10 ML ONE (19:11)
[2016-10-28] MEDS ORDERED: Bupivacaine w/Epi 0.5% 30ml Vial INJ ONE (19:12)
[2016-10-28] MEDS ORDERED: Ketorolac 30mg Inj ONE (19:12)
[2016-10-28] MEDS ORDERED: Bacitracin 50000 Units Vial ONE ×2 (19:12→20:46)
[2016-10-28] MEDS ORDERED: Duramorph PF 10mg/10ml amp EPIDUR ONE (19:15)
[2016-10-28] MEDS ORDERED: Bupivacaine w/Epi 0.25% 30ml Vial INJ ONE (19:15)
--- NOTE | 2016-10-28 19:18 | Operative Note - PDOC ---
Operative Note Operative Note Pre-op Diagnosis: left femoral neck fracture Procedure: left hip hemiarthroplasty Post-op Diagnosis: same as pre-op Operative Findings: consistent w/pre-op dx studies Anesthesia: regional Specimen: yes Complications: none Condition: stable Estimated Blood Loss: minimal Implant(s) used?: Yes PRATEEK PADILLA Oct 28, 2016 19:18
--- NOTE | 2016-10-28 19:18 | Pre-Procedure Note/Attestation ---
Pre-Procedure Note/Attestation Complete Prior to Procedure Planned Procedure: left Procedure Narrative: hip hemiarthroplasty Indications for Procedure Pre-Operative Diagnosis: left femoral neck fracture Attestation I attest that I discussed the nature of the procedure; its benefits; risks and complications; and alternatives (and the risks and benefits of such alternatives ), prior to the procedure, with the patient (or the patient's legal manufacturing sales representative). I attest that, if there was a reasonable possibility of needing a blood transfusion, the patient (or the patient's legal manufacturing sales representative) was given the [facility] standardized written summary, pursuant to the Efrem Torrey Blood Safety Act ([place] Health and Safety Code # 1645, as amended). I attest that I re-evaluated the patient just prior to the surgery and that there has been no change in the patient's H&P, except as documented below: PRATEEK PADILLA Oct 28, 2016 19:18
[2016-10-28] MEDS ORDERED: Morphine Sulfate 4mg/ml Inj IVP PRN (19:30)
[2016-10-28] MEDS ORDERED: Milk of Magnesia 30ml Ud ORAL PRN (19:30)
[2016-10-28] MEDS ORDERED: Morphine Sulfate 2mg/ml Inj IVP PRN (19:30)
[2016-10-28] MEDS ORDERED: Norco 7.5mg/325mg tab ORAL PRN ×2 (19:30→20:00)
[2016-10-28] MEDS ORDERED: Norco 5mg/325mg tab ORAL PRN ×2 (19:30→20:00)
[2016-10-28] MEDS ORDERED: Metoclopramide 10mg/2ml Inj IVP PRN ×2 (19:30→20:00)
[2016-10-28] MEDS ORDERED: LR 1000ml 1,000 ML IVLG SCH (19:51)
[2016-10-28] MEDS ORDERED: LORazepam Inj 2mg/ml 1ml IV PRN (20:00)
[2016-10-28] MEDS ORDERED: Midazolam 2mg/2ml Inj IVP PRN (20:00)
[2016-10-28] MEDS ORDERED: Hydromorphone 0.5mg/0.5ml inj IVP PRN (20:00)
[2016-10-28] MEDS ORDERED: Oxycodone/Acetaminophen 5-325 ORAL PRN (20:00)
[2016-10-28] MEDS ORDERED: Meperidine 25mg/0.5ml Inj (FOR RIGORS ONLY) IV PRN (20:00)
[2016-10-28] MEDS ORDERED: DiphenhydrAMINE 50mg/ml Inj IVP PRN (20:00)
[2016-10-28] MEDS ORDERED: Atropine Inj 1mg/10ml Syr IV PRN (20:00)
[2016-10-28] MEDS ORDERED: Ketorolac 30mg Inj IV PRN (20:00)
[2016-10-28] MEDS ORDERED: Ketorolac 60mg Inj IV PRN (20:00)
[2016-10-28] MEDS ORDERED: fentaNYL 100 mcg/2 mL IV PRN (20:00)
[2016-10-28] MEDS ORDERED: Tranexamic Acid 1,000 MG in NS 65 ML IVPB ONE (20:00)
--- NOTE | 2016-10-28 20:09 | Anethesia Preoperative Eval ---
Anesthesia Pre-op PMH/ROS General Date of Evaluation: Oct 28, 2016 Time of Evaluation: 11:06 Anesthesiologist: Ange ASA Score: ASA 3 - Emergency Mallampati Score Class I : Soft palate, uvula, fauces, pillars visible Class II: Soft palate, uvula, fauces visible Class III: Soft palate, base of uvula visible Class IV: Only hard plate visible Mallampati Classification: Class II Surgeon: Freddie Diagnosis: L Hip Fx Surgical Procedure: L Hip Hemoarthroplasty Anesthesia History: none Family History: no anesthesia problems Allergies: Coded Allergies: NO KNOWN ALLERGIES (Unverified Allergy, Unknown, 09/09/16) Medications: see eMAR Past Medical History Cardiovascular: Reports: HTN Pulmonary: Reports: COPD, asthma Gastrointestinal/Genitourinary: Reports: GERD Neurologic/Psychiatric: Reports: dementia Endocrine: Reports: hypothyroidism Anesthesia Pre-op Phys. Exam Physician Exam Last Vital Signs Date Time Temp Pulse Resp B/P Pulse Ox O2 Delivery O2 Flow Rate FiO2 10/28/16 15:48 97.9 85 20 115/69 95 Room Air 10/28/16 13:15 21 10/28/16 01:53 2.0 Constitutional: NAD Neurologic: CN 2-12 intact Cardiovascular: RRR Respiratory: CTA Gastrointestinal: S/NT/ND Airway Exam Mallampati Score: Class II MO: full ROM: limited Teeth: missing Anesthesia Pre-op A/P Labs Hematology Test 10/28/16 05:55 White Blood Count 6.7 K/UL (4.8-10.8) Red Blood Count 3.35 M/UL (4.20-5.40) L Hemoglobin 11.2 G/DL (12.0-16.0) L Hematocrit 35.3 % (37.0-47.0) L Mean Corpuscular Volume 105 FL (80-99) H Mean Corpuscular Hemoglobin 33.4 PG (27.0-31.0) H Mean Corpuscular Hemoglobin Concent 31.8 G/DL (32.0-36.0) L Red Cell Distribution Width 12.8 % (11.6-14.8) Platelet Count 266 K/UL (150-450) Mean Platelet Volume 5.8 FL (6.5-10.1) L Neutrophils (%) (Auto) % (45.0-75.0) Lymphocytes (%) (Auto) % (20.0-45.0) Monocytes (%) (Auto) % (1.0-10.0) Eosinophils (%) (Auto) % (0.0-3.0) Basophils (%) (Auto) % (0.0-2.0) Differential Total Cells Counted 100 Neutrophils % (Manual) 67 % (45-75) Lymphocytes % (Manual) 21 % (20-45) Monocytes % (Manual) 8 % (1-10) Eosinophils % (Manual) 4 % (0-3) H Basophils % (Manual) 0 % (0-2) Band Neutrophils 0 % (0-8) Platelet Estimate Adequate Platelet Morphology Normal Macrocytosis 1+ Chemistry Test 10/28/16 05:55 Sodium Level 136 mEQ/L (135-145) Potassium Level 4.5 mEQ/L (3.4-4.9) Chloride Level 99 mEQ/L (98-107) Carbon Dioxide Level 27 mEQ/L (20-30) Anion Gap 10 (5-15) Blood Urea Nitrogen 14 mg/dL (7-23) Creatinine 0.7 mg/dL (0.5-0.9) Estimat Glomerular Filtration Rate mL/min (>60) Glucose Level 107 mg/dL (74-106) H Calcium Level 8.9 mg/dL (8.6-10.2) Total Bilirubin 0.3 mg/dL (0.0-1.2) Aspartate Amino Transf (AST/SGOT) 25 U/L (5-40) Alanine Aminotransferase (ALT/SGPT) 21 U/L (3-33) Alkaline Phosphatase 145 U/L (35-104) H Total Protein 6.3 g/dL (6.6-8.7) L Albumin 3.5 g/dL (3.5-5.2) Globulin 2.8 g/dL Albumin/Globulin Ratio 1.2 (1.0-2.7) Pre-Antibiotics Dru Grams Ancef IV Given Within 1 Hr of Incision: Yes Time Given: 19:21 Toro Cassidy MD Oct 28, 2016 20:09
--- NOTE | 2016-10-28 20:10 | Immediate Post-Op Evaluation ---
Immediate Post-Op Evalulation Immediate Post-Op Evalulation Procedure: L Hip Hemiarthroplasty Date of Evaluation: Oct 28, 2016 Time of Evaluation: 21:00 IV Fluids: 500 LR Blood Products: 0 Estimated Blood Loss: 75 Urinary Output: 0 Blood Pressure Systolic: 91 Blood Pressure Diastolic: 42 Pulse Rate: 79 Respiratory Rate: 16 O2 Sat by Pulse Oximetry: 100 Temperature (Fahrenheit): 98.1 Pain Score (1-10): 3 Nausea: No Vomiting: No Complications 0 Patient Status: none Hydration Status: adequate Dru Grams Ancef IV Given Within 1 Hr of Incision: Yes Time Given: 19:21 Toro Cassidy MD Oct 28, 2016 20:10
[2016-10-28] MEDS: Ramelteon 8mg tab (Approved for Delirium use only) ORAL SCH (21:00)
[2016-10-29] VITALS (9 sets, daily range): BP systolic 106–131; BP diastolic 47–80
[2016-10-29] MEDS: D5 1/2NS w/KCl 20mEq 1,000 ML IV SCH ×2 (00:17→11:53)
[2016-10-29] MEDS: DuoNeb 0.5-3(2.5)mg/3ml neb HHN SCH ×4 (01:49→19:19)
[2016-10-29] MEDS ORDERED: ceFAZolin sod 2 GM in D5W 110 ML IV SCH (03:30)
--- NOTE | 2016-10-29 05:30 | Consultation ---
DATE OF CONSULTATION: 10/27/2016 ORTHOPEDIC CONSULTATION CHIEF COMPLAINT: Left hip pain. HISTORY OF PRESENT ILLNESS: The patient is a pleasant 81-year-old female with unusual presenting complaints. She had some pain and routine imaging studies of the left hip showed femoral neck fracture. There is no history of trauma. She was told to present to the emergency room for further care and recommendation. Orthopedic consultation obtained for further care and recommendation. The patient has underlying dementia. She transfers to wheelchair and chair. PAST MEDICAL HISTORY: Reviewed in the chart. PAST SURGICAL HISTORY: Reviewed in the chart. MEDICATIONS: Reviewed in the chart. PHYSICAL EXAMINATION: EXTREMITIES: The patient has underlying dementia. She has pain with internal and external rotation of left leg. She has shortening. LABORATORY AND DIAGNOSTIC DATA: Imaging studies showed displaced left femoral neck fracture. ASSESSMENT: Left displaced femoral neck fracture. DISCUSSION: At this point, I am going to proceed with left hip hemiarthroplasty to better ambulate her to chair as well as assist in hygiene. At this point, we will proceed with surgery tomorrow if she is completely consenting for surgery and she is medically stable. Parminder Frazier M.D. DR: DAGO JOB#: [id number] CC: DILIP
[2016-10-29 06:19] LABS: BASOPHILS % (AUTO) 0.6 % (0.0-2.0); EOSINOPHILS % (AUTO) 0.1 % (0.0-3.0); LYMPHOCYTES % (AUTO) 10.9 % (20.0-45.0); MEAN CORPUSCULAR HEMOGLOBIN 33.9 PG (27.0-31.0); MEAN CORPUSCULAR HGB CONC 32.4 G/DL (32.0-36.0); MEAN CORPUSCULAR VOLUME 105 FL (80-99); MEAN PLATELET VOLUME 5.8 FL (6.5-10.1); MONOCYTES % (AUTO) 6.9 % (1.0-10.0); NEUTROPHILS % (AUTO) 81.6 % (45.0-75.0); PLATELET COUNT 294 K/UL (150-450); RED BLOOD COUNT 3.33 M/UL (4.20-5.40); RED CELL DISTRIBUTION WIDTH 12.3 % (11.6-14.8); WHITE BLOOD COUNT 12.2 K/UL (4.8-10.8)
[2016-10-29 06:47] LABS: ANION GAP 17 (5-15); CALCIUM 8.8 mg/dL (8.6-10.2); CARBON DIOXIDE 24 mEQ/L (20-30); CHLORIDE 100 mEQ/L (98-107); CREATININE 0.8 mg/dL (0.5-0.9); HEMOLYSIS 2; POTASSIUM 4.2 mEQ/L (3.4-4.9); SODIUM 141 mEQ/L (135-145)
--- NOTE | 2016-10-29 07:00 | Operative Note - Dictated ---
DATE OF OPERATION: 10/28/2016 PREOPERATIVE DIAGNOSIS: Left acute femoral neck fracture. POSTOPERATIVE DIAGNOSIS: Acute on chronic femoral neck fracture. PROCEDURES: Left hip hemiarthroplasty. SURGEON: Parminder Frazier M.D. ANESTHESIA: General. INDICATION FOR PROCEDURE: The patient is a pleasant female who was noted to have displaced femoral neck fracture, it was unclear if any event caused the injury. Given the discomfort and pain it was felt that she will benefit from left hip hemiarthroplasty. Risks, limitations, and complications of procedure were discussed in detail with the conservator. All questions were addressed. DESCRIPTION OF PROCEDURE: An informed consent was obtained. The patient was taken to the operating room and placed supine and attempted spinal anesthesia. This was unsuccessful. General anesthetic was then placed. The patient was then carefully placed in beach chair position. Left hip was prepped and draped in a sterile manner. Time-out was performed. Ancef was administered. A posterolateral skin incision was then made. Fascia lito was incised. There is significant tenderness tissue. The tissue planes were somewhat difficult to identify except for the top of the greater trochanter in lateral aspect of the femur. The hip was pretty tight consistent with some of her pre-injury contractures. At this point, the lateral aspect of the femur was then applied along the calcar. This was then extended proximally to the lip with acetabulum applied. Using careful dissection, a capsulectomy was performed to allow better access. A neck cut below the fracture site was performed. The femoral head was removed measuring 42 mm. A sequential broaching up to 7.9 approach was performed and head neck combo was selected. Hip was reduced. Stable flexed to 90 degrees, flexion and rotation to 30, extension was -20. At this point, it was felt that soft tissues were tied probably because she had acute on chronic femoral neck fracture. At this point, the final implants were impacted into place. The posterior capsule was approximated with #2 FiberWire. Fascia lito was reapproximated with #1 Vicryl suture. Skin was approximated with 2-0 Vicryl suture, and 3-0 Monocryl sutures. Steri-Strips and a sterile dressing were applied. The patient was awoken and taken to recovery room with stable vital signs. ESTIMATED BLOOD LOSS: 50 mL. COMPLICATIONS: None. SPECIMEN: Femoral head. IMPLANTS: Includes a consensus 9 femoral component with a free to bipolar head 0 neck. Parminder Frazier M.D. DR: DIAMOND JOB#: [id number] CC: DILIP
--- NOTE | 2016-10-29 08:23 | 48 Hour Post Anesthesia Eval ---
Post Anesthesia Evaluation Procedure: L Hip Hemiarthroplasty Date of Evaluation: Oct 29, 2016 Time of Evaluation: 06:27 Blood Pressure Systolic: 129 0: 80 Pulse Rate: 91 Respiratory Rate: 19 Temperature (Fahrenheit): 97.9 O2 Sat by Pulse Oximetry: 96 Airway: patent Nausea: No Vomiting: No Pain Intensity: 1 Hydration Status: adequate Cardiopulmonary Status: Stable Mental Status/LOC: patient returned to baseline Follow-up Care/Observations: 0 Post-Anesthesia Complications: 0 Follow-up care needed: N/A Toro Cassidy MD Oct 29, 2016 08:23
[2016-10-29] MEDS: Miralax 17gm pkt ORAL SCH (09:18)
[2016-10-29] MEDS: Vitamin D 1000 IU Tab ORAL SCH (09:18)
[2016-10-29] MEDS: Donepezil 10mg tab ORAL SCH (09:18)
[2016-10-29] MEDS: Citalopram Hydrobromide 10 MG TAB ORAL SCH (09:18)
[2016-10-29] MEDS: Enoxaparin 30mg Inj SUBQ SCH (09:20)
[2016-10-29] MEDS: celeBREX 200mg Cap **SURGERY PATIENTS ONLY ORAL SCH (09:21)
[2016-10-29] MEDS: Advair 250/50 Inhaler - 14 dose INH SCH ×2 (09:26→21:00)
[2016-10-29] MEDS: Docusate 100mg cap ORAL SCH ×3 (09:28→17:19)
[2016-10-29] MEDS: Artificial Tears 1.4% Op Soln BOTH EYES SCH ×3 (09:28→17:18)
[2016-10-29] MEDS ORDERED: ceFAZolin 2gm/50ml Premix 50 ML IV SCH (12:00)
[2016-10-29] MEDS ORDERED: Norco 5mg/325mg tab ORAL PRN (16:00)
[2016-10-29] MEDS ORDERED: Norco 10mg/325mg tab ORAL PRN (16:00)
--- NOTE | 2016-10-29 16:18 | Geriatric Progress Note ---
Assessment/Plan Problems: (1) Hypothyroid (2) Hyperlipemia (3) Major depression, chronic (4) Hip fracture, left (5) Dementia with behavioral disturbance Assessment/Plan Patient doing well post op. Will need stabilization on pain regimen, use of abduction pillow and Lovenox for a period postop. Call placed to Dr. Freddie gallagher details of postop care. Discussed in detail with Quin Lea, consensus that patient should be stabilized at SNF for ~ 1wk, then d/c back to [facility]. Adjust analgesic regimen. Recheck labs. Discussed with staff to initiate d/c planning. Discussed with: conservator, hospital staff Subjective Interval Events Patient slightly drowsy, but smiles with inarticulate vocalization on stimulation. Some occasional movements that may indicate an element of discomfort, but generally appears comfortable. Ate 100%. Appears to have tolerated surgery quite well. Subjective No meaningful responses elicited. Geriatric Geriatric Last 24 Hour Vital Signs Date Time Temp Pulse Resp B/P Pulse Ox O2 Delivery O2 Flow Rate FiO2 10/29/16 13:24 89 18 96 Nasal Cannula 2.0 28 10/29/16 13:13 28 10/29/16 13:13 89 18 96 Nasal Cannula 2.0 28 10/29/16 12:00 98.1 101 20 129/76 93 Nasal Cannula 2.0 10/29/16 08:23 91 19 96 10/29/16 08:00 97.3 113 19 125/72 95 Nasal Cannula 2.0 10/29/16 07:17 91 20 96 Nasal Cannula 2.0 10/29/16 07:09 96 Nasal Cannula 2.0 10/29/16 07:09 28 10/29/16 07:09 Nasal Cannula 2.0 28 10/29/16 07:09 92 20 96 Nasal Cannula 2.0 28 10/29/16 04:00 97.9 86 18 129/80 91 Nasal Cannula 3.0 10/29/16 03:00 82 18 127/63 94 Nasal Cannula 3.0 10/29/16 02:02 92 18 96 Nasal Cannula 21 10/29/16 02:00 86 18 121/59 95 Nasal Cannula 3.0 10/29/16 01:51 94 18 94 Nasal Cannula 21 10/29/16 01:51 21 10/29/16 01:00 89 16 124/61 95 Nasal Cannula 3.0 10/29/16 00:00 97.0 91 18 131/61 90 Nasal Cannula 3.0 10/28/16 23:30 79 18 103/67 95 Nasal Cannula 3.0 10/28/16 23:00 75 18 99/62 95 Nasal Cannula 3.0 10/28/16 22:30 87 18 110/61 94 Nasal Cannula 3.0 10/28/16 22:15 97.7 83 18 105/58 91 Nasal Cannula 3.0 10/28/16 21:51 97.8 80 15 109/50 100 Nasal Cannula 3.0 10/28/16 21:40 77 14 108/48 100 Nasal Cannula 3.0 10/28/16 21:35 78 17 109/49 98 Nasal Cannula 3.0 10/28/16 21:25 79 16 117/49 98 Nasal Cannula 3.0 10/28/16 21:14 76 18 100/43 100 Simple Mask 8.0 10/28/16 21:00 77 18 97/41 100 Simple Mask 8.0 10/28/16 20:54 79 18 87/36 100 Simple Mask 8.0 10/28/16 20:53 79 16 100 10/28/16 20:49 98.2 79 18 84/46 100 Simple Mask 8.0 10/28/16 20:15 Room Air 10/28/16 20:14 Room Air 10/28/16 20:14 Room Air 10/28/16 20:14 Room Air Intake and Output 10/28/16 10/29/16 19:00 07:00 Intake Total 550 ml 1191.25 ml Output Total 1000 ml 500 ml Balance -450 ml 691.25 ml IV Total 550 ml 1191.25 ml Output Urine Total 1000 ml 425 ml Estimated Blood Loss 75 ml Laboratory Tests Test 10/29/16 05:20 White Blood Count 12.2 K/UL (4.8-10.8) #H Red Blood Count 3.33 M/UL (4.20-5.40) L Hemoglobin 11.3 G/DL (12.0-16.0) L Hematocrit 34.8 % (37.0-47.0) L Mean Corpuscular Volume 105 FL (80-99) H Mean Corpuscular Hemoglobin 33.9 PG (27.0-31.0) H Mean Corpuscular Hemoglobin Concent 32.4 G/DL (32.0-36.0) Red Cell Distribution Width 12.3 % (11.6-14.8) Platelet Count 294 K/UL (150-450) Mean Platelet Volume 5.8 FL (6.5-10.1) L Neutrophils (%) (Auto) 81.6 % (45.0-75.0) H Lymphocytes (%) (Auto) 10.9 % (20.0-45.0) L Monocytes (%) (Auto) 6.9 % (1.0-10.0) Eosinophils (%) (Auto) 0.1 % (0.0-3.0) Basophils (%) (Auto) 0.6 % (0.0-2.0) Sodium Level 141 mEQ/L (135-145) Potassium Level 4.2 mEQ/L (3.4-4.9) Chloride Level 100 mEQ/L (98-107) Carbon Dioxide Level 24 mEQ/L (20-30) Anion Gap 17 (5-15) H Blood Urea Nitrogen 16 mg/dL (7-23) Creatinine 0.8 mg/dL (0.5-0.9) Estimat Glomerular Filtration Rate mL/min (>60) Glucose Level 111 mg/dL (74-106) H Calcium Level 8.8 mg/dL (8.6-10.2) Current Medications Medications (Trade) Dose Ordered Sig/Hitesh Route PRN Reason Start Time Stop Time Status Last Admin Dose Admin Acetaminophen (Tylenol) 650 mg Q4H PRN RECTAL For Pain 10/27/16 14:45 11/26/16 14:44 Acetaminophen/ Hydrocodone Bitart ([place] 5/325) 2 tab Q6H PRN ORAL Severe Pain (Pain Scale 7-10) 10/28/16 19:30 11/04/16 19:29 10/29/16 15:39 Acetaminophen/ Hydrocodone Bitart ([place] 7.5/325) 1 ea Q4H PRN ORAL Moderate Pain (Pain Scale 4-6) 10/28/16 19:30 11/04/16 19:29 Albuterol/ Ipratropium (DuoNeb 0.5-3(2.5)mg/3ml) 3 ml Q6HRT HHN 10/27/16 19:00 11/01/16 18:59 10/29/16 13:13 Artificial Tears (Akwa-Tears) 1 drop TID BOTH EYES 10/27/16 18:00 11/26/16 17:59 10/29/16 12:34 Celecoxib (CeleBREX) 200 mg DAILY ORAL 10/29/16 09:00 11/28/16 08:59 10/29/16 09:21 Citalopram Hydrobromide (celeXA) 10 mg DAILY ORAL 10/28/16 09:00 11/27/16 08:59 10/29/16 09:18 Docusate Sodium (Colace) 100 mg THREE TIMES A DAY ORAL 10/29/16 09:00 11/28/16 08:59 10/29/16 12:34 Donepezil HCl (Aricept) 10 mg DAILY ORAL 10/28/16 09:00 11/27/16 08:59 10/29/16 09:18 Enoxaparin Sodium (Lovenox) 30 mg DAILY SUBQ 10/28/16 09:00 11/27/16 08:59 10/29/16 09:20 Levothyroxine Sodium (Synthroid) 50 mcg ACBREAKFAST ORAL 10/28/16 06:30 11/27/16 06:29 10/29/16 07:28 Magnesium Hydroxide (Mom) 30 ml DAILYPRN PRN ORAL Constipation 10/28/16 19:30 11/27/16 19:29 Metoclopramide HCl (Reglan) 5 mg Q6H PRN IVP Nausea & Vomiting 10/28/16 19:30 11/27/16 19:29 Morphine Sulfate (Morphine Sulfate) 2 mg Q3H PRN IVP Moderate Pain (Pain Scale 4-6) 10/28/16 19:30 11/04/16 19:29 Morphine Sulfate (Morphine Sulfate) 4 mg Q3H PRN IVP Severe Pain (Pain Scale 7-10) 10/28/16 19:30 11/04/16 19:29 Multivitamins (Multivitamins) 1 tab DAILY ORAL 10/28/16 09:00 11/27/16 08:59 10/29/16 09:18 Pantoprazole (Protonix) 40 mg DAILY ORAL 10/28/16 09:00 11/27/16 08:59 10/29/16 09:18 Polyethylene Glycol (Miralax) 17 gm DAILY ORAL 10/28/16 09:00 11/27/16 08:59 10/29/16 09:18 Quetiapine Fumarate (SEROquel) 12.5 mg BID ORAL 10/27/16 18:00 11/26/16 17:59 10/29/16 09:18 Ramelteon (Rozerem) 8 mg QHS ORAL 10/27/16 21:00 11/26/16 20:59 Salmeterol Xinafoate/ Fluticasone (Advair 250/50 Diskus) 1 puffs EVERY 12 HOURS INH 10/27/16 21:00 11/26/16 20:59 Vitamin D (Vitamin D) 2,000 intlu DAILY ORAL 10/28/16 09:00 11/27/16 08:59 10/29/16 09:18 Height (Feet): 5 Height (Inches): 0.00 Weight (Pounds): 140 General Appearance: non-toxic, lethargic - slightly Head: normocephalic, atraumatic Eyes: bilateral anicteric ENT: normal voice Neck: full range of motion, no mass Respiratory: lungs clear Cardiovascular: regular rate, rhythm Gastrointestinal: normal bowel sounds, non tender, soft, no mass, no organomegaly, non-distended Musculoskeletal: no calf tenderness SHANNON RO Oct 29, 2016 16:18
[2016-10-29] MEDS: Ramelteon 8mg tab (Approved for Delirium use only) ORAL SCH (20:52)
[2016-10-30] VITALS (7 sets, daily range): BP systolic 103–128; BP diastolic 39–85
[2016-10-30] MEDS: DuoNeb 0.5-3(2.5)mg/3ml neb HHN SCH ×4 (01:11→19:05)
[2016-10-30 07:26] LABS: MEAN CORPUSCULAR HEMOGLOBIN 34.2 PG (27.0-31.0); MEAN CORPUSCULAR HGB CONC 33.1 G/DL (32.0-36.0); MEAN CORPUSCULAR VOLUME 103 FL (80-99); MEAN PLATELET VOLUME 5.7 FL (6.5-10.1); PLATELET COUNT 286 K/UL (150-450); RED BLOOD COUNT 2.99 M/UL (4.20-5.40); RED CELL DISTRIBUTION WIDTH 12.5 % (11.6-14.8); WHITE BLOOD COUNT 12.8 K/UL (4.8-10.8)
[2016-10-30] MEDS: Artificial Tears 1.4% Op Soln BOTH EYES SCH ×3 (09:15→17:56)
[2016-10-30] MEDS: Vitamin D 1000 IU Tab ORAL SCH (09:16)
[2016-10-30] MEDS: Citalopram Hydrobromide 10 MG TAB ORAL SCH (09:16)
[2016-10-30] MEDS: Docusate 100mg cap ORAL SCH ×3 (09:16→17:57)
[2016-10-30] MEDS: celeBREX 200mg Cap **SURGERY PATIENTS ONLY ORAL SCH (09:16)
[2016-10-30] MEDS: Miralax 17gm pkt ORAL SCH (09:16)
[2016-10-30] MEDS: Donepezil 10mg tab ORAL SCH (09:16)
[2016-10-30] MEDS: Advair 250/50 Inhaler - 14 dose INH SCH ×2 (09:22→19:05)
[2016-10-30] MEDS: Enoxaparin 30mg Inj SUBQ SCH (09:25)
--- NOTE | 2016-10-30 10:09 | Cardiology Progress Note ---
Assessment/Plan Assessment/Plan femoral neck fracture toerateted hemiarthoplasty advanced dementia hypothyroid echo normal lv function no prior cardiac issues tolerated hip surgery as planned bp at time borderline hgb is fine Subjective ROS Limited/Unobtainable: Yes Objective Last 24 Hour Vital Signs Date Time Temp Pulse Resp B/P Pulse Ox O2 Delivery O2 Flow Rate FiO2 10/30/16 08:17 97.0 94 21 103/66 100 Simple Mask 10.0 10/30/16 07:43 92 18 100 Nasal Cannula 2.0 10/30/16 07:33 96 18 97 Nasal Cannula 2.0 10/30/16 07:32 96 Nasal Cannula 2.0 10/30/16 07:32 Nasal Cannula 2.0 10/30/16 04:00 98.1 106 20 126/64 96 Nasal Cannula 2.0 10/30/16 01:18 88 16 99 Nasal Cannula 2.0 28 10/30/16 01:10 85 16 96 Nasal Cannula 2.0 28 10/30/16 01:10 28 10/30/16 00:00 98.4 110 21 128/57 96 Nasal Cannula 2.0 10/29/16 20:00 98.1 100 20 106/47 Room Air 10/29/16 19:27 93 18 98 Nasal Cannula 2.0 28 10/29/16 19:19 95 Nasal Cannula 2.0 10/29/16 19:19 28 10/29/16 19:19 92 18 95 Nasal Cannula 2.0 10/29/16 19:19 Nasal Cannula 2.0 28 10/29/16 16:00 98.1 105 18 115/65 95 Nasal Cannula 2.0 10/29/16 13:24 89 18 96 Nasal Cannula 2.0 10/29/16 13:13 28 10/29/16 13:13 89 18 96 Nasal Cannula 2.0 10/29/16 12:00 98.1 101 20 129/76 93 Nasal Cannula 2.0 General Appearance: alert Cardiovascular: normal rate, regular rhythm Respiratory/Chest: lungs clear Abdomen: normal bowel sounds, non tender, soft Extremities: no swelling Intake and Output 10/29/16 10/30/16 19:00 07:00 Intake Total 420 ml 240 ml Balance 420 ml 240 ml Intake Oral 420 ml 240 ml # Voids 2 Laboratory Tests Test 10/30/16 05:35 White Blood Count 12.8 K/UL (4.8-10.8) H Red Blood Count 2.99 M/UL (4.20-5.40) L Hemoglobin 10.2 G/DL (12.0-16.0) L Hematocrit 30.9 % (37.0-47.0) L Mean Corpuscular Volume 103 FL (80-99) H Mean Corpuscular Hemoglobin 34.2 PG (27.0-31.0) H Mean Corpuscular Hemoglobin Concent 33.1 G/DL (32.0-36.0) Red Cell Distribution Width 12.5 % (11.6-14.8) Platelet Count 286 K/UL (150-450) Mean Platelet Volume 5.7 FL (6.5-10.1) L Neutrophils (%) (Auto) % (45.0-75.0) Lymphocytes (%) (Auto) % (20.0-45.0) Monocytes (%) (Auto) % (1.0-10.0) Eosinophils (%) (Auto) % (0.0-3.0) Basophils (%) (Auto) % (0.0-2.0) Microbiology Date/Time Source Procedure Growth Status 10/27/16 14:30 Nasal Nares MRSA Culture - Final NO METHICILLIN RESISTANT STAPH AUREUS... Complete 10/27/16 22:00 Indwelling Cath Urine Culture - Final Escherichia Coli Complete 10/27/16 14:30 Rectal Mucosa VRE Culture - Final Enterococcus Faecium - Vre Complete SRINI CARTY Oct 30, 2016 10:09
--- NOTE | 2016-10-30 11:36 | Diagnostic Imaging Report ---
Indication: Postoperative left hip arthroplasty/pain Technique: XRAY PELVIS 1 VIEW Comparison: 10/27/16 Findings: Patient is status post left hip hemiarthroplasty. Operative soft tissue changes are present. There is bilateral periosteal thickening. Osteopenia is noted. Atherosclerotic changes are seen. Impression: Status post left hip arthroplasty.
--- NOTE | 2016-10-30 13:59 | Geriatric Progress Note ---
Assessment/Plan Problems: (1) Hypothyroid (2) Hyperlipemia (3) Major depression, chronic (4) Hip fracture, left (5) Dementia with behavioral disturbance (6) Leukocytosis Assessment/Plan Postop course appears stable. Eating well. Has residual leukocytosis, ? demargination due to surgery. Recheck labs. Appears sufficiently stable for d/c to SNF. Dictated #[id number] Discussed with: hospital staff Subjective Interval Events Patient minimally lethargic, but arouses easily. Reportedly eating well, no prn pain med required so far. No apparent distress. Subjective No meaningful responses elicited. Geriatric Geriatric Last 24 Hour Vital Signs Date Time Temp Pulse Resp B/P Pulse Ox O2 Delivery O2 Flow Rate FiO2 10/30/16 13:48 89 18 100 Nasal Cannula 2.0 10/30/16 13:37 89 18 96 Nasal Cannula 2.0 10/30/16 12:11 97.0 95 19 106/76 97 Nasal Cannula 2.0 10/30/16 08:17 97.0 94 21 103/66 100 Simple Mask 10.0 10/30/16 07:43 92 18 100 Nasal Cannula 2.0 10/30/16 07:33 96 18 97 Nasal Cannula 2.0 10/30/16 07:32 96 Nasal Cannula 2.0 10/30/16 07:32 Nasal Cannula 2.0 10/30/16 04:00 98.1 106 20 126/64 96 Nasal Cannula 2.0 10/30/16 01:18 88 16 99 Nasal Cannula 2.0 10/30/16 01:10 85 16 96 Nasal Cannula 2.0 10/30/16 01:10 28 10/30/16 00:00 98.4 110 21 128/57 96 Nasal Cannula 2.0 10/29/16 20:00 98.1 100 20 106/47 Room Air 10/29/16 19:27 93 18 98 Nasal Cannula 2.0 10/29/16 19:19 95 Nasal Cannula 2.0 10/29/16 19:19 28 10/29/16 19:19 92 18 95 Nasal Cannula 2.0 10/29/16 19:19 Nasal Cannula 2.0 28 10/29/16 16:00 98.1 105 18 115/65 95 Nasal Cannula 2.0 Intake and Output 10/29/16 10/30/16 19:00 07:00 Intake Total 420 ml 240 ml Balance 420 ml 240 ml Intake Oral 420 ml 240 ml # Voids 2 Laboratory Tests Test 10/30/16 05:35 White Blood Count 12.8 K/UL (4.8-10.8) H Red Blood Count 2.99 M/UL (4.20-5.40) L Hemoglobin 10.2 G/DL (12.0-16.0) L Hematocrit 30.9 % (37.0-47.0) L Mean Corpuscular Volume 103 FL (80-99) H Mean Corpuscular Hemoglobin 34.2 PG (27.0-31.0) H Mean Corpuscular Hemoglobin Concent 33.1 G/DL (32.0-36.0) Red Cell Distribution Width 12.5 % (11.6-14.8) Platelet Count 286 K/UL (150-450) Mean Platelet Volume 5.7 FL (6.5-10.1) L Neutrophils (%) (Auto) % (45.0-75.0) Lymphocytes (%) (Auto) % (20.0-45.0) Monocytes (%) (Auto) % (1.0-10.0) Eosinophils (%) (Auto) % (0.0-3.0) Basophils (%) (Auto) % (0.0-2.0) Current Medications Medications (Trade) Dose Ordered Sig/Hitesh Route PRN Reason Start Time Stop Time Status Last Admin Dose Admin Acetaminophen (Tylenol) 650 mg Q4H PRN ORAL Mild Pain/Temp > 100.5 10/29/16 16:00 11/28/16 15:59 Acetaminophen/ Hydrocodone Bitart ([place] 10/325) 1 ea Q4H PRN ORAL Severe Pain (Pain Scale 7-10) 10/29/16 16:00 11/05/16 15:59 Acetaminophen/ Hydrocodone Bitart ([place] 5/325) 1 tab Q4H PRN ORAL Moderate Pain (Pain Scale 4-6) 10/29/16 16:00 11/05/16 15:59 Albuterol/ Ipratropium (DuoNeb 0.5-3(2.5)mg/3ml) 3 ml Q6HRT HHN 10/27/16 19:00 11/01/16 18:59 10/30/16 13:43 Artificial Tears ([place]wa-Tears) 1 drop TID BOTH EYES 10/27/16 18:00 11/26/16 17:59 10/30/16 13:13 Celecoxib (CeleBREX) 200 mg DAILY ORAL 10/29/16 09:00 11/28/16 08:59 10/30/16 09:16 Citalopram Hydrobromide (celeXA) 10 mg DAILY ORAL 10/28/16 09:00 11/27/16 08:59 10/30/16 09:16 Docusate Sodium (Colace) 100 mg THREE TIMES A DAY ORAL 10/29/16 09:00 11/28/16 08:59 10/30/16 13:13 Donepezil HCl (Aricept) 10 mg DAILY ORAL 10/28/16 09:00 11/27/16 08:59 10/30/16 09:16 Enoxaparin Sodium (Lovenox) 30 mg DAILY SUBQ 10/28/16 09:00 11/27/16 08:59 10/30/16 09:25 Levothyroxine Sodium (Synthroid) 50 mcg ACBREAKFAST ORAL 10/28/16 06:30 11/27/16 06:29 10/30/16 06:34 Magnesium Hydroxide (Mom) 30 ml DAILYPRN PRN ORAL Constipation 10/28/16 19:30 11/27/16 19:29 Metoclopramide HCl (Reglan) 5 mg Q6H PRN IVP Nausea & Vomiting 10/28/16 19:30 11/27/16 19:29 Multivitamins (Multivitamins) 1 tab DAILY ORAL 10/28/16 09:00 11/27/16 08:59 10/30/16 09:16 Pantoprazole (Protonix) 40 mg DAILY ORAL 10/28/16 09:00 11/27/16 08:59 10/30/16 09:16 Polyethylene Glycol (Miralax) 17 gm DAILY ORAL 10/28/16 09:00 11/27/16 08:59 10/30/16 09:16 Quetiapine Fumarate (SEROquel) 12.5 mg BID ORAL 10/27/16 18:00 11/26/16 17:59 10/30/16 09:16 Ramelteon (Rozerem) 8 mg QHS ORAL 10/27/16 21:00 8/11/17 20:59 10/29/16 20:52 Salmeterol Xinafoate/ Fluticasone (Advair 250/50 Diskus) 1 puffs EVERY 12 HOURS INH 10/27/16 21:00 11/26/16 20:59 Vitamin D (Vitamin D) 2,000 intlu DAILY ORAL 10/28/16 09:00 11/27/16 08:59 10/30/16 09:16 Height (Feet): 5 Height (Inches): 0.00 Weight (Pounds): 140 General Appearance: no apparent distress, lethargic - slightly Head: normocephalic, atraumatic Eyes: bilateral anicteric ENT: normal voice Neck: full range of motion, no mass Respiratory: lungs clear Cardiovascular: irregularly irregular Gastrointestinal: normal bowel sounds, non tender, soft, no mass, no organomegaly, non-distended Musculoskeletal: no calf tenderness Edema: no edema noted Generalized Neurologic: no new focality SHANNON RO Oct 30, 2016 13:59
[2016-10-30] MEDS ORDERED: PROTONIX40 MG ORAL (14:11)
[2016-10-30] MEDS ORDERED: MULTIVITAMINS1 EAC2 ORAL (14:11)
[2016-10-30] MEDS ORDERED: SEROQUEL25 MG ORAL (14:11)
[2016-10-30] MEDS ORDERED: DUONEB 0.5-3(2.53 ML HHN (14:11)
[2016-10-30] MEDS ORDERED: CELEBREX200 MG ORAL (14:11)
[2016-10-30] MEDS ORDERED: MOM30 ML ORAL (14:11)
[2016-10-30] MEDS ORDERED: SYNTHROID50 MCG ORAL (14:11)
[2016-10-30] MEDS ORDERED: ADVAIR 250/501 PUFFS INH (14:11)
[2016-10-30] MEDS ORDERED: DONEPEZIL HCL10 MG ORAL (14:11)
[2016-10-30] MEDS ORDERED: ROZEREM8 MG ORAL (14:11)
[2016-10-30] MEDS ORDERED: MIRALAX17 G2 ORAL (14:11)
[2016-10-30] MEDS ORDERED: CELEXA20 MG ORAL (14:11)
[2016-10-30] MEDS ORDERED: LOVENOX10 MG SUBQ (14:11)
[2016-10-30] MEDS ORDERED: NORCO 5-325 TA1 EACH ORAL (14:11)
[2016-10-30] MEDS ORDERED: ARTIFICIAL TEAR15 ML BOTH EYES (14:11)
[2016-10-30] MEDS ORDERED: ACETAMINOPHEN325 M1 ORAL (14:11)
[2016-10-30] MEDS ORDERED: VITAMIN D1000 UNI1 ORAL (14:11)
[2016-10-30] MEDS ORDERED: CRANBERRY400 MG PO (14:19)
[2016-10-30] MEDS: Ramelteon 8mg tab (Approved for Delirium use only) ORAL SCH (20:27)
[2016-10-31] MEDS: DuoNeb 0.5-3(2.5)mg/3ml neb HHN SCH ×5 (01:09→23:55)
--- NOTE | 2016-10-31 01:30 | Discharge Summary ---
DATE OF ADMISSION: 10/27/2016 DATE OF DISCHARGE: 11/01/2016 DISCHARGE DIAGNOSES: 1. Status post left intertrochanteric hip fracture status post hemiarthroplasty. 2. Advanced dementia with behavioral changes including agitation and paranoia, well controlled on low dose of antipsychotic therapy and antidepressant. 3. Major depressive disorder. 4. Chronic obstructive lung disease with bronchospasm. 5. Prior history of diabetes, not currently requiring medication treatment. 6. Hypothyroidism. 7. Hyperlipidemia. 8. History of peripheral edema. 9. Degenerative joint disease. 10. History of atrial fibrillation. 11. Recurrent dysphagia with episodic postprandial coughing resulting in use of a pureed diet. 12. History of right hip and gluteal cellulitis with deep necrosis, status post debridement healed. 13. History of prior right arm fracture. 14. Status post cataract surgery. 15. Gait disorder with immobility and limited transfer ability. 16. Episodic urinary tract infections. HISTORY OF PRESENT ILLNESS: The patient is an 81-year-old woman, who is limited to max assisted transfers in terms of mobility. She also has advanced dementia. Apparently sometime as far back as two weeks ago, the patient may have had an undetected insufficiency or incidental trauma fracture of the right hip, which became displaced sometime over the last weekend and became definitively symptomatic. Because of these changes, the patient was x-rayed and noted to have an intertrochanteric fracture and she was subsequently brought to the [facility] for further evaluation and treatment. Details of the history and physical examination are per the dictation of 10/27/2016. HOSPITAL COURSE: After an extensive discussion with the patient's caregivers at her [facility] as well as her technical healthcare consultant for her conservator, Quin Lea, the patient was felt to be best served with surgery since she would otherwise be quite immobile and might have difficulty even sitting in her normal wheelchair. The patient obviously had some increased element of perioperative risk for delirium in a medical complications because of her underlying medical diagnoses. It was felt that the overall risks and benefits favor proceeding with the surgery. The patient was seen in Orthopedic consultation by Dr. Parminder Frazier and in Cardiology consultation by Dr. Juan Carlos Zavala. It was felt that the patient was likely optimized with no evidence of unstable cardiac, pulmonary, or neurologic disease, which might increase the perioperative risk at this time. Dr. Zavala pointed out that the patient's inability to verbalize coherently and her limited mobility, made the possibility of ischemic heart disease difficult to ascertain. However after discussion, it was also felt that an ischemic workup was not likely to be beneficial since the patient really is not a good candidate for invasive therapy for coronary disease. The hip surgery looks primarily palliative in terms of minimizing the patient's pain and maximizing her mobility. Therefore after further discussion with Quin Lea, the surgery proceeded on 10/28/2016 and postoperatively, the patient has done relatively well with good return to p.o. intake and no immediate complications. Because the patient may have difficulties with pain control initially and because she is relatively immobile initially, the plan was to have the patient discharged to half-way facility for only approximately a week since it is doubtful that she will progress very well given her baseline status. Once her analgesia is fairly stable and she otherwise appears to be manageable, she will be discharged back to her [facility] for further therapy. The patient's discharge was delayed due to lack of vacancy at the SNF. Her later course was complicated by constipation requiring bowel therapy. DISCHARGE MEDICATIONS: At the time of discharge, the patient's medications include Tylenol 650 mg q.4 hours p.r.n. mild pain, Celebrex 200 mg daily for 15 additional days, vitamin D3 2000 units daily, Celexa 10 mg daily, Cranberry 400 mg daily, Artificial Tears 1 drop both eyes t.i.d., donepezil 10 mg daily, Lovenox 30 mg subcutaneous daily for additional 15 days, Advair 250/50 Diskus 1 puff q.12 hours, [place] 5/325 mg one tablet q.4 hours p.r.n. [id number] pain, DuoNeb unit dose q.6 hours, levothyroxine 50 mcg daily, milk of magnesia 30 mL daily p.r.n., multivitamins daily, pantoprazole 40 mg daily, MiraLax 17 g daily, Seroquel 12.5 mg b.i.d., Rozerem 8 mg at bedtime. FOLLOWUP: For additional seven days, the patient will be followed up at the half-way facility and subsequently discharged to the [facility] as described above. Jamin Cameron, M.D. DR: BINTA JOB#: [id number] CC: [id number]
[2016-10-31 03:35] VITALS: BP 113/66
[2016-10-31 07:37] LABS: BASOPHILS % (AUTO) 0.5 % (0.0-2.0); EOSINOPHILS % (AUTO) 1.2 % (0.0-3.0); LYMPHOCYTES % (AUTO) 10.7 % (20.0-45.0); MEAN CORPUSCULAR HEMOGLOBIN 32.8 PG (27.0-31.0); MEAN CORPUSCULAR HGB CONC 31.7 G/DL (32.0-36.0); MEAN CORPUSCULAR VOLUME 104 FL (80-99); MEAN PLATELET VOLUME 5.4 FL (6.5-10.1); MONOCYTES % (AUTO) 6.2 % (1.0-10.0); NEUTROPHILS % (AUTO) 81.4 % (45.0-75.0); PLATELET COUNT 292 K/UL (150-450); RED BLOOD COUNT 3.07 M/UL (4.20-5.40); RED CELL DISTRIBUTION WIDTH 12.4 % (11.6-14.8); WHITE BLOOD COUNT 9.7 K/UL (4.8-10.8)
[2016-10-31 08:23] VITALS: BP 115/45
[2016-10-31] MEDS: Donepezil 10mg tab ORAL SCH (09:31)
[2016-10-31] MEDS: Citalopram Hydrobromide 10 MG TAB ORAL SCH (09:32)
[2016-10-31] MEDS: Docusate 100mg cap ORAL SCH ×3 (09:32→18:23)
[2016-10-31] MEDS: celeBREX 200mg Cap **SURGERY PATIENTS ONLY ORAL SCH (09:32)
[2016-10-31] MEDS: Vitamin D 1000 IU Tab ORAL SCH (09:33)
[2016-10-31] MEDS: Advair 250/50 Inhaler - 14 dose INH SCH ×2 (09:40→19:20)
[2016-10-31] MEDS: Enoxaparin 40mg Inj SUBQ SCH (09:40)
[2016-10-31] MEDS: Miralax 17gm pkt ORAL SCH (09:46)
[2016-10-31] MEDS: Artificial Tears 1.4% Op Soln BOTH EYES SCH ×3 (09:46→18:23)
[2016-10-31 12:16] VITALS: BP 107/57
[2016-10-31 16:07] VITALS: BP 110/51
[2016-10-31 20:00] VITALS: BP 114/62
[2016-10-31] MEDS: Ramelteon 8mg tab (Approved for Delirium use only) ORAL SCH (20:52)
[2016-10-31] MEDS ORDERED: Bisacodyl EC 5mg tab ORAL ONE (21:45)
--- NOTE | 2016-10-31 21:54 | Geriatric Progress Note ---
Assessment/Plan Problems: (1) Hypothyroid (2) Hyperlipemia (3) Major depression, chronic (4) Hip fracture, left (5) Dementia with behavioral disturbance (6) Leukocytosis (7) Constipation Assessment/Plan Leukocytosis has resolved. Decreased intake, no b.m., will add additional bowel therapy. Otherwise appears stable, able to d/c to SNF when bed available. Recheck labs. Expect d/c by tomorrow. Discussed with: hospital staff Subjective Interval Events Patient in bed, arouses with her name. No overt discomfort, but responses are incoherent. Staff reports no b.m., since admission. P.o. intake diminished last day or so. Subjective No meaningful responses elicited. Geriatric Geriatric Last 24 Hour Vital Signs Date Time Temp Pulse Resp B/P Pulse Ox O2 Delivery O2 Flow Rate FiO2 10/31/16 20:00 97.5 86 18 114/62 96 Nasal Cannula 2.0 10/31/16 19:24 85 16 96 Nasal Cannula 2.0 28 10/31/16 19:23 84 16 94 Nasal Cannula 2.0 10/31/16 19:22 Nasal Cannula 2.0 28 10/31/16 19:22 94 Nasal Cannula 2.0 10/31/16 16:07 97.0 79 19 110/51 97 Nasal Cannula 2.0 10/31/16 13:45 84 18 99 Nasal Cannula 2.0 10/31/16 13:45 81 16 97 Nasal Cannula 2.0 10/31/16 12:16 97.5 93 19 107/57 97 Nasal Cannula 2.0 10/31/16 09:40 83 18 97 Nasal Cannula 2.0 10/31/16 09:40 Nasal Cannula 2.0 10/31/16 08:23 96.9 78 20 115/45 98 Nasal Cannula 2.0 10/31/16 07:36 86 18 100 Nasal Cannula 2.0 10/31/16 07:33 Nasal Cannula 2.0 10/31/16 07:33 86 18 98 Nasal Cannula 2.0 10/31/16 07:33 98 Nasal Cannula 2.0 28 10/31/16 03:35 98.1 88 17 113/66 99 Nasal Cannula 2.0 10/31/16 01:11 90 18 100 Nasal Cannula 2.0 10/31/16 01:11 90 18 96 Nasal Cannula 2.0 10/30/16 23:30 97.9 80 17 105/85 98 Room Air Intake and Output 10/30/16 10/31/16 19:00 07:00 Intake Total 240 ml Balance 240 ml Intake Oral 240 ml # Voids 2 3 Laboratory Tests Test 10/31/16 06:40 White Blood Count 9.7 K/UL (4.8-10.8) Red Blood Count 3.07 M/UL (4.20-5.40) L Hemoglobin 10.1 G/DL (12.0-16.0) L Hematocrit 31.8 % (37.0-47.0) L Mean Corpuscular Volume 104 FL (80-99) H Mean Corpuscular Hemoglobin 32.8 PG (27.0-31.0) H Mean Corpuscular Hemoglobin Concent 31.7 G/DL (32.0-36.0) L Red Cell Distribution Width 12.4 % (11.6-14.8) Platelet Count 292 K/UL (150-450) Mean Platelet Volume 5.4 FL (6.5-10.1) L Neutrophils (%) (Auto) 81.4 % (45.0-75.0) H Lymphocytes (%) (Auto) 10.7 % (20.0-45.0) L Monocytes (%) (Auto) 6.2 % (1.0-10.0) Eosinophils (%) (Auto) 1.2 % (0.0-3.0) Basophils (%) (Auto) 0.5 % (0.0-2.0) Current Medications Medications (Trade) Dose Ordered Sig/Hitesh Route PRN Reason Start Time Stop Time Status Last Admin Dose Admin Acetaminophen (Tylenol) 650 mg Q4H PRN ORAL Mild Pain/Temp > 100.5 10/29/16 16:00 11/28/16 15:59 Acetaminophen/ Hydrocodone Bitart (Milner 10/325) 1 ea Q4H PRN ORAL Severe Pain (Pain Scale 7-10) 10/29/16 16:00 11/05/16 15:59 Acetaminophen/ Hydrocodone Bitart (Milner 5/325) 1 tab Q4H PRN ORAL Moderate Pain (Pain Scale 4-6) 10/29/16 16:00 11/05/16 15:59 Albuterol/ Ipratropium (DuoNeb 0.5-3(2.5)mg/3ml) 3 ml Q6HRT HHN 10/27/16 19:00 11/01/16 18:59 10/31/16 19:19 Artificial Tears (Akwa-Tears) 1 drop TID BOTH EYES 10/27/16 18:00 11/26/16 17:59 10/31/16 18:23 Bisacodyl (Dulcolax) 10 mg ONCE ONCE RECTAL 11/01/16 05:30 11/01/16 05:31 UNV Bisacodyl (Dulcolax) 20 mg ONCE ONCE ORAL 10/31/16 21:45 10/31/16 21:46 UNV Celecoxib (CeleBREX) 200 mg DAILY ORAL 10/29/16 09:00 11/28/16 08:59 10/31/16 09:32 Citalopram Hydrobromide (celeXA) 10 mg DAILY ORAL 10/28/16 09:00 11/27/16 08:59 10/31/16 09:32 Docusate Sodium (Colace) 100 mg THREE TIMES A DAY ORAL 10/29/16 09:00 11/28/16 08:59 10/31/16 18:23 Donepezil HCl (Aricept) 10 mg DAILY ORAL 10/28/16 09:00 11/27/16 08:59 10/31/16 09:31 Enoxaparin Sodium (Lovenox) 40 mg DAILY SUBQ 10/31/16 09:00 11/30/16 08:59 10/31/16 09:40 Levothyroxine Sodium (Synthroid) 50 mcg ACBREAKFAST ORAL 10/28/16 06:30 11/27/16 06:29 10/31/16 05:51 Magnesium Hydroxide (Mom) 30 ml DAILYPRN PRN ORAL Constipation 10/28/16 19:30 11/27/16 19:29 10/31/16 21:42 Metoclopramide HCl (Reglan) 5 mg Q6H PRN IVP Nausea & Vomiting 10/28/16 19:30 11/27/16 19:29 Multivitamins (Multivitamins) 1 tab DAILY ORAL 10/28/16 09:00 11/27/16 08:59 10/31/16 09:32 Pantoprazole (Protonix) 40 mg DAILY ORAL 10/28/16 09:00 11/27/16 08:59 10/31/16 09:32 Polyethylene Glycol (Miralax) 17 gm DAILY ORAL 10/28/16 09:00 11/27/16 08:59 10/31/16 09:46 Quetiapine Fumarate (SEROquel) 12.5 mg BID ORAL 10/27/16 18:00 11/26/16 17:59 10/31/16 18:23 Ramelteon (Rozerem) 8 mg QHS ORAL 10/27/16 21:00 11/26/16 20:59 10/31/16 20:52 Salmeterol Xinafoate/ Fluticasone (Advair 250/50 Diskus) 1 puffs EVERY 12 HOURS INH 10/27/16 21:00 11/26/16 20:59 10/31/16 19:20 Sodium Phosphate (Fleet's Sodium Phosl Enema) 133 ml ONCE ONCE RECTAL 11/01/16 06:30 11/01/16 06:31 UNV Vitamin D (Vitamin D) 2,000 intlu DAILY ORAL 10/28/16 09:00 11/27/16 08:59 10/31/16 09:33 Height (Feet): 5 Height (Inches): 0.00 Weight (Pounds): 140 General Appearance: no apparent distress, alert, non-toxic Head: normocephalic, atraumatic Eyes: bilateral anicteric ENT: normal voice Neck: full range of motion, no mass Respiratory: lungs clear Cardiovascular: regular rate, rhythm Gastrointestinal: normal bowel sounds, non tender, soft, no mass, no organomegaly, non-distended Musculoskeletal: no calf tenderness Edema: no edema noted Generalized Neurologic: no new focality SHANNON RO Oct 31, 2016 21:54
[2016-11-01] VITALS: BP 106/57
[2016-11-01 04:00] VITALS: BP 107/66
[2016-11-01] MEDS ORDERED: Fleet's Enema 133ml RECTAL ONE (06:30)
[2016-11-01] MEDS: DuoNeb 0.5-3(2.5)mg/3ml neb HHN SCH ×2 (07:04→12:15)
[2016-11-01 07:46] LABS: BASOPHILS % (AUTO) 0.7 % (0.0-2.0); EOSINOPHILS % (AUTO) 0.1 % (0.0-3.0); LYMPHOCYTES % (AUTO) 15.2 % (20.0-45.0); MEAN CORPUSCULAR HEMOGLOBIN 34.5 PG (27.0-31.0); MEAN CORPUSCULAR HGB CONC 33.3 G/DL (32.0-36.0); MEAN CORPUSCULAR VOLUME 104 FL (80-99); MEAN PLATELET VOLUME 5.3 FL (6.5-10.1); MONOCYTES % (AUTO) 7.1 % (1.0-10.0); PLATELET COUNT 302 K/UL (150-450); RED BLOOD COUNT 2.92 M/UL (4.20-5.40); RED CELL DISTRIBUTION WIDTH 12.4 % (11.6-14.8); WHITE BLOOD COUNT 9.6 K/UL (4.8-10.8)
[2016-11-01 08:00] VITALS: BP 102/55
[2016-11-01 08:18] LABS: ALANINE AMINOTRANSFERASE 9 U/L (3-33); ALBUMIN/GLOBULIN RATIO 0.9 (1.0-2.7); ANION GAP 12 (5-15); ASPARTATE AMINO TRANSFERASE 29 U/L (5-40); CALCIUM 8.7 mg/dL (8.6-10.2); CARBON DIOXIDE 26 mEQ/L (20-30); CHLORIDE 102 mEQ/L (98-107); CREATININE 0.5 mg/dL (0.5-0.9); HEMOLYSIS 20; MAGNESIUM 2.2 mg/dL (1.7-2.5); POTASSIUM 4.2 mEQ/L (3.4-4.9); SODIUM 140 mEQ/L (135-145); TOTAL PROTEIN 6.1 g/dL (6.6-8.7)
[2016-11-01] MEDS: Miralax 17gm pkt ORAL SCH (08:35)
[2016-11-01] MEDS: Docusate 100mg cap ORAL SCH ×2 (08:35→13:00)
[2016-11-01] MEDS: Advair 250/50 Inhaler - 14 dose INH SCH (09:00)
[2016-11-01] MEDS: Artificial Tears 1.4% Op Soln BOTH EYES SCH ×2 (09:07→14:07)
[2016-11-01] MEDS: Donepezil 10mg tab ORAL SCH (09:08)
[2016-11-01] MEDS: Vitamin D 1000 IU Tab ORAL SCH (09:08)
[2016-11-01] MEDS: celeBREX 200mg Cap **SURGERY PATIENTS ONLY ORAL SCH (09:09)
[2016-11-01] MEDS: Enoxaparin 40mg Inj SUBQ SCH (09:12)
[2016-11-01] MEDS: Citalopram Hydrobromide 10 MG TAB ORAL SCH (10:03)
[2016-11-01 12:00] VITALS: BP 98/49
[2016-11-01 14:07] VITALS: BP 102/45
--- NOTE | 2016-11-01 19:07 | Cardiology Report ---
APPROVED REPORT EKG Measurement Heart [id number] Sinus rhythm with short MT Otherwise normal ECG
== END 2016-11-01 14:20 | DRG 470 ==
LOC: EDBD 10:18 → EMR 10:47 → 4W 11:19 → EDBEDREQ 14:06
PROC: 0SRS0JA Replacement of Left Hip Joint, Femoral Surface with Synthetic Substitute, Uncemented, Open Approach (ICD-10-PCS; principal; 2016-10-28 17:00)
DX: S72.142A Displaced intertrochanteric fracture of left femur, initial encounter for closed fracture (principal); F03.91 Unspecified dementia, unspecified severity, with behavioral disturbance; I48.91 Unspecified atrial fibrillation; J44.9 Chronic obstructive pulmonary disease, unspecified; F32.9 Major depressive disorder, single episode, unspecified; R13.10 Dysphagia, unspecified; R47.01 Aphasia; X58.XXXA Exposure to other specified factors, initial encounter; E03.9 Hypothyroidism, unspecified; K59.00 Constipation, unspecified; E78.5 Hyperlipidemia, unspecified; R26.89 Other abnormalities of gait and mobility; E11.9 Type 2 diabetes mellitus without complications
CPT/HCPCS: 36415; 71010; 72170; 73502; 80048; 80053; 81001; 83735; 85007; 85025; 85610; 85730; 86850; 86900; 86901; 87081; 87086; 87181; 93005; 93306; 94003; 94150; 94640; 94664; 94760; J2250; J2405; J7620

== ENCOUNTER 2017-01-20 11:52 | Emergency (ER) | payer MEDICARE, BC ==
[~2017-01-20] VITALS: Ht 162.6 cm; Wt 72.6 kg
[~2017-01-20 11:52] MED LIST changes: +ACETAMINOPHEN325 M1 ORAL; +ARTIFICIAL TEAR15 ML BOTH EYES; +CELEBREX200 MG ORAL; +DUONEB 0.5-3(2.53 ML HHN; +LOVENOX10 MG SUBQ; +MOM30 ML ORAL; +NORCO 5-325 TA1 EACH ORAL; +ROZEREM8 MG ORAL; +VITAMIN D1000 UNI1 ORAL
[2017-01-20 12:20] VITALS: BP 103/70
--- NOTE | 2017-01-20 12:31 | Emergency Room Report ---
History of Present Illness General Chief Complaint: Lower Extremity Injury Source: Medical Record, Caregiver Present Illness HPI Patient was brought in by caregiver Patient had x-ray imaging of the hip approximately one week ago This is report from the health facility it did show a dislocation Patient is brought in today for evaluation of this Patient has severe dementia cannot provide any history There was no reports of obvious fall or other trauma History of present illness is significantly limited However given the abnormal x-ray from last week There was a discussion with the patient's orthopedist and it was decided the patient to present to the ER for further eval Allergies: Coded Allergies: NO KNOWN ALLERGIES (Unverified Allergy, Unknown, 09/09/16) Patient History Limited by: medical condition Pertinent Family History: unable to obtain Reviewed Nursing Documentation: PMH: Agreed, PSxH: Agreed Nursing Documentation-PMH Past Medical History: No History, Except For Hx Cardiac Problems: No Hx Hypertension: No - HYPOTHYROIDISM Hx Pacemaker: No Hx Asthma: Yes Hx COPD: Yes Hx Diabetes: No Hx Cancer: No Hx Gastrointestinal Problems: Yes Hx Dialysis: No Hx Neurological Problems: Yes Hx Cerebrovascular Accident: No Hx Dementia: Yes Hx Seizures: No Review of Systems All Other Systems: limited - Other than the ones mentioned in the history of present illness all others are reviewed however they do stay limited due to the patient's mental status Physical Exam Vital Signs Date Time Temp Pulse Resp B/P (MAP) Pulse Ox O2 Delivery O2 Flow Rate FiO2 01/20/17 12:10 97.2 54 14 103/70 100 Room Air Sp02 EP Interpretation: reviewed, normal General Appearance: well appearing, no apparent distress Head: normocephalic, atraumatic Eyes: bilateral eye PERRL, bilateral eye EOMI ENT: hearing grossly normal, normal pharynx Respiratory: lungs clear Cardiovascular #1: regular rate, rhythm Gastrointestinal: non tender, soft Musculoskeletal: other - Extremely difficult exam patient is flexed at both knees, does not follow commands, has significant dementia , Neurologic: responsive Skin: no rash, warm/dry Lymphatic: no adenopathy Medical Decision Making Diagnostic Impression: Primary Impression: Hip dislocation, left ER Course Given the patient's history and presentation CAT scan imaging was obtained for further evaluation there appears to be fracture dislocation of the surgical site and the partial hip replacement Initial x-ray was approximately one week ago Exact time of injury is unknown At this time contact was made with orthopedic specialty Patient's primary physician Dr gil I spoke to Mrs. gomez who is the patient's conservator In discussion with Dr. soria patient has not candidate for conscious sedation at this time as well given the risk and benefits Also given the patient's prolonged dislocation I feel that this is appropriate And the patient is dispositioned back to [facility] care [facility] Other X-Ray Diagnostic Results Other X-Ray Diagnostic Results : X-Ray ordered: left hip # of Views/Limited Vs Complete: 3 View Indication: Pain EP Interpretation: Yes Interpretation: other - Fracture, dislocation, soft tissue changes with edema Impression: Other - fracture dislocation left hip Electronically Signed by: Bhavna Klein, DO CT/MRI/US Diagnostic Results CT/MRI/US Diagnostic Results : Impression CT pelvicImpression: Superior and posterior dislocation of the left hip bipolar hemiarthroplasty. No obvious acute fracture is identified. However there is extensive heterotopic bone about the left hip. A subacute to chronic fracture of the right hemisacrum, nondisplaced. Generalized osteoporosis. Findings discussed with Dr. Bhavna Klein in the emergency department. Last Vital Signs Date Time Temp Pulse Resp B/P (MAP) Pulse Ox O2 Delivery O2 Flow Rate FiO2 01/20/17 12:10 97.2 54 14 103/70 100 Room Air Status: improved Disposition: ASSISTED LIVING Condition: Stable BHAVNA KLEIN D.O. Jan 20, 2017 12:31
[2017-01-20] MEDS ORDERED: OMEPRAZOLE20 M3 ORAL (12:48)
[2017-01-20] MEDS ORDERED: CELEXA10 MG ORAL (12:48)
[2017-01-20] MEDS ORDERED: DOCUSATE SODIU100 M2 ORAL (12:48)
[2017-01-20] MEDS ORDERED: ARICEPT23 MG ORAL (12:48)
[2017-01-20] MEDS ORDERED: SEROQUEL25 MG ORAL (12:48)
[2017-01-20] MEDS ORDERED: SYNTHROID50 MCG ORAL (12:48)
[2017-01-20] MEDS ORDERED: ADVAIR 250-501 EACH INH (12:54)
[2017-01-20] MEDS ORDERED: VITAMIN D1000 UNI1 ORAL (12:54)
[2017-01-20] MEDS ORDERED: FUROSEMIDE20 M1 ORAL (12:54)
[2017-01-20] MEDS ORDERED: COMBIVENT RESPIM4 GM IH ×2 (12:54→13:04)
[2017-01-20] MEDS ORDERED: MIRALAX17 G2 ORAL (13:04)
[2017-01-20] MEDS ORDERED: REFRESH TEARS15 ML OP (13:04)
[2017-01-20] MEDS ORDERED: QUETIAPINE FUMA25 MG ORAL (13:04)
--- NOTE | 2017-01-20 13:21 | Diagnostic Imaging Report ---
Indication: Presenting with left hip dislocation. History of a left hip replacement. Recent subsequent trauma to the left hip. Technique: Continuous helical transaxial imaging of the pelvis was obtained from the iliac crest to the pubic symphysis. Coronal 2-D reformats were also obtained. Study obtained in a Siemens sensation [address] Intravenous non-ionic contrast was administered. Total Dose length Product (DLP): [address] Dose Index Volume (CTDIvol): 2.25, 16.41 mGy Comparison: Plain film 10/27/16, 10/29/16 Findings: Plain film evaluation 10/29/16 showed a left hip bipolar hemiarthroplasty in good position. The current study demonstrates superior posterior dislocation of the hip. The prosthesis is several centimeters above the left acetabulum residing behind posterior column of the left acetabulum in an overlapping fashion. Also there are extensive bone fragments about the left hip both anterior and posterior to the joint capsule. There is no definite acute fracture of the acetabulum identified. There is no definite acute fracture of the proximal femur with limitation due to streak artifact from hardware present. The bones are osteopenic. There is a fracture of the right hemisacrum which is probably old given that there is sclerosis about the fracture line. The right hip is unremarkable. Aortoiliac calcifications are moderate. Impression: Superior and posterior dislocation of the left hip bipolar hemiarthroplasty. No obvious acute fracture is identified. However there is extensive heterotopic bone about the left hip. A subacute to chronic fracture of the right hemisacrum, nondisplaced. Generalized osteoporosis. Findings discussed with Dr. Bhavna Barriga in the emergency department. The CT scanner at [facility] is accredited by the [employer] and the scans are performed using dose optimization techniques as appropriate to a performed exam including Automatic Exposure control.
--- NOTE | 2017-01-20 13:58 | Diagnostic Imaging Report ---
Indications: hip pain Comparison: Left hip 10/29/16, Findings: Two views of the left hip were obtained. Left hip hemiarthroplasty is dislocated superiorly above the acetabulum with the bipolar prosthesis overlapping the superior posterior part of the acetabulum. Heterotopic bone is fairly extensive about the left hip joint. The bones are osteopenic. Impression: Dislocated left hip hemiarthroplasty. These are for to the CT report
[2017-01-20 14:02] VITALS: BP 128/65
[2017-01-20 15:40] VITALS: BP 108/70
== END 2017-01-20 15:40 | disposition home or self-care (01) ==
LOC: EMR 12:30
DX: T84.021A Dislocation of internal left hip prosthesis, initial encounter (principal); Y83.1 Surgical operation with implant of artificial internal device as the cause of abnormal reaction of the patient, or of later complication, without mention of misadventure at the time of the procedure; Y92.009 Unspecified place in unspecified non-institutional (private) residence as the place of occurrence of the external cause; E03.9 Hypothyroidism, unspecified; J45.909 Unspecified asthma, uncomplicated; J44.9 Chronic obstructive pulmonary disease, unspecified
CPT/HCPCS: 72192; 73502; 99284

== ENCOUNTER 2018-05-05 13:25 | Emergency (ER) | payer MEDICARE, BC ==
[~2018-05-05] VITALS: Ht 157.5 cm; Wt 63.5 kg
[2018-05-05 13:25] VITALS: BP 125/108
[~2018-05-05 13:25] MED LIST changes: +ARICEPT23 MG ORAL; +CELEXA10 MG ORAL; +DOCUSATE SODIU100 M2 ORAL; +OMEPRAZOLE20 M3 ORAL; +QUETIAPINE FUMA25 MG ORAL
--- NOTE | 2018-05-05 13:25 | NUR ---
ED Nurse Note: PT BROUGHT IN BY AMBULANCE FROM [facility]. AOX0 WHICH IS BASELINE PER EMS. PER EMS, PT WAS NOT AROUSABLE AT FACILITY. UPON ARRIVAL, EMS STATE THEY WERE ABLE TO WAKE HER UP IMMEDIATELY BY GENTLE TAPPING. PT REMAINS AWAKE AT BEDSIDE THOUGH SHE IS NONVERBAL, WHICH IS BASELINE PER EMS. NO SIGNS OF DISTRESS, VSS.
[2018-05-05] MEDS ORDERED: Sodium Chloride 500ML 500 ML IV ONE (13:42)
[2018-05-05] MEDS ORDERED: ARICEPT10 MG ORAL (13:51)
--- NOTE | 2018-05-05 14:13 | NUR ---
ED Nurse Note: XRAY AT BEDSIDE.
[2018-05-05] MEDS ORDERED: LORazepam Inj 2mg/ml 1ml IV ONE (14:45)
--- NOTE | 2018-05-05 14:46 | Emergency Room Report ---
History of Present Illness General Chief Complaint: Altered Level of Consciousness Source: Patient, EMS Present Illness Allergies: Coded Allergies: NO KNOWN ALLERGIES (Unverified Allergy, Unknown, 09/09/16) Patient History Past Surgical History: unable to obtain Pertinent Family History: unable to obtain Nursing Documentation-[facility] Past Medical History: No History, Except For Hx Cardiac Problems: No Hx Hypertension: No - HYPOTHYROIDISM Hx Pacemaker: No Hx Asthma: Yes Hx COPD: Yes Hx Diabetes: No Hx Cancer: No Hx Gastrointestinal Problems: Yes Hx Dialysis: No Hx Neurological Problems: Yes - DEMENTIA Hx Cerebrovascular Accident: No Hx Dementia: Yes Hx Seizures: No Review of Systems All Other Systems: limited Physical Exam Vital Signs Date Time Temp Pulse Resp B/P (MAP) Pulse Ox O2 Delivery O2 Flow Rate FiO2 05/05/18 13:24 98.2 71 18 125/108 96 Room Air Sp02 EP Interpretation: reviewed Head: normocephalic, atraumatic ENT: normal ENT inspection Neck: normal inspection Respiratory: normal inspection Cardiovascular #1: normal inspection Neurologic: other - unable to assess Medical Decision Making Diagnostic Impression: Primary Impression: Altered level of consciousness Additional Impression: UTI (urinary tract infection) Laboratory Tests Test 05/05/18 14:10 05/05/18 14:35 White Blood Count 5.7 K/UL (4.8-10.8) Red Blood Count 4.30 M/UL (4.20-5.40) Hemoglobin 13.7 G/DL (12.0-16.0) Hematocrit 42.5 % (37.0-47.0) Mean Corpuscular Volume 99 FL (80-99) Mean Corpuscular Hemoglobin 31.9 PG (27.0-31.0) H Mean Corpuscular Hemoglobin Concent 32.3 G/DL (32.0-36.0) Red Cell Distribution Width 12.7 % (11.6-14.8) Platelet Count 179 K/UL (150-450) Mean Platelet Volume 6.3 FL (6.5-10.1) L Neutrophils (%) (Auto) 55.6 % (45.0-75.0) Lymphocytes (%) (Auto) 34.2 % (20.0-45.0) Monocytes (%) (Auto) 9.0 % (1.0-10.0) Eosinophils (%) (Auto) 0.0 % (0.0-3.0) Basophils (%) (Auto) 1.3 % (0.0-2.0) Prothrombin Time 10.3 SEC (9.30-11.50) Prothrombin Time INR 1.0 (0.9-1.1) PTT 30 SEC (23-33) Sodium Level 142 MMOL/L (136-145) Potassium Level 3.4 MMOL/L (3.5-5.1) L Chloride Level 105 MMOL/L (98-107) Carbon Dioxide Level 28 MMOL/L (21-32) Anion Gap 9 mmol/L (5-15) Blood Urea Nitrogen 15 mg/dL (7-18) Creatinine 0.8 MG/DL (0.55-1.30) Estimate Glomerular Filtration Rate mL/min (>60) Glucose Level 85 MG/DL (74-106) Calcium Level 8.8 MG/DL (8.5-10.1) Total Bilirubin 0.3 MG/DL (0.2-1.0) Aspartate Amino Transferase (AST) 34 U/L (15-37) Alanine Aminotransferase (ALT) 22 U/L (12-78) Alkaline Phosphatase 85 U/L (46-116) Troponin I 0.016 ng/mL (0.000-0.056) Total Protein 7.5 G/DL (6.4-8.2) Albumin 3.3 G/DL (3.4-5.0) L Globulin 4.2 g/dL Albumin/Globulin Ratio 0.8 (1.0-2.7) L Lipase 255 U/L (73-393) Urine Color Pale yellow Urine Appearance Slightly cloudy Urine pH 6 (4.5-8.0) Urine Specific [place] 1.010 (1.005-1.035) Urine Protein Negative (NEGATIVE) Urine Glucose (UA) Negative (NEGATIVE) Urine Ketones Negative (NEGATIVE) Urine Blood 2+ (NEGATIVE) H Urine Nitrite Negative (NEGATIVE) Urine Bilirubin Negative (NEGATIVE) Urine Urobilinogen Normal MG/DL (0.0-1.0) Urine Leukocyte Esterase 3+ (NEGATIVE) H Urine RBC 2-4 /HPF (0 - 2) H Urine WBC 15-20 /HPF (0 - 2) H Urine Squamous Epithelial Cells Occasional /LPF Urine Bacteria Many /HPF (NONE) H Chest X-Ray Diagnostic Results Chest X-Ray Diagnostic Results : Chest X-Ray Ordered: Yes # of Views/Limited/Complete: 1 View Indication: Other - AMS PA Xray: Interpretation reviewed Interpretation: no consolidation, no effusion, no pneumothorax Reevaluation Time: 16:07 - discussed with Dr. Cameron, the primary doctor for this patient. Agrees with plant to admit. patient has no signs of sepsis. In nosignificant metabolic abnormalities. The patient is at baseline. Patient is afebrile. Last Vital Signs Date Time Temp Pulse Resp B/P (MAP) Pulse Ox O2 Delivery O2 Flow Rate FiO2 05/05/18 13:25 71 18 Room Air 05/05/18 13:25 98.2 125/108 96 Status: unchanged Disposition: HOME, SELF-CARE Referrals: Jamin Cameron MD (PCP) Patient Instructions: Urinary Tract Infection, [id number] PARRIS MAYBERRY May 05, 2018 14:46
[2018-05-05 14:49] LABS: ANION GAP 9 mmol/L (5-15); BLOOD UREA NITROGEN 15 mg/dL (7-18); CALCIUM 8.8 MG/DL (8.5-10.1); CARBON DIOXIDE 28 MMOL/L (21-32); CHLORIDE 105 MMOL/L (98-107); CREATININE 0.8 MG/DL (0.55-1.30); POTASSIUM 3.4 MMOL/L (3.5-5.1); SODIUM 142 MMOL/L (136-145)
--- NOTE | 2018-05-05 14:50 | NUR ---
ED Nurse Note: PT TO CT VIA ADAN
[2018-05-05 14:55] LABS: ALANINE AMINOTRANSFERASE 22 U/L (12-78); ALBUMIN 3.3 G/DL (3.4-5.0); ALBUMIN/GLOBULIN RATIO 0.8 (1.0-2.7); ALKALINE PHOSPHATASE 85 U/L (46-116); ASPARTATE AMINO TRANSFERASE 34 U/L (15-37); BILIRUBIN,TOTAL 0.3 MG/DL (0.2-1.0)
[2018-05-05 14:56] LABS: APPEARANCE,URINE SLIGHTLY CLOUDY; BILIRUBIN, URINE NEGATIVE (NEGATIVE); COLOR,URINE PALE YELLOW; GLUCOSE, URINE (UA) NEGATIVE (NEGATIVE); KETONES,URINE NEGATIVE (NEGATIVE); LEUKOCYTE ESTERASE ,URINE 3+ (NEGATIVE); NITRITE,URINE NEGATIVE (NEGATIVE); PH,URINE 6 (4.5-8.0); PROTEIN,URINE NEGATIVE (NEGATIVE); UROBILINOGEN,URINE NORMAL MG/DL (0.0-1.0)
[2018-05-05 14:58] LABS: BASOPHILS % (AUTO) 1.3 % (0.0-2.0); HEMATOCRIT 42.5 % (37.0-47.0); HEMOGLOBIN 13.7 G/DL (12.0-16.0); LYMPHOCYTES % (AUTO) 34.2 % (20.0-45.0); MEAN CORPUSCULAR VOLUME 99 FL (80-99); NEUTROPHILS % (AUTO) 55.6 % (45.0-75.0); PLATELET COUNT 179 K/UL (150-450); RED CELL DISTRIBUTION WIDTH 12.7 % (11.6-14.8); WHITE BLOOD COUNT 5.7 K/UL (4.8-10.8)
--- NOTE | 2018-05-05 14:59 | NUR ---
ED Nurse Note: PT BACK FROM CT VIA ADAN
--- NOTE | 2018-05-05 15:24 | Diagnostic Imaging Report ---
Indication: Dyspnea Comparison: 10/27/2016 A single view chest radiograph was obtained. Findings: No definite infiltrate or pulmonary vascular congestion identified. The heart is enlarged. The aorta is mildly enlarged consistent with atherosclerotic vascular disease. Cholecystectomy clips noted in the right upper quadrant abdomen. The bones are osteopenic. Impression: No acute disease
--- NOTE | 2018-05-05 15:32 | Diagnostic Imaging Report ---
Indication: Altered mental status Technique: Contiguous 5 mm thick transaxial imaging of the head obtained in a Siemens Sensation [address] scanner. Soft tissue and bone windows generated. Automatic Exposure Control was utilized. Total Dose length Product (DLP): 1411.[address] Dose Index Volume (CTDIvol): 70.38 mGy Comparison: none Findings: There is marked prominence of the ventricles, basal cisterns, and cerebral sulci consistent with atrophy. Moderate to severe nonspecific, white matter hypoattenuation is noted throughout the brain likely due to chronic small vessel disease. There is no midline shift, edema, acute hemorrhage, mass effect, or abnormal extra-axial fluid collections. Bones and extra osseous soft tissues are unremarkable. There is opacification of the right ethmoid, spleen maxillary sinus. There is thickening of the wall of the right maxillary antrum. Bilateral medial maxillectomies noted. Impression: No acute intracranial bleed, mass effect or edema identified. Severe atrophy of the brain. Moderate to severe chronic small vessel disease involving white matter tracts. Moderate right-sided sinusitis and maxillary osteitis. Status post bilateral antral windows The CT scanner at [facility] is accredited by the [employer] and the scans are performed using dose optimization techniques as appropriate to a performed exam including Automatic Exposure control.
[2018-05-05] MEDS ORDERED: cefTRIAXone 1 GM in NS 55 ML IVPB ONE (16:15)
[2018-05-05 16:24] VITALS: BP 119/68
--- NOTE | 2018-05-05 16:56 | NUR ---
ED Nurse Note: SPOKE WITH INVENTORY TAKER, MARK AT [facility] FOR REPORT. REPORT GIVEN AND FACILITY READY TO ACCEPT PT BACK. FACILITY AWARE ETA TO [facility] IS 5150.
--- NOTE | 2018-05-05 18:04 | NUR ---
ED Nurse Note: [place] AT BEDSIDE. REPORT GIVEN TO EMS. PT'S VSS AND READY FOR TRANSPORT BACK TO [facility]. PT TAKEN BACK TO FACILITY VIA GURNEY WITH ALL BELONGINGS BY AMBULANCE.
[2018-05-05 18:05] VITALS: BP 109/82
== END 2018-05-05 18:07 | disposition home or self-care (01) ==
LOC: EDBD 13:25 → EMR 14:10
DX: R41.82 Altered mental status, unspecified (principal); N39.0 Urinary tract infection, site not specified; J44.9 Chronic obstructive pulmonary disease, unspecified; E03.9 Hypothyroidism, unspecified; F03.90 Unspecified dementia, unspecified severity, without behavioral disturbance, psychotic disturbance, mood disturbance, and anxiety; J32.9 Chronic sinusitis, unspecified
CPT/HCPCS: 36415; 70450; 71045; 80053; 81003; 83690; 84484; 85025; 85610; 85730; 87086; 87181; 96365; 96375; 99284; J0696

== ENCOUNTER 2019-02-01 12:26 | Inpatient (IN) | payer MEDICARE, BC ==
[~2019-02-01] VITALS: Ht 160 cm; Wt 61.2 kg
[2019-02-01 13:00] VITALS: BP 137/60
--- NOTE | 2019-02-01 13:03 | NUR ---
ED Nurse Note: Patient arrived from assisted living facility for suspected aspiration pneumonia. Pt has coarse respirations. Patient lethargic, arouses to verbal stimuli. pt tolerates lab draw and iv start well. flu swab obtained. pt on radiation monitor. vs as noted.
--- NOTE | 2019-02-01 13:06 | NUR ---
ED Nurse Note: pt with cxr done and tech doing ecg.
[2019-02-01] MEDS ORDERED: Albuterol/Ipratropium 3ml neb HHN ONE (13:30)
[2019-02-01] MEDS ORDERED: Piperacillin/Tazobactam 3.375 GM in NS 110 ML IVPB ONE (13:30)
[2019-02-01 13:44] LABS: BASOPHILS % (AUTO) 0.9 % (0.0-2.0); HEMATOCRIT 42.5 % (37.0-47.0); HEMOGLOBIN 14.2 G/DL (12.0-16.0); LYMPHOCYTES % (AUTO) 27.9 % (20.0-45.0); MEAN CORPUSCULAR VOLUME 100 FL (80-99); MONOCYTES % (AUTO) 8.6 % (1.0-10.0); NEUTROPHILS % (AUTO) 62.7 % (45.0-75.0); PLATELET COUNT 156 K/UL (150-450); RED BLOOD COUNT 4.25 M/UL (4.20-5.40); RED CELL DISTRIBUTION WIDTH 12.1 % (11.6-14.8)
[2019-02-01 13:56] LABS: ANION GAP 9 mmol/L (5-15); BLOOD UREA NITROGEN 13 mg/dL (7-18); CALCIUM 8.6 MG/DL (8.5-10.1); CARBON DIOXIDE 26 MMOL/L (21-32); CHLORIDE 102 MMOL/L (98-107); CREATININE 0.7 MG/DL (0.55-1.30); POTASSIUM 4.4 MMOL/L (3.5-5.1); SODIUM 137 MMOL/L (136-145)
--- NOTE | 2019-02-01 13:57 | Emergency Room Report ---
History of Present Illness General Chief Complaint: Dyspnea/Respdistress Source: Caregiver, PMD Present Illness HPI She is an 83-year-old female brought in by EMS after increased shortness of breath. Patient was at a assisted living facility. She had been having increased difficulty with respirations. She had been noted to have some episodes of vomiting earlier in the week. She had subjective fever several days ago which had progressively worsened. Patient did have increased congestion and difficulty breathing. She was sent by primary care physician for further evaluation. Allergies: Coded Allergies: NO KNOWN ALLERGIES (Unverified Allergy, Unknown, 09/09/16) Patient History Past Medical History: see triage record Past Surgical History: unable to obtain Pertinent Family History: unable to obtain Reviewed Nursing Documentation: PMH: Agreed; PSxH: Agreed Nursing Documentation-PMH Past Medical History: No History, Except For Hx Cardiac Problems: No Hx Hypertension: No - HYPOTHYROIDISM Hx Pacemaker: No Hx Asthma: Yes Hx COPD: Yes Hx Diabetes: No Hx Cancer: No Hx Gastrointestinal Problems: Yes Hx Dialysis: No Hx Neurological Problems: Yes - DEMENTIA Hx Cerebrovascular Accident: No Hx Dementia: Yes Hx Seizures: No Review of Systems All Other Systems: limited - by poor historian Physical Exam Vital Signs Date Time Temp Pulse Resp B/P (MAP) Pulse Ox O2 Delivery O2 Flow Rate FiO2 02/01/19 12:39 98.1 86 22 137/68 (91) 97 Room Air 02/01/19 13:38 21 Sp02 EP Interpretation: reviewed, normal General Appearance: alert, Chronically Ill Head: atraumatic ENT: normal ENT inspection, hearing grossly normal, normal voice Neck: normal inspection, supple, no bony tend, limited range of motion Respiratory: no retraction, rhonchi, wheezing Cardiovascular #1: regular rate, rhythm, no edema Gastrointestinal: normal inspection, normal bowel sounds, non tender, soft, no guarding, no hernia Genitourinary: no CVA tenderness Musculoskeletal: normal inspection, back normal, normal range of motion Neurologic: responsive, motor weakness Psychiatric: normal inspection, mood/affect normal Skin: no rash Medical Decision Making Diagnostic Impression: Primary Impression: Aspiration pneumonitis ER Course Patient present for shortness of breath. Differential included but was not limited to anemia, pneumonia, pneumothorax, myocardial infarction, pericardial effusion, congestive heart failure, acidosis. Because of complexity of patient' s case laboratory tests and imaging studies were ordered. Patient was given breathing treatments due to some wheezing. She was noted to have some crackles on exam. Chest x-ray one view interpreted by me showed increased right lower lung markings compared to prior x-ray. This is concerning for possible aspiration. Patient was given IV antibiotics after blood cultures were obtained. Dr. Jamin Cameron was contacted for inpatient management due to continued respiratory difficulty. Patient was noted to be DNR Labs Test 02/01/19 12:50 02/01/19 13:57 02/01/19 14:40 White Blood Count 6.0 K/UL (4.8-10.8) Red Blood Count 4.25 M/UL (4.20-5.40) Hemoglobin 14.2 G/DL (12.0-16.0) Hematocrit 42.5 % (37.0-47.0) Mean Corpuscular Volume 100 FL (80-99) Mean Corpuscular Hemoglobin 33.3 PG (27.0-31.0) Mean Corpuscular Hemoglobin Concent 33.3 G/DL (32.0-36.0) Red Cell Distribution Width 12.1 % (11.6-14.8) Platelet Count 156 K/UL (150-450) Mean Platelet Volume 6.1 FL (6.5-10.1) Neutrophils (%) (Auto) 62.7 % (45.0-75.0) Lymphocytes (%) (Auto) 27.9 % (20.0-45.0) Monocytes (%) (Auto) 8.6 % (1.0-10.0) Eosinophils (%) (Auto) 0.0 % (0.0-3.0) Basophils (%) (Auto) 0.9 % (0.0-2.0) Sodium Level 137 MMOL/L (136-145) Potassium Level 4.4 MMOL/L (3.5-5.1) Chloride Level 102 MMOL/L (98-107) Carbon Dioxide Level 26 MMOL/L (21-32) Anion Gap 9 mmol/L (5-15) Blood Urea Nitrogen 13 mg/dL (7-18) Creatinine 0.7 MG/DL (0.55-1.30) Estimat Glomerular Filtration Rate mL/min (>60) Glucose Level 122 MG/DL (74-106) Calcium Level 8.6 MG/DL (8.5-10.1) Total Bilirubin 0.3 MG/DL (0.2-1.0) Aspartate Amino Transf (AST/SGOT) 35 U/L (15-37) Alanine Aminotransferase (ALT/SGPT) 18 U/L (12-78) Alkaline Phosphatase 78 U/L (46-116) Troponin I 0.000 ng/mL (0.000-0.056) Pro-B-Type Natriuretic Peptide 972 pg/mL (0-125) Total Protein 7.5 G/DL (6.4-8.2) Albumin 3.0 G/DL (3.4-5.0) Globulin 4.5 g/dL Albumin/Globulin Ratio 0.7 (1.0-2.7) Lipase 500 U/L (73-393) Urine Color Pale yellow Urine Appearance Clear Urine pH 6 (4.5-8.0) Urine Specific [place] 1.010 (1.005-1.035) Urine Protein Negative (NEGATIVE) Urine Glucose (UA) Negative (NEGATIVE) Urine Ketones Negative (NEGATIVE) Urine Blood 5+ (NEGATIVE) Urine Nitrite Negative (NEGATIVE) Urine Bilirubin Negative (NEGATIVE) Urine Urobilinogen Normal MG/DL (0.0-1.0) Urine Leukocyte Esterase Negative (NEGATIVE) Urine RBC 30-40 /HPF (0 - 2) Urine WBC 0-2 /HPF (0 - 2) Urine Squamous Epithelial Cells Few /LPF (NONE/OCC) Urine Bacteria Few /HPF (NONE) Lactic Acid Level 1.70 mmol/L (0.66-2.22) EKG Diagnostic Results Rate: normal Rhythm: NSR ST Segments: no acute changes Last Vital Signs Date Time Temp Pulse Resp B/P (MAP) Pulse Ox O2 Delivery O2 Flow Rate FiO2 02/01/19 13:38 89 22 99 Room Air 21 87 18 96 02/01/19 12:39 98.1 137/68 (91) Status: unchanged Disposition: ADMITTED INPATIENT Condition: Serious Referrals: Jamin Cameron MD (PCP) Danish Hampton MD Feb 01, 2019 13:57
[2019-02-01 14:00] VITALS: BP 112/53
[2019-02-01 14:07] LABS: ALANINE AMINOTRANSFERASE 18 U/L (12-78); ALBUMIN/GLOBULIN RATIO 0.7 (1.0-2.7); ALKALINE PHOSPHATASE 78 U/L (46-116); ASPARTATE AMINO TRANSFERASE 35 U/L (15-37); BILIRUBIN,TOTAL 0.3 MG/DL (0.2-1.0)
[2019-02-01 14:27] LABS: APPEARANCE,URINE CLEAR; BILIRUBIN, URINE NEGATIVE (NEGATIVE); COLOR,URINE PALE YELLOW; GLUCOSE, URINE (UA) NEGATIVE (NEGATIVE); KETONES,URINE NEGATIVE (NEGATIVE); LEUKOCYTE ESTERASE ,URINE NEGATIVE (NEGATIVE); NITRITE,URINE NEGATIVE (NEGATIVE); PH,URINE 6 (4.5-8.0); PROTEIN,URINE NEGATIVE (NEGATIVE); UROBILINOGEN,URINE NORMAL MG/DL (0.0-1.0)
--- NOTE | 2019-02-01 14:27 | Diagnostic Imaging Report ---
Indication: Cough Technique: One view of the chest Comparison: 05/05/2018 Findings: Calcified nodular opacities again project at both lung bases. Lungs and pleural spaces are otherwise clear. The heart size is normal. The aorta is tortuous calcified and ectatic. Findings are unchanged Impression: No acute process
--- NOTE | 2019-02-01 14:29 | NUR ---
ED Nurse Note: pt with admission swabs sent as per protocol. redness noted to coccyx and buttocks area. redness noted to left great toe.
--- NOTE | 2019-02-01 14:37 | NUR ---
ED Nurse Note: pictures scanned for pt chart
[2019-02-01 15:00] VITALS: BP 105/53
--- NOTE | 2019-02-01 15:01 | NUR ---
ED Nurse Note: lactic reflex sent
[2019-02-01] MEDS ORDERED: ADVAIR 250-501 EACH INH (15:13)
[2019-02-01] MEDS ORDERED: CELEXA20 MG ORAL (15:13)
[2019-02-01] MEDS ORDERED: ARICEPT10 MG ORAL (15:13)
[2019-02-01] MEDS ORDERED: COMBIVENT RESPIM4 GM IH (15:14)
[2019-02-01] MEDS ORDERED: MIRALAX17 G2 ORAL (15:14)
[2019-02-01] MEDS ORDERED: CRANBERRY500 M4 PO (15:16)
[2019-02-01] MEDS ORDERED: REFRESH TEARS15 ML BOTH EYES (15:16)
--- NOTE | 2019-02-01 15:28 | NUR ---
ED Nurse Note: report given pt prepared to go to tele unit with rn/acls. belongings list done
--- NOTE | 2019-02-01 16:00 | NUR ---
NURSE NOTES: Pt transferred from ED via [facility] with ED RN and pharmacy technologist and a private care aid from her facility. Awake and confused. Able to understand the simple direction. Incontinent x2. Noted sacral stage 2 pressure ulcers and stage [address] gil made aware. Bed side rails x3 up for safety. No acute distress noted. IV site in right hand 22G SL patent and asymptomatic. No c/o pain at this time. Will continue to plan of care.
[2019-02-01 16:05] VITALS: BP 115/76
--- NOTE | 2019-02-01 16:58 | History & Physical ---
History and Physical History & Physicial Date of Admission: February 01, 2019. Patient Identification: Ms. Velázquez is an 83 y/o old woman, with congestion, cough, lethargy, and fever. Patient developed vomiting 2 days ago x 1, with subsequent congestion, intermittent fever, and a transient episode of hypotension at her [facility]. Recurrent fever and congestion developed. In office today, patient had elevated respiratory rate, coarse breath sounds, and wheezing , with an oxygen saturation of 93%. Patient was sent to the emergency room for further evaluation. Based on equivocal CXR abnormalities, persistent rhonchi and wheezing despite bronchodilator therapy, elevated lactate, and fever, patient was admitted to telemetry for further evaluation and treatment. History of Present Illness: Ms. Velázquez is a functionally debilitated woman, requiring care and all activities of daily living, who is under conservatorship and resides in an [facility]. She is bed and chair bound requiring total assist for transfers. After a left hip fracture treated in October 2016, she has been functionally relatively stable at the facility. Because of excessive verbalizations which are unintelligible, various interventions have been tried including the use of headphones with musical stimulation, visual stimulation, and various medications. Eventually her Seroquel dosing was increased slightly and the patient did quite well. There has been a long history of episodic regurgitation after meals which have not had significant clinical sequelae. However because of what appeared to be an element of dysphagia with occasional postprandial coughing, Ms. Velázquez was placed on a pured diet with nectar thick liquids. A f despite the patient's ew days ago she experienced an episode of vomiting as described above and has had intermittent and recurrent symptoms as described. In the emergency department after initial treatment with bronchodilator therapy she continued to increase it to exhibit significant rhonchi, congestion, and wheezing, as well as the fever and laboratory abnormalities. She is admitted for stabilization to telemetry. In the office the patient had been noted to have a significant congestion, rhonchi, and wheezing, with some increased lethargy from her baseline, and some drooling. In the emergency department after initial treatment she appeared to become somewhat more alert but continued to have respiratory symptoms. On the floor, her status appears approximately the same. Ms. Velázquez is unable to communicate her symptoms. Her clinical changes are as described above per the staff and information systems administrator of her facility. Past Medical History: 1. Advanced dementia with behavioral changes including agitation and paranoia, well controlled on low dose of antipsychotic therapy and antidepressant. 2. Major depressive disorder. 3. Chronic obstructive lung disease with bronchospasm. 4. Prior history of diabetes, not currently requiring medication treatment. 5. Hypothyroidism. 6. Hyperlipidemia. 7. History of peripheral edema. 8. Degenerative joint disease. 9. History of atrial fibrillation. 10. Recurrent dysphagia with episodic postprandial coughing resulting in use of a pureed diet. 11. History of right hip and gluteal cellulitis with deep necrosis, status post debridement healed. 12. Status post left intertrochanteric hip fracture status post hemiarthroplasty. 13. History of prior right arm fracture. 14. Status post cataract surgery. 15. Gait disorder with immobility and limited transfer ability. 16. Episodic urinary tract infections. Medications: 1. Aricept 10 mg nightly. 2. Advair Diskus 250/50 1 puff twice daily. 3. Celexa 20 mg daily. 4. Combivent Respimat 20/102 puffs 3 times daily as needed wheezing. 5. Docusate 100 mg twice daily. 6. MiraLAX 1 scoop daily. 7. Multivitamin daily. 8. Lasix 20 mg daily. 9. Seroquel 12.5 mg every morning and q. noon 25 mg nightly. 10. Synthroid 50 mcg daily. 11. Omeprazole 20 mg daily. 12. Vitamin D 2000 units daily. 13. Cranberry extract 500 mg daily. 14. Refresh Tears 1 drop OU 4 times daily as needed irritation. Allergies: NKDA. Social History: Born in [place]. [employer]ing [employer] for [email or web address]. Single, no children. Under conservatorship because of psychiatric issues. Residing at [facility] since August 2012. Vague nonspecific smoking history, not active for years. Family History: Unknown. Review of Systems: Unable to respond coherently. Physical Examination: Blood pressure 112/53, heart rate 87 and regular, respiratory rate 29, temperature 101.4 rectally, oxygen saturation 93% on room air. Generally: Well-developed, well-nourished, chronically ill-appearing woman, mildly lethargic compared to baseline, with tachypnea, but no overt physical distress. Head/Neck: Normocephalic, atraumatic skull. Sclera and conjunctiva pale without injection. Oropharynx dry. Neck with normal range of motion and no masses. Chest: Coarse breath sounds with rhonchi and wheezing. Cardiac: Regular rhythm with systolic murmur. Abdomen: Normal bowel sounds, soft, nontender, without masses or organomegaly appreciated. No definite suprapubic tenderness or dullness is noted. Extremities: Without edema or cords. Right hallux periungual irritation with slight discharge noted. Skin: Sacral and buttock redness with small erosion, left heel redness. Neurologic: Mental status mildly lethargic but patient continues to verbalize with garbled, unintelligible responses. No definite new focality but patient is unable to follow instructions. Laboratory Data: White count 6.0, hematocrit 42.5%, MCV 100, platelet count 156, with no left shift on differential. Sodium 137, potassium 4.4, chloride 102, bicarb 26, BUN 13, creatinine 0.7, glucose 122, initial lactate 2.6 decreasing to 1.7 on repeat , calcium 8.6, total bili 0.3, AST 35, ALT 18, alkaline phosphatase 78, troponin 0 0.000, proBNP 972, total protein 7.5, albumin 3.0, lipase 500. Urinalysis with 5+ blood, 30-40 RBCs, 0-2 WBCs, few bacteria. Chest x-ray: Calcified nodular opacities at both lung bases with no other evidence of acute process. Impression/Plan: 1. Ms. Velázquez presents with fever, congestion, wheezing, and lethargy, after an episode of vomiting raising the suspicion of an aspiration event. The lack of peripheral leukocytosis or left shift makes a chemical pneumonitis somewhat more likely, but the patient also presented with an elevated lactate, raising suspicion for a septic episode, or at least a hypoperfusion event. Whether this is a chemical event, or bacterial pathology, given the patient's history of chronic obstructive lung disease and frail status, a secondary bacterial pneumonitis certainly is a significant risk. Patient was started on Zosyn and metronidazole in the emergency department, Zosyn will be continued as empirical coverage pending further laboratory data and clinical course. Bronchodilator therapy and a single dose of Solu-Medrol 60 mg will be given initially, with titration depending on the patient's clinical response. Other potential etiologies would include a viral syndrome, a bronchitic episode, or a COPD exacerbation. 2. Despite having a mildly elevated proBNP, the patient appears clinically to be volume depleted. She was given intravenous fluids in the emergency department. Additional intravenous fluids will not be ordered at this time, but the routine Lasix will be discontinued. 3. Despite the history of clinical dysphagia, the patient has done well with feeding of pured diet with nectar thick liquids. Speech therapy will be obtained to evaluate the patient, but discussion with the patient's conservatorship employee representative, Quin Lea, confirms that enteral feeding is to be avoided. 4. Wound consultation is been requested to assist with the patient's skin lesions. 5. The patient's DNR and DNI status was reviewed with the conservatorship employee representative and confirmed. Additional diagnostic and therapeutic interventions will be considered depending on the patient's initial response to therapy and further laboratory studies. Jamin Cameron MD Feb 01, 2019 16:58
[2019-02-01] MEDS ORDERED: Miralax 17gm pkt ORAL PRN (18:00)
[2019-02-01] MEDS: Wixela 250/50 Inhaler - 60 dose INH SCH (18:00)
[2019-02-01] MEDS: Docusate 100mg cap ORAL SCH (18:18)
[2019-02-01] MEDS: Solu-MEDROL 125mg Inj IVP SCH (18:18)
[2019-02-01] MEDS: Albuterol/Ipratropium 3ml neb HHN SCH (19:14)
--- NOTE | 2019-02-01 19:20 | NUR ---
HAND-OFF: Report given to Jessica AMEZCUA. Pt remains stable.
--- NOTE | 2019-02-01 19:42 | NUR ---
NURSE NOTES: received report from SEVEN Love, patient in stable condition, AOx1, denies pain at this time, right hand g 22, RT at bedside, bed lowest position, side rails upx3, call light within reach, will continue to monitor and reassess.
[2019-02-01 20:00] VITALS: BP 115/58
[2019-02-01] MEDS ORDERED: Heparin 5000 units/ml inj SUBQ SCH (21:00)
[2019-02-01] MEDS: Piperacillin/Tazobactam 3.375 GM in NS 110 ML IVPB SCH (21:43)
[2019-02-02] VITALS: BP 110/56
[2019-02-02] MEDS: Albuterol/Ipratropium 3ml neb HHN SCH ×4 (01:43→20:06)
[2019-02-02 04:00] VITALS: BP 109/67
[2019-02-02] MEDS: Piperacillin/Tazobactam 3.375 GM in NS 110 ML IVPB SCH ×3 (06:10→21:52)
--- NOTE | 2019-02-02 07:20 | NUR ---
HAND-OFF: Report given to SEVEN KING, patient in stable condition, plan of care endorsed.
[2019-02-02 07:23] LABS: BASOPHILS % (AUTO) 0.1 % (0.0-2.0); HEMATOCRIT 36.6 % (37.0-47.0); HEMOGLOBIN 12.4 G/DL (12.0-16.0); LYMPHOCYTES % (AUTO) 14.9 % (20.0-45.0); MEAN CORPUSCULAR VOLUME 98 FL (80-99); MONOCYTES % (AUTO) 3.2 % (1.0-10.0); NEUTROPHILS % (AUTO) 81.7 % (45.0-75.0); PLATELET COUNT 153 K/UL (150-450); RED BLOOD COUNT 3.72 M/UL (4.20-5.40); RED CELL DISTRIBUTION WIDTH 11.9 % (11.6-14.8); WHITE BLOOD COUNT 4.5 K/UL (4.8-10.8)
--- NOTE | 2019-02-02 07:30 | NUR ---
NURSE NOTES: pt in bed and awake, pt Aox0 she does not answer any question. Pt on press tender no signs of cardiac or respiratory distress at this time. Pt was fed by private sitter. Bed is in lowest position and locked. Call light is within reach of pt. Will continue to monitor labs and follow care plan.
[2019-02-02 07:33] LABS: ALANINE AMINOTRANSFERASE 161 U/L (12-78); ALBUMIN 2.8 G/DL (3.4-5.0); ALBUMIN/GLOBULIN RATIO 0.7 (1.0-2.7); ALKALINE PHOSPHATASE 188 U/L (46-116); ANION GAP 11 mmol/L (5-15); ASPARTATE AMINO TRANSFERASE 250 U/L (15-37); BILIRUBIN,TOTAL 0.3 MG/DL (0.2-1.0); BLOOD UREA NITROGEN 11 mg/dL (7-18); CALCIUM 8.7 MG/DL (8.5-10.1); CARBON DIOXIDE 26 MMOL/L (21-32); CHLORIDE 109 MMOL/L (98-107); CREATININE 0.8 MG/DL (0.55-1.30); POTASSIUM 3.6 MMOL/L (3.5-5.1); SODIUM 146 MMOL/L (136-145)
[2019-02-02 08:00] VITALS: BP 122/60
[2019-02-02] MEDS: Wixela 250/50 Inhaler - 60 dose INH SCH ×2 (08:20→20:06)
[2019-02-02] MEDS: Solu-MEDROL 125mg Inj IVP SCH (11:11)
[2019-02-02] MEDS: Docusate 100mg cap ORAL SCH ×2 (11:12→18:17)
[2019-02-02] MEDS: Citalopram Hydrobromide 10mg Tab ORAL SCH (11:12)
--- NOTE | 2019-02-02 11:38 | NUR ---
CASE MANAGEMENT:REVIEW 83YR OLD FEMALE BIBA FROM [facility]ISTED [facility]IV[facility] CC: SOB. INFECTED BIG TOE. POSSIBLE PNA. COUGH, LETHARGY AND FEVER FOUND TO BE WHEEZING IN MD'S OFFICE SI:ASPIRATION PNEUMONITIS 101.4 86 22 137/68 97% ON RA GLUCOSE+122 LIPASE+500 IS: DUONEB HHN IV ZOSYN IV FLAGYL 1L NS BOLUS BLOOD CX CHEST XRAY : TO TELEMETRY
--- NOTE | 2019-02-02 11:38 | Geriatric Progress Note ---
Assessment/Plan Problems: (1) Elevated LFTs (2) Elevated lipase (3) Hypothyroid (4) Dementia with behavioral disturbance (5) Aspiration pneumonitis Assessment/Plan Clinically improved, with less respiratory congestion, improved oxygen saturations, improved alertness and responsiveness. Concern that elevated LFTs and lipase represent occult disease. Abd u/s ordered , Dr. Clark to evaluate. IVF when NPO. Discussed with Speech Therapy. Continue other treatment. Recheck labs. Discussed with: patient, hospital staff, other - personal dial printer Subjective Interval Events Patient more alert, interactive. Mild residual congestion noted. Caregiver reports patient ate breakfast well with slow hand feeding. No overt distress. Of note is significant elevation of lipase, mild elevation of AP, heaptocellular enzymes. Discussed wound issues with wound care nurse. Subjective No comprehensible responses. Geriatric Geriatric Last 24 Hour Vital Signs Date Time Temp Pulse Resp B/P (MAP) Pulse Ox O2 Delivery O2 Flow Rate FiO2 02/02/19 08:15 81 18 100 Room Air 21 80 18 100 02/02/19 04:39 67 02/02/19 04:00 97.8 86 19 109/67 (81) 96 02/02/19 01:44 62 18 99 Room Air 21 59 18 95 02/02/19 00:00 68 02/02/19 00:00 98.4 67 19 110/56 (74) 95 02/01/19 21:00 Nasal Cannula 2.0 02/01/19 20:00 98.1 82 20 115/58 (77) 92 02/01/19 20:00 67 02/01/19 19:23 74 18 94 Room Air 21 02/01/19 19:15 76 18 97 Room Air 21 74 18 94 02/01/19 16:44 82 02/01/19 16:31 Room Air 02/01/19 16:05 98.0 86 20 115/76 (89) 95 02/01/19 15:26 88 29 105/53 99 Room Air 02/01/19 15:00 88 29 105/53 99 Room Air 02/01/19 14:00 101.4 87 29 112/53 93 Room Air 02/01/19 13:38 89 22 99 Room Air 21 87 18 96 02/01/19 13:08 Room Air 02/01/19 13:00 84 29 137/60 97 Room Air 02/01/19 12:39 98.1 86 22 137/68 (91) 97 Room Air Intake and Output 02/01/19 02/02/19 18:59 06:59 Intake Total 1210 ml Balance 1210 ml Intake Oral 0 ml IV Total 1210 ml # Voids 2 3 # Bowel Movements 2 Laboratory Tests Test 02/01/19 12:50 02/01/19 13:57 02/01/19 14:40 02/02/19 05:52 White Blood Count 6.0 K/UL (4.8-10.8) 4.5 K/UL (4.8-10.8) L Red Blood Count 4.25 M/UL (4.20-5.40) 3.72 M/UL (4.20-5.40) L Hemoglobin 14.2 G/DL (12.0-16.0) 12.4 G/DL (12.0-16.0) Hematocrit 42.5 % (37.0-47.0) 36.6 % (37.0-47.0) L Mean Corpuscular Volume 100 FL (80-99) H 98 FL (80-99) Mean Corpuscular Hemoglobin 33.3 PG (27.0-31.0) H 33.3 PG (27.0-31.0) H Mean Corpuscular Hemoglobin Concent 33.3 G/DL (32.0-36.0) 33.8 G/DL (32.0-36.0) Red Cell Distribution Width 12.1 % (11.6-14.8) 11.9 % (11.6-14.8) Platelet Count 156 K/UL (150-450) 153 K/UL (150-450) Mean Platelet Volume 6.1 FL (6.5-10.1) L 6.0 FL (6.5-10.1) L Neutrophils (%) (Auto) 62.7 % (45.0-75.0) 81.7 % (45.0-75.0) H Lymphocytes (%) (Auto) 27.9 % (20.0-45.0) 14.9 % (20.0-45.0) L Monocytes (%) (Auto) 8.6 % (1.0-10.0) 3.2 % (1.0-10.0) Eosinophils (%) (Auto) 0.0 % (0.0-3.0) 0.0 % (0.0-3.0) Basophils (%) (Auto) 0.9 % (0.0-2.0) 0.1 % (0.0-2.0) Sodium Level 137 MMOL/L (136-145) 146 MMOL/L (136-145) H Potassium Level 4.4 MMOL/L (3.5-5.1) 3.6 MMOL/L (3.5-5.1) Chloride Level 102 MMOL/L (98-107) 109 MMOL/L (98-107) H Carbon Dioxide Level 26 MMOL/L (21-32) 26 MMOL/L (21-32) Anion Gap 9 mmol/L (5-15) 11 mmol/L (5-15) Blood Urea Nitrogen 13 mg/dL (7-18) 11 mg/dL (7-18) Creatinine 0.7 MG/DL (0.55-1.30) 0.8 MG/DL (0.55-1.30) Estimat Glomerular Filtration Rate mL/min (>60) mL/min (>60) Glucose Level 122 MG/DL (74-106) H 148 MG/DL (74-106) H Lactic Acid Level 2.60 mmol/L (0.4-2.0) H 1.70 mmol/L (0.66-2.22) Calcium Level 8.6 MG/DL (8.5-10.1) 8.7 MG/DL (8.5-10.1) Total Bilirubin 0.3 MG/DL (0.2-1.0) 0.3 MG/DL (0.2-1.0) Aspartate Amino Transf (AST/SGOT) 35 U/L (15-37) 250 U/L (15-37) H Alanine Aminotransferase (ALT/SGPT) 18 U/L (12-78) 161 U/L (12-78) H Alkaline Phosphatase 78 U/L (46-116) 188 U/L (46-116) H Troponin I 0.000 ng/mL (0.000-0.056) Pro-B-Type Natriuretic Peptide 972 pg/mL (0-125) H Total Protein 7.5 G/DL (6.4-8.2) 7.0 G/DL (6.4-8.2) Albumin 3.0 G/DL (3.4-5.0) L 2.8 G/DL (3.4-5.0) L Globulin 4.5 g/dL 4.2 g/dL Albumin/Globulin Ratio 0.7 (1.0-2.7) L 0.7 (1.0-2.7) L Lipase 500 U/L (73-393) H > 2000 U/L (73-393) H Urine Color Pale yellow Urine Appearance Clear Urine pH 6 (4.5-8.0) Urine Specific [place] 1.010 (1.005-1.035) Urine Protein Negative (NEGATIVE) Urine Glucose (UA) Negative (NEGATIVE) Urine Ketones Negative (NEGATIVE) Urine Blood 5+ (NEGATIVE) H Urine Nitrite Negative (NEGATIVE) Urine Bilirubin Negative (NEGATIVE) Urine Urobilinogen Normal MG/DL (0.0-1.0) Urine Leukocyte Esterase Negative (NEGATIVE) Urine RBC 30-40 /HPF (0 - 2) H Urine WBC 0-2 /HPF (0 - 2) Urine Squamous Epithelial Cells Few /LPF (NONE/OCC) Urine Bacteria Few /HPF (NONE) Current Medications Medications (Trade) Dose Ordered Sig/Hitesh Route PRN Reason Start Time Stop Time Status Last Admin Dose Admin Albuterol/ Ipratropium (Albuterol/ Ipratropium) 3 ml Q6HRT HHN 02/01/19 19:00 02/06/19 18:59 02/02/19 08:17 Citalopram Hydrobromide (celeXA) 20 mg DAILY ORAL 02/02/19 09:00 03/04/19 08:59 Dextrose (Dextrose 50%) 25 ml Q30M PRN IV Hypoglycemia 02/01/19 18:00 03/03/19 17:59 Dextrose (Dextrose 50%) 50 ml Q30M PRN IV Hypoglycemia 02/01/19 18:00 03/03/19 17:59 Docusate Sodium (Colace) 100 mg TWICE A DAY ORAL 02/01/19 18:00 03/03/19 17:59 02/01/19 18:18 Levothyroxine Sodium (Synthroid) 50 mcg DAILY@0630 ORAL 02/02/19 06:30 03/04/19 06:29 02/02/19 06:12 Methylprednisolone Sodium Succinate (Solu-MEDROL) 60 mg DAILY IVP 02/01/19 18:00 03/03/19 17:59 02/01/19 18:18 Pantoprazole (Protonix) 40 mg ACBREAKFAST ORAL 02/02/19 06:30 03/04/19 06:29 02/02/19 06:12 Piperacillin Sod/ Tazobactam Sod 3.375 gm/Sodium Chloride 110 ml @ 27.5 mls/hr EVERY 8 HOURS IVPB 02/01/19 22:00 02/06/19 21:59 02/02/19 06:10 Polyethylene Glycol (Miralax) 17 gm DAILY PRN ORAL Constipation 02/01/19 18:00 03/03/19 17:59 Quetiapine Fumarate (SEROquel) 12.5 mg ACBREAKFAST ORAL 02/02/19 06:30 03/04/19 06:29 02/02/19 06:12 Quetiapine Fumarate (SEROquel) 12.5 mg QLUNCH ORAL 02/02/19 11:30 03/04/19 11:29 Quetiapine Fumarate (SEROquel) 25 mg QHS ORAL 02/01/19 21:00 03/03/19 20:59 02/01/19 22:28 Salmeterol Xinafoate/ Fluticasone (Advair 250/50 Diskus) 1 puffs BID INH 02/01/19 18:00 03/03/19 17:59 Height (Feet): 5 Height (Inches): 3.00 Weight (Pounds): 134 General Appearance: no apparent distress, alert, non-toxic Head: normocephalic, atraumatic Eyes: bilateral anicteric ENT: normal voice Neck: full range of motion, no mass Respiratory: no wheezing, rhonchi Cardiovascular: regular rate, rhythm Gastrointestinal: normal bowel sounds, non tender, no mass, no organomegaly, non-distended, no guarding Musculoskeletal: no calf tenderness Edema: no edema noted Generalized Neurologic: no new focality Skin: wounds - as per wound documentation. Jamin Cameron MD Feb 02, 2019 11:38
[2019-02-02 12:00] VITALS: BP 123/56
--- NOTE | 2019-02-02 12:02 | NUR ---
SWALLOW AND SPEECH THERAPY NOTE: REFERRED FOR SWALLOW EVALUATION BY DR RO, SEE FULL REPORT TO FOLLOW. DYSPHAGIA RISK FACTORS FOR THIS 83 Y.O. 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 PER POLST: ARTIFICIAL NUTRITION ONLY FOR TRIAL PERIOD IF NEEDS. PER DR RO, THE PATIENT IS LIVING IN ASSISTED LIVING AND HAS BEEN ON PUREED AND NECTAR THICK LIQUIDS FOR A LONG TIME. NOT SEEN BY DIESEL ENGINE SPECIALIST PRIOR VISITS. CURRENTLY SHE IS ON A PUREED AND NECTAR THICK LIQUID DIET WITH SLOW INTAKE (ONE HOUR PER CG) BUT GOOD INTAKE 100% YESTERDAY FOR DINNER. PER SEVEN KING, PT COUGHS WHEN CRUSHED AND ADDED TO NECTAR THICK LIQUIDS BUT GIVEN WITH SYRINGE, DIESEL ENGINE SPECIALIST ADVISED WITH TSP FOR NOW. ALERT BUT POOR FOLLOWING ORAL COMMANDS AND NONVERBAL (VOCALIZES ONLY). NO DENTITION AND DENTURES LOOSE SO CG TOLD TO LEAVE THEM OUT. 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 SOMETIMES HAS AN EXTRA SWALLOW. GIVEN PUREED TAKES LONGER 7 SECONDS AND COUGHED AFTER THE SWALLOW. HOLD ON MASTICATED SOLIDS FOR NOW. HAS HIGH SILENT ASPIRATION RISK DUE TO DEMENTIA HX INCREASED RESP RATE TO 21 (AFTER 5 SWALLOWS ON ROOM AIR AND MOUTH IS OPEN AT REST AT TIMES) GOES DOWN IF RESTS. RECOMMENDATIONS: COMPLETE MODIFIED BARIUM SWALLOW STUDY IP OR OP IF DC TO FURTHER ASSESS SWALLOW,DETERMINE SILENT ASP RISK , AND ATTEMPT TRIAL TX IF PO CONTINUES FOR QUALITY OF LIFE, CONTINUE WITH PO (AFTER ULTRASOUND) BUT DOWNGRADE TO LIQUIFIED PUREED LIKE NECTAR THICK SOUP CONSISTENCY (MORE EFFICIENT) NO THIN LIQUIDS USE TSP AND OTHER POSTED ASPIRATION AND REFLUX PRECAUTIONS AND ONE TO ONE FEEDING. SEND [place] SUP PER RD SKILLED DYSPHAGIA MANAGEMENT AND TX AND COG-COM EVAL/TX FOR COMMUNICATION TIPS. EDUCATED/TRAINED EMEKA KING AND CG KEV IN POSTED PRECAUTIONS
[2019-02-02] MEDS: D5 1/2NS w/KCl 20mEq 1,000 ML IV SCH (14:03)
--- NOTE | 2019-02-02 15:01 | NUR ---
NURSE NOTES:WOUND CARE NOTES: Pt presented on admission with multiple pressure injuries. Large irregular shaped DTPI sacrum. Base of wound is maroon with purple area at sacrococcygeal. Pt flinches when area minimally palpated.(L)4.3cm x (W)11cm. DTPI noted to L buttocks. Base of wound is maroon and indurated. Site is also tender when minimally palpated.(L)2.8cm x (W)7cm. Erythema noted to perineum. Both heels are boggy with non-blanchable erythema. Pt verbalized tenderness when each heel individually palpated. L st metatarsal noted to be swollen, erythematous with dry scabbed area along cuticle of nail. No exudate noted presently. Per pt previously had purulent exudate. made aware no exudate noted at present. Tx.Plan: Apply Triad Paste to Sacral area and L buttocks.Cover with Optifoam drsg. Change every 3 days and prn. Apply Triad Paste to perineum with each incontinence care. Apply Betadine to L 1st metatarsal daily. Apply Cavilon Skin Barrier to both heels. Cover each heel with Optifoam drsg. Change every 7 days and prn. APM/ADILENE mattress overlay. Reposition at least every 2hours or as tolerated. Off-load heels with pillow. Place pillow between knees.
--- NOTE | 2019-02-02 15:55 | Diagnostic Imaging Report ---
Indication: Abdominal pain, elevated LFTs Technique: Multiplanar grayscale and duplex Doppler imaging of the abdomen Comparison: None Findings: Technically difficult exam due to patient body habitus and inability to cooperate with exam positioning. Imaged portions of the abdominal aorta normal in caliber. Pancreatic head is grossly unremarkable in appearance. Liver is normal in size. Hepatic contour appears smooth. No definite focal hepatic mass lesion is appreciated sonographically. Imaged hepatic veins and portal veins appear patent. The gallbladder is not visualized and may be surgically absent. There is dilatation of the common bile duct to 10 mm favored to be related to postcholecystectomy state. No discrete choledocholithiasis is identified. Right kidney measures 8.9 cm in length. Left kidney measures 9.6 cm in length. There is no evidence of hydronephrosis. No sonographically appreciable renal stone. Question mild increased echogenicity. Spleen is normal in size. No ascites demonstrated. IMPRESSION: Technically difficult exam due to patient body habitus and inability to cooperate with exam positioning. Pancreas poorly evaluated. Gallbladder not visualized and may be surgically absent. Correlate with surgical history. Dilatation of the common bile duct to 10 mm. This may be related to postcholecystectomy state. Correlation with liver function tests is recommended. Further imaging with MRCP may be obtained as clinically indicated. Question mild increased renal echogenicity. Correlation with renal function tests recommended.
[2019-02-02 16:00] VITALS: BP 116/56
--- NOTE | 2019-02-02 16:15 | Consultation ---
History of Present Illness General Date patient seen: Feb 02, 2019 Reason for Hospitalization: Dyspnea/Respdistress Present Illness HPI This is a very pleasant 83-year-old female with multiple medical committees who is a care facility patient that had some respiratory difficulty and shortness of breath recently and was referred to [facility] for further evaluation at which time patient was admitted for medical management and care. On admission identified to have abnormal labs, elevated lipase, worsening LFTs since admission, and skin concerns. Surgery was called to evaluate and assist with care. Patient seen, patient [place], chart reviewed Allergies: Coded Allergies: NO KNOWN ALLERGIES (Unverified Allergy, Unknown, 09/09/16) Medication History Scheduled Carboxymethylcellulose Sodium (Refresh Tears), 1 ML OP EVERY 6 HOURS, (Reported) Celecoxib* (Celebrex*), 200 MG ORAL DAILY Cholecalciferol (Vitamin D3)* (Vitamin D*), 2,000 INTLU ORAL DAILY Cholecalciferol (Vitamin D3)* (Vitamin D*), 2,000 UNITS ORAL DAILY, (Reported) Citalopram Hydrobromide (Celexa), 20 MG ORAL DAILY, (Reported) Citalopram Hydrobromide* (Celexa*), 10 MG ORAL DAILY Citalopram Hydrobromide* (Celexa*), 20 MG ORAL DAILY, (Reported) Cranberry (Cranberry), 400 MG PO DAILY Cranberry Extract (Cranberry), 500 MG PO DAILY, (Reported) Dextran 70/Hypromellose (Artificial Tears Eye Drops*), 1 DROP BOTH EYES TID Docusate Sodium (Docusate Sodium), 100 MG ORAL TWICE A DAY, (Reported) Donepezil Hcl (Aricept), 10 MG ORAL BEDTIME, (Reported) Donepezil Hcl* (Donepezil Hcl*), 10 MG ORAL DAILY Donepezil Hcl* (Aricept*), 10 MG ORAL DAILY, (Reported) Donepezil Hcl* (Aricept*), 10 MG ORAL QHS, (Reported) Enoxaparin* (Lovenox*), 30 MG SUBQ DAILY Fluticasone/Salmeterol (Advair 250-50 Diskus), 1 PUFFS INH EVERY 12 HOURS Fluticasone/Salmeterol (Advair 250-50 Diskus), 1 PUFF INH TWICE A DAY, (Reported ) Fluticasone/Salmeterol (Advair 250-50 Diskus), 1 PUFF INH EVERY 12 HOURS, ( Reported) Furosemide* (Lasix*), 20 MG ORAL DAILY, (Reported) Ipratropium/Albuterol Sulfate (DuoNeb 0.5-3(2.5)mg/3ml), 3 ML HHN Q6HRT Ipratropium/Albuterol Sulfate (Combivent Respimat Inhal [place]), 20-100 MCG IH THREE TIMES A DAY, (Reported) Ipratropium/Albuterol Sulfate (Combivent Respimat Inhal [place]), 20-100 MCG IH THREE TIMES A DAY, (Reported) Ipratropium/Albuterol Sulfate (Combivent Respimat Inhal [place]), 2 PUFFS IH THREE TIMES A DAY, (Reported) Levothyroxine Sodium (Synthroid), 50 MCG ORAL ACBREAKFAST Levothyroxine Sodium (Synthroid), 50 MCG ORAL DAILY, (Reported) Multivitamins* (Multivitamins*), 1 TAB ORAL DAILY Omeprazole (Omeprazole), 20 MG ORAL DAILY, (Reported) Pantoprazole* (Protonix*), 40 MG ORAL DAILY Polyethylene Glycol 3350* (Miralax*), 17 GM ORAL DAILY Polyethylene Glycol 3350* (Miralax*), 17 GM ORAL DAILY, (Reported) Polyethylene Glycol 3350* (Miralax*), 17 GM ORAL DAILY, (Reported) Quetiapine Fumarate* (Seroquel*), 12.5 MG ORAL BID Quetiapine Fumarate* (Seroquel*), 25 MG ORAL QHS, (Reported) Quetiapine Fumarate* (Seroquel*), 25 MG ORAL THREE TIMES A DAY, (Reported) Ramelteon (Rozerem), 8 MG ORAL QHS Scheduled PRN Acetaminophen* (Acetaminophen 325MG Tablet*), 650 MG ORAL Q4H PRN Hydrocodone Bit/Acetaminophen 5-325* (Almond 5-325*), 1 TAB ORAL Q4H PRN Magnesium Hydroxide (Milk of Magnesia), 30 ML ORAL DAILYPRN PRN Miscellaneous Medications Carboxymethylcellulose Sodium (Refresh Tears), 15 ML OP, (Reported) Patient History Limited by: medical condition History Provided By: Medical Record, PMD Healthcare decision maker Resuscitation status Do Not Intubate Advanced Directive on File Past Medical/Surgical History Past Medical/Surgical History: (1) Hyperlipemia (2) Major depression, chronic (3) Leukocytosis (4) Constipation (5) Hip fracture, left (6) Hip dislocation, left (7) Aspiration pneumonitis (8) Hypothyroid (9) Elevated LFTs (10) Dementia with behavioral disturbance (11) Elevated lipase Review of Systems Review of Symptoms unable to obtain given medical condition Physical Exam Physical Exam General appearance: alert, cooperative, no distress, appears stated age Head: Normocephalic, without obvious abnormality, atraumatic Eyes: conjunctivae/corneas clear. PERRL, EOM's intact. Fundi benign Throat: Lips, mucosa, and tongue normal. Teeth and gums normal Neck: supple, symmetrical, trachea midline, no adenopathy, thyroid: not enlarged, symmetric, no tenderness/mass/nodules, no carotid bruit and no JVD Lungs: clear to auscultation bilaterally Heart: regular rate and rhythm, S1, S2 normal, no murmur, click, rub or gallop Abdomen: soft, non-tender. Bowel sounds normal. No masses, no organomegaly Extremities: extremities normal, atraumatic, no cyanosis or edema Pulses: 2+ and symmetric Skin: Skin color, texture, turgor normal. No rashes or lesions Neurologic: Grossly normal Last 24 Hour Vital Signs Date Time Temp Pulse Resp B/P (MAP) Pulse Ox O2 Delivery O2 Flow Rate FiO2 02/02/19 12:35 76 18 97 Room Air 21 74 18 94 02/02/19 08:15 81 18 100 Room Air 21 80 18 100 02/02/19 04:39 67 02/02/19 04:00 97.8 86 19 109/67 (81) 96 02/02/19 01:44 62 18 99 Room Air 21 59 18 95 02/02/19 00:00 68 02/02/19 00:00 98.4 67 19 110/56 (74) 95 02/01/19 21:00 Nasal Cannula 2.0 02/01/19 20:00 98.1 82 20 115/58 (77) 92 02/01/19 20:00 67 02/01/19 19:23 74 18 94 Room Air 21 10/17/19 19:15 76 18 97 Room Air 21 74 18 94 02/01/19 16:44 82 02/01/19 16:31 Room Air Intake and Output 02/01/19 02/02/19 18:59 06:59 Intake Total 1210 ml Balance 1210 ml Intake Oral 0 ml IV Total 1210 ml # Voids 2 3 # Bowel Movements 2 Laboratory Tests Test 02/02/19 05:52 White Blood Count 4.5 K/UL (4.8-10.8) L Red Blood Count 3.72 M/UL (4.20-5.40) L Hemoglobin 12.4 G/DL (12.0-16.0) Hematocrit 36.6 % (37.0-47.0) L Mean Corpuscular Volume 98 FL (80-99) Mean Corpuscular Hemoglobin 33.3 PG (27.0-31.0) H Mean Corpuscular Hemoglobin Concent 33.8 G/DL (32.0-36.0) Red Cell Distribution Width 11.9 % (11.6-14.8) Platelet Count 153 K/UL (150-450) Mean Platelet Volume 6.0 FL (6.5-10.1) L Neutrophils (%) (Auto) 81.7 % (45.0-75.0) H Lymphocytes (%) (Auto) 14.9 % (20.0-45.0) L Monocytes (%) (Auto) 3.2 % (1.0-10.0) Eosinophils (%) (Auto) 0.0 % (0.0-3.0) Basophils (%) (Auto) 0.1 % (0.0-2.0) Sodium Level 146 MMOL/L (136-145) H Potassium Level 3.6 MMOL/L (3.5-5.1) Chloride Level 109 MMOL/L (98-107) H Carbon Dioxide Level 26 MMOL/L (21-32) Anion Gap 11 mmol/L (5-15) Blood Urea Nitrogen 11 mg/dL (7-18) Creatinine 0.8 MG/DL (0.55-1.30) Estimat Glomerular Filtration Rate mL/min (>60) Glucose Level 148 MG/DL (74-106) H Calcium Level 8.7 MG/DL (8.5-10.1) Total Bilirubin 0.3 MG/DL (0.2-1.0) Aspartate Amino Transf (AST/SGOT) 250 U/L (15-37) H Alanine Aminotransferase (ALT/SGPT) 161 U/L (12-78) H Alkaline Phosphatase 188 U/L (46-116) H Total Protein 7.0 G/DL (6.4-8.2) Albumin 2.8 G/DL (3.4-5.0) L Globulin 4.2 g/dL Albumin/Globulin Ratio 0.7 (1.0-2.7) L Lipase > 2000 U/L (73-393) H Height (Feet): 5 Height (Inches): 3.00 Weight (Pounds): 134 Medications Current Medications Medications (Trade) Dose Ordered Sig/Hitesh Route PRN Reason Start Time Stop Time Status Last Admin Dose Admin Albuterol/ Ipratropium (Albuterol/ Ipratropium) 3 ml Q6HRT HHN 02/01/19 19:00 02/06/19 18:59 02/02/19 12:37 Citalopram Hydrobromide (celeXA) 20 mg DAILY ORAL 02/02/19 09:00 03/04/19 08:59 02/02/19 11:12 Dextrose (Dextrose 50%) 25 ml Q30M PRN IV Hypoglycemia 02/01/19 18:00 03/03/19 17:59 Dextrose (Dextrose 50%) 50 ml Q30M PRN IV Hypoglycemia 02/01/19 18:00 03/03/19 17:59 Dextrose/ Electrolytes 1,000 ml @ 65 mls/hr [id number] IV 02/02/19 13:00 03/04/19 12:59 02/02/19 14:03 Docusate Sodium (Colace) 100 mg TWICE A DAY ORAL 02/01/19 18:00 03/03/19 17:59 02/02/19 11:12 Levothyroxine Sodium (Synthroid) 50 mcg DAILY@0630 ORAL 02/02/19 06:30 03/04/19 06:29 02/02/19 06:12 Methylprednisolone Sodium Succinate (Solu-MEDROL) 60 mg DAILY IVP 02/01/19 18:00 03/03/19 17:59 02/02/19 11:11 Pantoprazole (Protonix) 40 mg ACBREAKFAST ORAL 02/02/19 06:30 03/04/19 06:29 02/02/19 06:12 Piperacillin Sod/ Tazobactam Sod 3.375 gm/Sodium Chloride 110 ml @ 27.5 mls/hr EVERY 8 HOURS IVPB 02/01/19 22:00 02/06/19 21:59 02/02/19 14:09 Polyethylene Glycol (Miralax) 17 gm DAILY PRN ORAL Constipation 02/01/19 18:00 03/03/19 17:59 Quetiapine Fumarate (SEROquel) 12.5 mg ACBREAKFAST ORAL 02/02/19 06:30 03/04/19 06:29 02/02/19 06:12 Quetiapine Fumarate (SEROquel) 12.5 mg QLUNCH ORAL 02/02/19 11:30 03/04/19 11:29 02/02/19 11:28 Quetiapine Fumarate (SEROquel) 25 mg QHS ORAL 02/01/19 21:00 03/03/19 20:59 02/01/19 22:28 Salmeterol Xinafoate/ Fluticasone (Advair 250/50 Diskus) 1 puffs BID INH 02/01/19 18:00 03/03/19 17:59 Assessment/Plan Problem List: (1) Elevated LFTs Assessment & Plan: Patient admitted with normal LFTs but today significantly elevated. Pancreatitis worsening as well. Ultrasound pending Work-up for abnormal LFTs and pancreatitis pending will follow with recommendations 3 IV fluids Labs pending US results thank you ICD Codes: R94.5 - Abnormal results of liver function studies SNOMED: 112694680, [id number] (2) Elevated lipase ICD Codes: R74.8 - Abnormal levels of other serum enzymes SNOMED: 794667406 (3) Skin lesion Assessment & Plan: Pt presented on admission with multiple pressure injuries. Large irregular shaped erythema noted on lower back and sacrum. Base of wound is maroon with slight hint of purple area at sacrococcygeal. (L)4.3cm x (W)11cm. erythema noted to L buttocks. Base of wound is maroon. (L)2.8cm x (W)7cm. Erythema noted to perineum. Both heels are boggy with non-blanchable erythema. L st metatarsal noted to be swollen, erythematous with dry scabbed area along cuticle of nail. No exudate noted presently. Tx.Plan: Apply Triad Paste to Sacral area and L buttocks.Cover with Optifoam drsg. Change every 3 days and prn. Apply Triad Paste to perineum with each incontinence care. Apply Betadine to L 1st metatarsal daily. Apply Cavilon Skin Barrier to both heels. Cover each heel with Optifoam drsg. Change every 7 days and prn. APM/ADILENE mattress overlay. Reposition at least every 2hours or as tolerated. Off-load heels with pillow. Place pillow between knees. ICD Codes: L98.9 - Disorder of the skin and subcutaneous tissue, unspecified SNOMED: [id number] Bran Mims Feb 02, 2019 16:15
--- NOTE | 2019-02-02 19:41 | NUR ---
NURSE NOTES: Received report from SEVEN Sorensen, patient in stable condition, AOx1, denies pain at this time, right hand g 22, bed lowest position, side rails upx3, call light within reach, will continue to monitor and reassess.
[2019-02-02 20:00] VITALS: BP 125/63
[2019-02-03 00:47] VITALS: BP 125/64
[2019-02-03] MEDS: Albuterol/Ipratropium 3ml neb HHN SCH ×4 (01:30→19:37)
[2019-02-03] MEDS: D5 1/2NS w/KCl 20mEq 1,000 ML IV SCH ×2 (03:41→20:41)
[2019-02-03 04:00] VITALS: BP 147/75
[2019-02-03] MEDS: Piperacillin/Tazobactam 3.375 GM in NS 110 ML IVPB SCH ×3 (06:05→21:43)
[2019-02-03 07:34] LABS: BASOPHILS % (AUTO) 0.4 % (0.0-2.0); HEMATOCRIT 32.7 % (37.0-47.0); LYMPHOCYTES % (AUTO) 21.6 % (20.0-45.0); MEAN CORPUSCULAR VOLUME 98 FL (80-99); PLATELET COUNT 147 K/UL (150-450); RED BLOOD COUNT 3.35 M/UL (4.20-5.40); RED CELL DISTRIBUTION WIDTH 12.1 % (11.6-14.8); WHITE BLOOD COUNT 5.8 K/UL (4.8-10.8)
--- NOTE | 2019-02-03 07:35 | NUR ---
NURSE NOTES: HAND-OFF: Report given to SEVEN Sorensen, patient in stable condition, plan of care endorsed.
[2019-02-03 07:51] LABS: ALANINE AMINOTRANSFERASE 100 U/L (12-78); ALBUMIN 2.5 G/DL (3.4-5.0); ALBUMIN/GLOBULIN RATIO 0.7 (1.0-2.7); ALKALINE PHOSPHATASE 136 U/L (46-116); AMYLASE 92 U/L (25-115); ANION GAP 9 mmol/L (5-15); ASPARTATE AMINO TRANSFERASE 94 U/L (15-37); BILIRUBIN,TOTAL 0.2 MG/DL (0.2-1.0); BLOOD UREA NITROGEN 13 mg/dL (7-18); CALCIUM 8.2 MG/DL (8.5-10.1); CARBON DIOXIDE 27 MMOL/L (21-32); CHLORIDE 113 MMOL/L (98-107); CREATININE 0.7 MG/DL (0.55-1.30); POTASSIUM 3.3 MMOL/L (3.5-5.1); SODIUM 149 MMOL/L (136-145)
[2019-02-03 08:00] VITALS: BP 141/60
--- NOTE | 2019-02-03 08:15 | NUR ---
NURSE NOTES: pt. in bed sleeping, sitter at bedside and he will feed pt . Pt on diagnostic cardiac sonographer, no signs of cardiac or respiratory distress. IV is patent and running. Call light close to pt's reach. Bed is locked and in lowest position. Will continue to monitor labs and pt.
[2019-02-03] MEDS: Wixela 250/50 Inhaler - 60 dose INH SCH ×2 (08:29→18:00)
--- NOTE | 2019-02-03 08:55 | NUR ---
NURSE NOTES: l/M for doctor Rakesh, latest labs. spoke to Debra.
[2019-02-03] MEDS: Solu-MEDROL 125mg Inj IVP SCH (10:14)
[2019-02-03] MEDS: Citalopram Hydrobromide 10mg Tab ORAL SCH (10:15)
[2019-02-03] MEDS: Docusate 100mg cap ORAL SCH ×2 (10:15→18:38)
--- NOTE | 2019-02-03 11:23 | Surgery Progress Note ---
Surgery Progress Note Subjective Additional Comments Lipase trending down. LFTs trending down. Patient seen and examined at bedside. Caregiver is at bedside. No acute events overnight. No nausea vomiting fever or chills. She is resting comfortably on the left lateral decubitus position at this time. Air mattress in place Objective Last 24 Hour Vital Signs Date Time Temp Pulse Resp B/P (MAP) Pulse Ox O2 Delivery O2 Flow Rate FiO2 02/03/19 08:16 81 20 98 Room Air 21 84 20 94 02/03/19 04:00 75 02/03/19 04:00 97.6 87 20 147/75 (99) 96 02/03/19 01:30 67 18 99 Room Air 21 65 18 98 02/03/19 00:47 97.5 80 20 125/64 (84) 95 02/03/19 00:00 79 02/02/19 21:00 Nasal Cannula 2.0 02/02/19 20:06 65 18 98 Room Air 21 63 18 97 02/02/19 20:00 75 02/02/19 20:00 98.3 86 18 125/63 (83) 95 02/02/19 16:00 98.8 90 18 116/56 (76) 96 02/02/19 16:00 85 02/02/19 12:35 76 18 97 Room Air 21 74 18 94 02/02/19 12:00 76 02/02/19 12:00 97.7 92 20 123/56 (78) 95 I&O Intake and Output 02/02/19 02/03/19 19:00 07:00 Intake Total 240 ml Balance 240 ml Intake Oral 240 ml # Voids 5 2 # Bowel Movements 2 1 Dressing: dry Wound: clean Cardiovascular: RSR Respiratory: clear Abdomen: soft, non-tender, present bowel sounds Extremities: no edema, no tenderness, no cyanosis Laboratory Tests Test 02/03/19 06:50 White Blood Count 5.8 K/UL (4.8-10.8) Red Blood Count 3.35 M/UL (4.20-5.40) L Hemoglobin 11.0 G/DL (12.0-16.0) L Hematocrit 32.7 % (37.0-47.0) L Mean Corpuscular Volume 98 FL (80-99) Mean Corpuscular Hemoglobin 32.9 PG (27.0-31.0) H Mean Corpuscular Hemoglobin Concent 33.7 G/DL (32.0-36.0) Red Cell Distribution Width 12.1 % (11.6-14.8) Platelet Count 147 K/UL (150-450) L Mean Platelet Volume 5.4 FL (6.5-10.1) L Neutrophils (%) (Auto) 70.0 % (45.0-75.0) Lymphocytes (%) (Auto) 21.6 % (20.0-45.0) Monocytes (%) (Auto) 8.0 % (1.0-10.0) Eosinophils (%) (Auto) 0.0 % (0.0-3.0) Basophils (%) (Auto) 0.4 % (0.0-2.0) Sodium Level 149 MMOL/L (136-145) H Potassium Level 3.3 MMOL/L (3.5-5.1) L Chloride Level 113 MMOL/L (98-107) H Carbon Dioxide Level 27 MMOL/L (21-32) Anion Gap 9 mmol/L (5-15) Blood Urea Nitrogen 13 mg/dL (7-18) Creatinine 0.7 MG/DL (0.55-1.30) Estimat Glomerular Filtration Rate mL/min (>60) Glucose Level 104 MG/DL (74-106) Calcium Level 8.2 MG/DL (8.5-10.1) L Total Bilirubin 0.2 MG/DL (0.2-1.0) Aspartate Amino Transf (AST/SGOT) 94 U/L (15-37) H Alanine Aminotransferase (ALT/SGPT) 100 U/L (12-78) H Alkaline Phosphatase 136 U/L (46-116) H Total Protein 5.9 G/DL (6.4-8.2) L Albumin 2.5 G/DL (3.4-5.0) L Globulin 3.4 g/dL Albumin/Globulin Ratio 0.7 (1.0-2.7) L Amylase Level 92 U/L (25-115) Lipase 392 U/L (73-393) Plan Problems: (1) Elevated LFTs Assessment & Plan: Patient admitted with normal LFTs but significantly elevated soon after admission. Pancreatitis as well. Ultrasound Work-up for abnormal LFTs and pancreatitis pending will follow with recommendations Ultrasound noted and unfortunately given patient's habitus and current condition difficult to determine. Question if possible prior Meng and difficult to tell given exam Lipase improved today LFTs trending down IV fluids Labs Will hold on CT or MRI thank you (2) Elevated lipase (3) Skin lesion Assessment & Plan: Pt presented on admission with multiple pressure injuries. Large irregular shaped erythema noted on lower back and sacrum. Base of wound is maroon with slight hint of purple area at sacrococcygeal. (L)4.3cm x (W)11cm. erythema noted to L buttocks. Base of wound is maroon. (L)2.8cm x (W)7cm. Erythema noted to perineum. Both heels are boggy with non-blanchable erythema. L st metatarsal noted to be swollen, erythematous with dry scabbed area along cuticle of nail. No exudate noted presently. Tx.Plan: Apply Triad Paste to Sacral area and L buttocks.Cover with Optifoam drsg. Change every 3 days and prn. Apply Triad Paste to perineum with each incontinence care. Apply Betadine to L 1st metatarsal daily. Apply Cavilon Skin Barrier to both heels. Cover each heel with Optifoam drsg. Change every 7 days and prn. APM/ADILENE mattress overlay. Reposition at least every 2hours or as tolerated. Off-load heels with pillow. Place pillow between knees. Bran Mims Feb 03, 2019 11:23
[2019-02-03 12:00] VITALS: BP 100/61
--- NOTE | 2019-02-03 15:17 | General Progress Note ---
Assessment/Plan Assessment/Plan: Assessment - sudden jump in LFT, lipase - likely passed a stone - aspiration risk - RAD - OBS - ? s/p Bettie (based on RUQ scar) Recommendations - Follow LFT - PO as tolerated - aspiration precautions - f/u final U/S - If U/S inconclusive, can consider CT/MR Thank you Forest Clark MD Subjective Allergies: Coded Allergies: NO KNOWN ALLERGIES (Unverified Allergy, Unknown, 09/09/16) Objective Last 24 Hour Vital Signs Date Time Temp Pulse Resp B/P (MAP) Pulse Ox O2 Delivery O2 Flow Rate FiO2 02/03/19 13:10 80 20 98 Room Air 21 83 20 94 02/03/19 08:16 81 20 98 Room Air 21 84 20 94 02/03/19 04:00 75 02/03/19 04:00 97.6 87 20 147/75 (99) 96 02/03/19 01:30 67 18 99 Room Air 21 65 18 98 02/03/19 00:47 97.5 80 20 125/64 (84) 95 02/03/19 00:00 79 02/02/19 21:00 Nasal Cannula 2.0 02/02/19 20:06 65 18 98 Room Air 21 63 18 97 02/02/19 20:00 75 02/02/19 20:00 98.3 86 18 125/63 (83) 95 02/02/19 16:00 98.8 90 18 116/56 (76) 96 02/02/19 16:00 85 Intake and Output 02/02/19 02/03/19 19:00 07:00 Intake Total 240 ml Balance 240 ml Intake Oral 240 ml # Voids 5 2 # Bowel Movements 2 1 Laboratory Tests 02/03/19 06:50: White Blood Count 5.8, Red Blood Count 3.35L, Hemoglobin 11.0L, Hematocrit 32.7L , Mean Corpuscular Volume 98, Mean Corpuscular Hemoglobin 32.9H, Mean Corpuscular Hemoglobin Concent 33.7, Red Cell Distribution Width 12.1, Platelet Count 147L, Mean Platelet Volume 5.4L, Neutrophils (%) (Auto) 70.0, Lymphocytes (%) (Auto) 21.6, Monocytes (%) (Auto) 8.0, Eosinophils (%) (Auto) 0.0, Basophils (%) (Auto) 0.4, Sodium Level 149H, Potassium Level 3.3L, Chloride Level 113H, Carbon Dioxide Level 27, Anion Gap 9, Blood Urea Nitrogen 13, Creatinine 0.7, Estimat Glomerular Filtration Rate , Glucose Level 104, Calcium Level 8.2L, Total Bilirubin 0.2, Aspartate Amino Transf (AST/SGOT) 94H, Alanine Aminotransferase (ALT/SGPT) 100H, Alkaline Phosphatase 136H, Total Protein 5.9L , Albumin 2.5L, Globulin 3.4, Albumin/Globulin Ratio 0.7L, Amylase Level 92, Lipase 392 Height (Feet): 5 Height (Inches): 3.00 Weight (Pounds): 134 Forest Clark MD Feb 03, 2019 15:17
[2019-02-03 16:00] VITALS: BP 139/68
[2019-02-03] MEDS ORDERED: NS 275ml ONE (16:09)
[2019-02-03] MEDS ORDERED: Tubing IV Secondary IV ONE (16:09)
--- NOTE | 2019-02-03 16:15 | Geriatric Progress Note ---
Assessment/Plan Problems: (1) Elevated LFTs (2) Elevated lipase (3) Hypothyroid (4) Dementia with behavioral disturbance (5) Aspiration pneumonitis (6) Skin lesion Assessment/Plan Continues to improve. Suspect primarily chemical pneumonitis, but continue antibiotics. Begin tapering Solumedrol. Continue bronchodilators. Recheck CXR. Supplement K for hypokalemia. Possible passed CBD stone, s/p cholecystectomy. Discussed with Dr. Clark, monitor for normalization of LFTs. Consider imaging if labs do not normalize. Skin wounds on tx. Patient might benefit from SNF stay to complete antibiotics and tx wounds prior to returning to [facility]. Will discuss with Quin Lea when patient more stable. OK to go to medical floor. Discussed with: hospital staff, other - caregiver Subjective Interval Events Patient more alert, responsive. Language garbled as before. Normal b.m., good intake per caregiver. Staff reports some diaphoresis, but no fever. Bps relatively low, but no evidence of cardiovascular issue. Skin wounds on therapy. Seen by Dr. Mims. Lipase normalized, LFTs improved. Scans with no evidence of obstructing stone or definite pancreatitis, but images poor quality due to patient's inability to maintain positioning. ? prior cholecystectomy. Seen by Dr. Clark, who believes passed stone is a possibility. Given patient's overal status and prognosis, further diagnostic evaluation deferred unless further sxs. Subjective No comprehensible responses. Geriatric Geriatric Last 24 Hour Vital Signs Date Time Temp Pulse Resp B/P (MAP) Pulse Ox O2 Delivery O2 Flow Rate FiO2 02/03/19 13:10 80 20 98 Room Air 21 83 20 94 02/03/19 08:16 81 20 98 Room Air 21 84 20 94 02/03/19 04:00 75 02/03/19 04:00 97.6 87 20 147/75 (99) 96 02/03/19 01:30 67 18 99 Room Air 21 65 18 98 02/03/19 00:47 97.5 80 20 125/64 (84) 95 02/03/19 00:00 79 02/02/19 21:00 Nasal Cannula 2.0 02/02/19 20:06 65 18 98 Room Air 21 63 18 97 02/02/19 20:00 75 02/02/19 20:00 98.3 86 18 125/63 (83) 95 02/02/19 16:00 98.8 90 18 116/56 (76) 96 02/02/19 16:00 85 Intake and Output 02/02/19 02/03/19 18:59 06:59 Intake Total 240 ml Balance 240 ml Intake Oral 240 ml # Voids 5 2 # Bowel Movements 2 1 Laboratory Tests Test 02/03/19 06:50 White Blood Count 5.8 K/UL (4.8-10.8) Red Blood Count 3.35 M/UL (4.20-5.40) L Hemoglobin 11.0 G/DL (12.0-16.0) L Hematocrit 32.7 % (37.0-47.0) L Mean Corpuscular Volume 98 FL (80-99) Mean Corpuscular Hemoglobin 32.9 PG (27.0-31.0) H Mean Corpuscular Hemoglobin Concent 33.7 G/DL (32.0-36.0) Red Cell Distribution Width 12.1 % (11.6-14.8) Platelet Count 147 K/UL (150-450) L Mean Platelet Volume 5.4 FL (6.5-10.1) L Neutrophils (%) (Auto) 70.0 % (45.0-75.0) Lymphocytes (%) (Auto) 21.6 % (20.0-45.0) Monocytes (%) (Auto) 8.0 % (1.0-10.0) Eosinophils (%) (Auto) 0.0 % (0.0-3.0) Basophils (%) (Auto) 0.4 % (0.0-2.0) Sodium Level 149 MMOL/L (136-145) H Potassium Level 3.3 MMOL/L (3.5-5.1) L Chloride Level 113 MMOL/L (98-107) H Carbon Dioxide Level 27 MMOL/L (21-32) Anion Gap 9 mmol/L (5-15) Blood Urea Nitrogen 13 mg/dL (7-18) Creatinine 0.7 MG/DL (0.55-1.30) Estimat Glomerular Filtration Rate mL/min (>60) Glucose Level 104 MG/DL (74-106) Calcium Level 8.2 MG/DL (8.5-10.1) L Total Bilirubin 0.2 MG/DL (0.2-1.0) Aspartate Amino Transf (AST/SGOT) 94 U/L (15-37) H Alanine Aminotransferase (ALT/SGPT) 100 U/L (12-78) H Alkaline Phosphatase 136 U/L (46-116) H Total Protein 5.9 G/DL (6.4-8.2) L Albumin 2.5 G/DL (3.4-5.0) L Globulin 3.4 g/dL Albumin/Globulin Ratio 0.7 (1.0-2.7) L Amylase Level 92 U/L (25-115) Lipase 392 U/L (73-393) Current Medications Medications (Trade) Dose Ordered Sig/Hitesh Route PRN Reason Start Time Stop Time Status Last Admin Dose Admin Albuterol/ Ipratropium (Albuterol/ Ipratropium) 3 ml Q6HRT HHN 02/01/19 19:00 02/06/19 18:59 02/03/19 13:11 Citalopram Hydrobromide (celeXA) 20 mg DAILY ORAL 02/02/19 09:00 03/04/19 08:59 02/03/19 10:15 Dextrose (Dextrose 50%) 25 ml Q30M PRN IV Hypoglycemia 02/01/19 18:00 03/03/19 17:59 Dextrose (Dextrose 50%) 50 ml Q30M PRN IV Hypoglycemia 02/01/19 18:00 03/03/19 17:59 Dextrose/ Electrolytes 1,000 ml @ 65 mls/hr [id number] IV 02/02/19 13:00 03/04/19 12:59 02/03/19 03:41 Docusate Sodium (Colace) 100 mg TWICE A DAY ORAL 02/01/19 18:00 03/03/19 17:59 02/03/19 10:15 Levothyroxine Sodium (Synthroid) 50 mcg DAILY@0630 ORAL 02/02/19 06:30 03/04/19 06:29 02/03/19 06:06 Methylprednisolone Sodium Succinate (Solu-MEDROL) 60 mg DAILY IVP 02/01/19 18:00 03/03/19 17:59 02/03/19 10:14 Pantoprazole (Protonix) 40 mg ACBREAKFAST ORAL 02/02/19 06:30 03/04/19 06:29 02/03/19 06:05 Piperacillin Sod/ Tazobactam Sod 3.375 gm/Sodium Chloride 110 ml @ 27.5 mls/hr EVERY 8 HOURS IVPB 02/01/19 22:00 02/06/19 21:59 02/03/19 14:27 Polyethylene Glycol (Miralax) 17 gm DAILY PRN ORAL Constipation 02/01/19 18:00 03/03/19 17:59 Quetiapine Fumarate (SEROquel) 12.5 mg ACBREAKFAST ORAL 02/02/19 06:30 03/04/19 06:29 02/03/19 06:05 Quetiapine Fumarate (SEROquel) 12.5 mg QLUNCH ORAL 02/02/19 11:30 03/04/19 11:29 02/03/19 13:12 Quetiapine Fumarate (SEROquel) 25 mg QHS ORAL 02/01/19 21:00 03/03/19 20:59 02/02/19 21:51 Salmeterol Xinafoate/ Fluticasone (Advair 250/50 Diskus) 1 puffs BID INH 02/01/19 18:00 03/03/19 17:59 Height (Feet): 5 Height (Inches): 3.00 Weight (Pounds): 134 General Appearance: alert, non-toxic Head: normocephalic, atraumatic Eyes: bilateral anicteric ENT: normal voice Neck: full range of motion, no mass Respiratory: rhonchi, wheezing - occasional Cardiovascular: regular rate, rhythm Gastrointestinal: normal bowel sounds, non tender, soft, no mass, no organomegaly Musculoskeletal: no calf tenderness Edema: no edema noted Generalized Neurologic: no new focality Skin: wounds - as per Dr. Mims. Jamin Cameron MD Feb 03, 2019 16:15
--- NOTE | 2019-02-03 19:48 | NUR ---
HAND-OFF: Report given to Joshua/rony.
--- NOTE | 2019-02-03 19:49 | NUR ---
NURSE NOTES: Received report from SEVEN Sorensen. Patient is asleep, arousable to name and shaking, lying in semi lopez's; resting comfortably. A/Ox1. Checked IV site and flushed. No erythema, bleeding or infiltration noted. Bed at lowest position, brakes on, siderails x3. On P200 mattress for wound management. Call light within reach. Will continue to monitor.
[2019-02-03 20:00] VITALS: BP 148/94
[2019-02-04] VITALS: BP 112/92
[2019-02-04] MEDS: Albuterol/Ipratropium 3ml neb HHN SCH ×4 (00:25→19:53)
--- NOTE | 2019-02-04 01:00 | Consultation ---
DATE OF CONSULTATION: 02/03/2019 GASTROENTEROLOGY CONSULTATION CHIEF COMPLAINT: I was asked to see this patient by Dr. Jamin Cameron for evaluation of abnormal liver tests and lipase. HISTORY OF PRESENT ILLNESS: The patient is a debilitated 83-year-old white woman with advanced cognitive dysfunction under conservatorship, who was brought into the hospital due to apparent aspiration and subsequent wheezing and reactive airways. The patient is nonverbal and unable to provide any history. Most of the information is available from the chart. When the patient was admitted, she appeared to have a basic aspiration, which was treated appropriately. However, in the course of admission, she appeared to have a jump in her liver tests. On admission on 02/01/2019, her AST and ALT and alkaline phosphatase and bili were all normal. The next day on 02/02/2019 and today on the 02/03/2019, the AST and ALT and alkaline phosphatase are elevated although they are beginning to show a declining pattern. In addition, the lipase jumped to over 2000 yesterday and today, it is 392. An abdominal ultrasound has been done which the results are pending. There is a cholecystectomy like scar in the right upper quadrant. So, she may have had her gallbladder removed in the past. PAST MEDICAL HISTORY: History of advanced dementia, bedbound state, depression disorders, chronic obstructive pulmonary disease, diabetes, hypothyroidism, hyperlipidemia, peripheral edema, degenerative joint disease, history of atrial fibrillation, history of dysphagia aspiration on a modified diet, history of cellulitis in the gluteal area, status post hip fracture repair, right arm fracture, and cataract surgery. MEDICATIONS: See the chart list for details. They include Aricept, Advair, Celexa, Combivent, docusate, MiraLAX, multivitamin, Lasix, Seroquel, omeprazole, Synthroid, vitamin D, and cranberry. ALLERGIES: None. FAMILY HISTORY: Noncontributory. SOCIAL HISTORY: The patient born in [place]. She is under conservatorship. REVIEW OF SYSTEMS: Otherwise negative. PHYSICAL EXAMINATION: GENERAL: A debilitated white woman, seen in her room with the manager culture at bedside. HEENT: Normocephalic and atraumatic. Sclerae anicteric. Dentition is poor. NECK: Supple. CHEST: Reveals scattered rhonchi and wheezes. CARDIOVASCULAR: Revealed a regular rate. ABDOMEN: Soft with good bowel sounds. Nontender. EXTREMITIES: Revealed some contractures. NEUROLOGIC: Notable for dementia. LABORATORY DATA: Noted. ASSESSMENT: This patient has some jump in the liver tests, which are now declining and with also similar jump in the lipase, which has already declined. This pattern is highly suspicious for passage of gallstones due to this finding. The patient may have had a gallbladder surgery based on the appearance of the scar in the right upper quadrant. I will review the ultrasound, but the patient may need a CT or an MRI to evaluate the common bile duct in order to avoid recurrences. If there is a common bile duct stone, then this may have to be removed. For the time being, the liver tests should be followed. RECOMMENDATIONS: 1. P.o. diet as tolerated. 2. Aspiration precautions. 3. Follow liver tests and lipase. 4. Follow up the ultrasound results. 5. Consider advanced imaging, either CT or MRI. Thank you for asking me to participate in the care of this patient. Forest Clark M.D. DR: ANNA JOB#: [id number] CC: DILIP
--- NOTE | 2019-02-04 01:57 | NUR ---
NURSE NOTES: Resting throughout the night. No significant change of condition noted. Will continue to monitor.
[2019-02-04 04:00] VITALS: BP 138/70
[2019-02-04] MEDS: Piperacillin/Tazobactam 3.375 GM in NS 110 ML IVPB SCH ×2 (05:38→14:58)
--- NOTE | 2019-02-04 07:20 | NUR ---
NURSE NOTES: I received the patient awake and resting in bed. Patient's caregiver at the bedside. Patient alert to name. Patient does not display any signs of distress. Bed in the lowest position and call light within reach. I will continue to monitor the patient and implement care.
--- NOTE | 2019-02-04 07:25 | NUR ---
HAND-OFF: Report given to SEVEN Alicea. Plan of care endorsed.
[2019-02-04 07:45] LABS: BASOPHILS % (AUTO) 0.4 % (0.0-2.0); HEMATOCRIT 32.4 % (37.0-47.0); HEMOGLOBIN 11.2 G/DL (12.0-16.0); LYMPHOCYTES % (AUTO) 21.2 % (20.0-45.0); MEAN CORPUSCULAR VOLUME 97 FL (80-99); MONOCYTES % (AUTO) 7.5 % (1.0-10.0); NEUTROPHILS % (AUTO) 70.8 % (45.0-75.0); PLATELET COUNT 133 K/UL (150-450); RED BLOOD COUNT 3.35 M/UL (4.20-5.40); RED CELL DISTRIBUTION WIDTH 11.1 % (11.6-14.8); WHITE BLOOD COUNT 5.7 K/UL (4.8-10.8)
[2019-02-04] MEDS: Wixela 250/50 Inhaler - 60 dose INH SCH ×2 (07:48→19:52)
--- NOTE | 2019-02-04 07:49 | NUR ---
RESPIRATORY NOTE: Pt unable to perform commands for the Advair.
[2019-02-04 08:00] VITALS: BP 92/71
[2019-02-04 08:11] LABS: ALANINE AMINOTRANSFERASE 89 U/L (12-78); ALBUMIN 2.6 G/DL (3.4-5.0); ALBUMIN/GLOBULIN RATIO 0.8 (1.0-2.7); ALKALINE PHOSPHATASE 119 U/L (46-116); ANION GAP 8 mmol/L (5-15); ASPARTATE AMINO TRANSFERASE 74 U/L (15-37); BILIRUBIN,TOTAL 0.3 MG/DL (0.2-1.0); BLOOD UREA NITROGEN 11 mg/dL (7-18); CALCIUM 8.3 MG/DL (8.5-10.1); CARBON DIOXIDE 29 MMOL/L (21-32); CHLORIDE 113 MMOL/L (98-107); CREATININE 0.7 MG/DL (0.55-1.30); POTASSIUM 3.1 MMOL/L (3.5-5.1); SODIUM 150 MMOL/L (136-145)
[2019-02-04] MEDS: Docusate 100mg cap ORAL SCH ×3 (09:00→18:00)
[2019-02-04] MEDS ORDERED: Solu-MEDROL 40mg Inj IVP SCH (09:00)
--- NOTE | 2019-02-04 09:07 | Diagnostic Imaging Report ---
EXAM: XR Chest, 1 View CLINICAL HISTORY: COUGH TECHNIQUE: Frontal view of the chest. COMPARISON: Chest x-ray, 02 01 19 FINDINGS: Lungs: Hypoventilatory lungs. Mild vascular and interstitial prominence, similar to prior study. No focal infiltrate or consolidation. Pleural space: Unremarkable. No pneumothorax. Heart: Unremarkable. No cardiomegaly. Mediastinum: Unremarkable. Bones joints: Unremarkable. IMPRESSION: Hypoventilatory lungs. Mild vascular and interstitial prominence, similar to prior study. No focal infiltrate or consolidation.
[2019-02-04] MEDS: Citalopram Hydrobromide 10mg Tab ORAL SCH (09:39)
[2019-02-04 12:00] VITALS: BP 124/64
[2019-02-04] MEDS: D5 1/2NS w/KCl 20mEq 1,000 ML IV SCH (12:54)
[2019-02-04 16:00] VITALS: BP 133/60
--- NOTE | 2019-02-04 16:11 | Surgery Progress Note ---
Surgery Progress Note Subjective Additional Comments no acute events lft's trending down electrolytes noted exam stable Objective Last 24 Hour Vital Signs Date Time Temp Pulse Resp B/P (MAP) Pulse Ox O2 Delivery O2 Flow Rate FiO2 02/04/19 13:45 72 20 99 Room Air 21 75 20 96 02/04/19 12:00 98.2 75 26 124/64 (84) 97 02/04/19 11:30 79 02/04/19 09:00 Nasal Cannula 2.0 02/04/19 08:00 98.1 73 26 92/71 (78) 98 02/04/19 07:49 73 02/04/19 07:43 74 20 99 Room Air 21 73 20 94 02/04/19 04:00 98.5 77 16 138/70 (92) 97 02/04/19 04:00 92 02/04/19 00:00 97.8 62 16 112/92 (99) 97 02/04/19 00:00 65 02/03/19 21:00 Nasal Cannula 2.0 02/03/19 20:00 73 02/03/19 20:00 99.5 76 16 148/94 (112) 100 02/03/19 19:42 75 18 97 Room Air 21 02/03/19 19:39 77 20 99 Room Air 21 74 18 97 I&O Intake and Output 02/03/19 02/04/19 19:00 07:00 Intake Total 600 ml Balance 600 ml Other 600 ml # Voids 2 # Bowel Movements 2 1 Dressing: dry Wound: clean Cardiovascular: RSR Respiratory: clear Abdomen: soft, non-tender, present bowel sounds Extremities: no tenderness, no cyanosis Laboratory Tests Test 02/04/19 06:16 White Blood Count 5.7 K/UL (4.8-10.8) Red Blood Count 3.35 M/UL (4.20-5.40) L Hemoglobin 11.2 G/DL (12.0-16.0) L Hematocrit 32.4 % (37.0-47.0) L Mean Corpuscular Volume 97 FL (80-99) Mean Corpuscular Hemoglobin 33.3 PG (27.0-31.0) H Mean Corpuscular Hemoglobin Concent 34.5 G/DL (32.0-36.0) Red Cell Distribution Width 11.1 % (11.6-14.8) L Platelet Count 133 K/UL (150-450) L Mean Platelet Volume 5.8 FL (6.5-10.1) L Neutrophils (%) (Auto) 70.8 % (45.0-75.0) Lymphocytes (%) (Auto) 21.2 % (20.0-45.0) Monocytes (%) (Auto) 7.5 % (1.0-10.0) Eosinophils (%) (Auto) 0.0 % (0.0-3.0) Basophils (%) (Auto) 0.4 % (0.0-2.0) Sodium Level 150 MMOL/L (136-145) H Potassium Level 3.1 MMOL/L (3.5-5.1) L Chloride Level 113 MMOL/L (98-107) H Carbon Dioxide Level 29 MMOL/L (21-32) Anion Gap 8 mmol/L (5-15) Blood Urea Nitrogen 11 mg/dL (7-18) Creatinine 0.7 MG/DL (0.55-1.30) Estimat Glomerular Filtration Rate mL/min (>60) Glucose Level 89 MG/DL (74-106) Calcium Level 8.3 MG/DL (8.5-10.1) L Total Bilirubin 0.3 MG/DL (0.2-1.0) Aspartate Amino Transf (AST/SGOT) 74 U/L (15-37) H Alanine Aminotransferase (ALT/SGPT) 89 U/L (12-78) H Alkaline Phosphatase 119 U/L (46-116) H Total Protein 6.0 G/DL (6.4-8.2) L Albumin 2.6 G/DL (3.4-5.0) L Globulin 3.4 g/dL Albumin/Globulin Ratio 0.8 (1.0-2.7) L Thyroid Stimulating Hormone (TSH) 3.416 uiU/mL (0.358-3.740) Free Thyroxine 0.92 NG/DL (0.76-1.46) Plan Problems: (1) Elevated LFTs Assessment & Plan: Patient admitted with normal LFTs but significantly elevated soon after admission. Pancreatitis as well. Ultrasound Work-up for abnormal LFTs and pancreatitis pending will follow with recommendations Ultrasound noted and unfortunately given patient's habitus and current condition difficult to determine. Question if possible prior Meng and difficult to tell given exam Lipase improved LFTs trending down IV fluids Labs Will hold on CT or MRI thank you (2) Elevated lipase (3) Skin lesion Assessment & Plan: Pt presented on admission with multiple pressure injuries. Large irregular shaped erythema noted on lower back and sacrum. Base of wound is maroon with slight hint of purple area at sacrococcygeal. (L)4.3cm x (W)11cm. erythema noted to L buttocks. Base of wound is maroon. (L)2.8cm x (W)7cm. Erythema noted to perineum. Both heels are boggy with non-blanchable erythema. L st metatarsal noted to be swollen, erythematous with dry scabbed area along cuticle of nail. No exudate noted presently. Tx.Plan: Apply Triad Paste to Sacral area and L buttocks.Cover with Optifoam drsg. Change every 3 days and prn. Apply Triad Paste to perineum with each incontinence care. Apply Betadine to L 1st metatarsal daily. Apply Cavilon Skin Barrier to both heels. Cover each heel with Optifoam drsg. Change every 7 days and prn. APM/ADILENE mattress overlay. Reposition at least every 2hours or as tolerated. Off-load heels with pillow. Place pillow between knees. Bran Mims Feb 04, 2019 16:11
--- NOTE | 2019-02-04 16:23 | General Progress Note ---
Assessment/Plan Assessment/Plan: Assessment - sudden jump in LFT, lipase - likely passed a stone - aspiration risk - RAD - OBS - ? s/p Bettie (based on RUQ scar) Recommendations - Follow LFT - PO as tolerated - aspiration precautions - if LFT fail to completely normalize, then further evaluation (CT/MR) can be considered Subjective Allergies: Coded Allergies: NO KNOWN ALLERGIES (Unverified Allergy, Unknown, 09/09/16) Subjective Confused tolerating PO Objective Last 24 Hour Vital Signs Date Time Temp Pulse Resp B/P (MAP) Pulse Ox O2 Delivery O2 Flow Rate FiO2 02/04/19 13:45 72 20 99 Room Air 21 75 20 96 02/04/19 12:00 98.2 75 26 124/64 (84) 97 02/04/19 11:30 79 02/04/19 09:00 Nasal Cannula 2.0 02/04/19 08:00 98.1 73 26 92/71 (78) 98 02/04/19 07:49 73 02/04/19 07:43 74 20 99 Room Air 21 73 20 94 02/04/19 04:00 98.5 77 16 138/70 (92) 97 02/04/19 04:00 92 02/04/19 00:00 97.8 62 16 112/92 (99) 97 02/04/19 00:00 65 02/03/19 21:00 Nasal Cannula 2.0 02/03/19 20:00 73 02/03/19 20:00 99.5 76 16 148/94 (112) 100 02/03/19 19:42 75 18 97 Room Air 21 02/03/19 19:39 77 20 99 Room Air 21 74 18 97 Intake and Output 02/03/19 02/04/19 19:00 07:00 Intake Total 600 ml Balance 600 ml Other 600 ml # Voids 2 # Bowel Movements 2 1 Laboratory Tests 02/04/19 06:16: White Blood Count 5.7, Red Blood Count 3.35L, Hemoglobin 11.2L, Hematocrit 32.4L , Mean Corpuscular Volume 97, Mean Corpuscular Hemoglobin 33.3H, Mean Corpuscular Hemoglobin Concent 34.5, Red Cell Distribution Width 11.1L, Platelet Count 133L, Mean Platelet Volume 5.8L, Neutrophils (%) (Auto) 70.8, Lymphocytes (%) (Auto) 21.2, Monocytes (%) (Auto) 7.5, Eosinophils (%) (Auto) 0.0, Basophils (%) (Auto) 0.4, Sodium Level 150H, Potassium Level 3.1L, Chloride Level 113H, Carbon Dioxide Level 29, Anion Gap 8, Blood Urea Nitrogen 11, Creatinine 0.7, Estimat Glomerular Filtration Rate , Glucose Level 89, Calcium Level 8.3L, Total Bilirubin 0.3, Aspartate Amino Transf (AST/SGOT) 74H, Alanine Aminotransferase (ALT/SGPT) 89H, Alkaline Phosphatase 119H, Total Protein 6.0L, Albumin 2.6L, Globulin 3.4, Albumin/Globulin Ratio 0.8L, Thyroid Stimulating Hormone (TSH) 3.416, Free Thyroxine 0.92 Height (Feet): 5 Height (Inches): 3.00 Weight (Pounds): 134 Objective Elderly confused WW NCAT supple CTA RR abd soft NT ND no edema Forest Clark MD Feb 04, 2019 16:23
--- NOTE | 2019-02-04 18:06 | NUR ---
NURSE NOTES: Called at 18:00 Paged Ciro Young about Potassium 3.1 and sodium 150. Awaiting call back.
--- NOTE | 2019-02-04 18:45 | NUR ---
NURSE NOTES: Dr. Cameron arrived on unit. He is aware of potassium 3.1 and other labs.
--- NOTE | 2019-02-04 19:12 | NUR ---
HAND-OFF: Report given to Brian Lewis RN.
--- NOTE | 2019-02-04 19:23 | NUR ---
HAND-OFF: Report given to Rico Meyers RN.
--- NOTE | 2019-02-04 19:32 | NUR ---
NURSE NOTES: Pt received from Deanne, alert and oriented x1 to name only, with no acute s/s of distress noted. IV site asymptomatic and patent on R fa 22g running to ordered IV fluids. Bed in lowest position, bed alarm on. Call light and belongings within reach.
--- NOTE | 2019-02-04 19:38 | Geriatric Progress Note ---
Assessment/Plan Problems: (1) Elevated LFTs (2) Elevated lipase (3) Hypothyroid (4) Dementia with behavioral disturbance (5) Aspiration pneumonitis (6) Skin lesion Assessment/Plan Suspect primarily chemical aspiration. Will narrow spectrum to Ceftriaxone. Taper Solumedrol further. Continue bronchodilators. Change IV for Na, K correction. Possible passed CBD stone, s/p cholecystectomy. LFTs continue to improve. Monitor. Skin wounds on tx per Dr. Mims. Call placed to Quin Lea re ? SNF stay for stabilization and wound treatment. Discussed with: hospital staff Subjective Interval Events Patient appears to recognize examiner to some extent. Inarticulate verbal output c/w baseline. Voice with slightly "wet" quality still. Reportedly ate well. CXR without definitive infiltrate or vascular overload. Labs with Na 150, K 3.1 still. Otherwise normalizing. Wounds per Dr. Mims. Subjective No comprehensible responses. Geriatric Geriatric Last 24 Hour Vital Signs Date Time Temp Pulse Resp B/P (MAP) Pulse Ox O2 Delivery O2 Flow Rate FiO2 02/04/19 16:00 98.2 91 22 133/60 (84) 94 02/04/19 15:43 78 02/04/19 13:45 72 20 99 Room Air 21 75 20 96 02/04/19 12:00 98.2 75 26 124/64 (84) 97 02/04/19 11:30 79 02/04/19 09:00 Nasal Cannula 2.0 02/04/19 08:00 98.1 73 26 92/71 (78) 98 02/04/19 07:49 73 02/04/19 07:43 74 20 99 Room Air 21 73 20 94 02/04/19 04:00 98.5 77 16 138/70 (92) 97 02/04/19 04:00 92 02/04/19 00:00 97.8 62 16 112/92 (99) 97 02/04/19 00:00 65 02/03/19 21:00 Nasal Cannula 2.0 02/03/19 20:00 73 02/03/19 20:00 99.5 76 16 148/94 (112) 100 02/03/19 19:42 75 18 97 Room Air 21 02/03/19 19:39 77 20 99 Room Air 21 74 18 97 Intake and Output 02/03/19 02/04/19 18:59 06:59 Intake Total 600 ml Balance 600 ml Other 600 ml # Voids 2 # Bowel Movements 1 2 Laboratory Tests Test 02/04/19 06:16 White Blood Count 5.7 K/UL (4.8-10.8) Red Blood Count 3.35 M/UL (4.20-5.40) L Hemoglobin 11.2 G/DL (12.0-16.0) L Hematocrit 32.4 % (37.0-47.0) L Mean Corpuscular Volume 97 FL (80-99) Mean Corpuscular Hemoglobin 33.3 PG (27.0-31.0) H Mean Corpuscular Hemoglobin Concent 34.5 G/DL (32.0-36.0) Red Cell Distribution Width 11.1 % (11.6-14.8) L Platelet Count 133 K/UL (150-450) L Mean Platelet Volume 5.8 FL (6.5-10.1) L Neutrophils (%) (Auto) 70.8 % (45.0-75.0) Lymphocytes (%) (Auto) 21.2 % (20.0-45.0) Monocytes (%) (Auto) 7.5 % (1.0-10.0) Eosinophils (%) (Auto) 0.0 % (0.0-3.0) Basophils (%) (Auto) 0.4 % (0.0-2.0) Sodium Level 150 MMOL/L (136-145) H Potassium Level 3.1 MMOL/L (3.5-5.1) L Chloride Level 113 MMOL/L (98-107) H Carbon Dioxide Level 29 MMOL/L (21-32) Anion Gap 8 mmol/L (5-15) Blood Urea Nitrogen 11 mg/dL (7-18) Creatinine 0.7 MG/DL (0.55-1.30) Estimat Glomerular Filtration Rate mL/min (>60) Glucose Level 89 MG/DL (74-106) Calcium Level 8.3 MG/DL (8.5-10.1) L Total Bilirubin 0.3 MG/DL (0.2-1.0) Aspartate Amino Transf (AST/SGOT) 74 U/L (15-37) H Alanine Aminotransferase (ALT/SGPT) 89 U/L (12-78) H Alkaline Phosphatase 119 U/L (46-116) H Total Protein 6.0 G/DL (6.4-8.2) L Albumin 2.6 G/DL (3.4-5.0) L Globulin 3.4 g/dL Albumin/Globulin Ratio 0.8 (1.0-2.7) L Thyroid Stimulating Hormone (TSH) 3.416 uiU/mL (0.358-3.740) Free Thyroxine 0.92 NG/DL (0.76-1.46) Current Medications Medications (Trade) Dose Ordered Sig/Hitesh Route PRN Reason Start Time Stop Time Status Last Admin Dose Admin Albuterol/ Ipratropium (Albuterol/ Ipratropium) 3 ml Q6HRT HHN 02/01/19 19:00 02/06/19 18:59 02/04/19 13:50 Citalopram Hydrobromide (celeXA) 20 mg DAILY ORAL 02/02/19 09:00 03/04/19 08:59 02/04/19 09:39 Dextrose (Dextrose 50%) 25 ml Q30M PRN IV Hypoglycemia 02/01/19 18:00 03/03/19 17:59 Dextrose (Dextrose 50%) 50 ml Q30M PRN IV Hypoglycemia 02/01/19 18:00 03/03/19 17:59 Dextrose/ Electrolytes 1,000 ml @ 65 mls/hr [id number] IV 02/02/19 13:00 03/04/19 12:59 02/04/19 12:54 Docusate Sodium (Colace) 100 mg TWICE A DAY ORAL 02/01/19 18:00 03/03/19 17:59 02/03/19 18:38 Levothyroxine Sodium (Synthroid) 50 mcg DAILY@0630 ORAL 02/02/19 06:30 03/04/19 06:29 02/04/19 05:39 Methylprednisolone Sodium Succinate (Solu-MEDROL) 30 mg DAILY IVP 02/04/19 09:00 03/03/19 17:59 02/04/19 09:38 Pantoprazole (Protonix) 40 mg ACBREAKFAST ORAL 02/02/19 06:30 03/04/19 06:29 02/04/19 05:39 Piperacillin Sod/ Tazobactam Sod 3.375 gm/Sodium Chloride 110 ml @ 27.5 mls/hr EVERY 8 HOURS IVPB 02/01/19 22:00 02/06/19 21:59 02/04/19 14:58 Polyethylene Glycol (Miralax) 17 gm DAILY PRN ORAL Constipation 02/01/19 18:00 03/03/19 17:59 Quetiapine Fumarate (SEROquel) 12.5 mg ACBREAKFAST ORAL 02/02/19 06:30 03/04/19 06:29 02/04/19 05:39 Quetiapine Fumarate (SEROquel) 12.5 mg QLUNCH ORAL 02/02/19 11:30 03/04/19 11:29 02/04/19 12:54 Quetiapine Fumarate (SEROquel) 25 mg QHS ORAL 02/01/19 21:00 03/03/19 20:59 02/03/19 20:43 Salmeterol Xinafoate/ Fluticasone (Advair 250/50 Diskus) 1 puffs BID INH 02/01/19 18:00 03/03/19 17:59 Height (Feet): 5 Height (Inches): 3.00 Weight (Pounds): 134 General Appearance: no apparent distress, alert, non-toxic Head: normocephalic, atraumatic Eyes: bilateral anicteric Neck: full range of motion, no mass Respiratory: rhonchi, wheezing Cardiovascular: regular rate, rhythm Gastrointestinal: normal bowel sounds, non tender, soft, no mass, no organomegaly Musculoskeletal: no calf tenderness Edema: trace edema Neurologic: no new focality Jamin Cameron MD Feb 04, 2019 19:38
[2019-02-04 20:00] VITALS: BP 140/68
[2019-02-04] MEDS ORDERED: Miralax 17gm pkt ORAL PRN (20:05)
--- NOTE | 2019-02-04 20:32 | NUR ---
TRANSFER TO FLOOR: Patient transferred to [facility], per Dr. Cameron. Report given to Charo, RN and Maria Eugenia Charge Nurse. Belongings and medications given to Charo, RN. Family and or S/O informed of transfer.
--- NOTE | 2019-02-04 20:35 | NUR ---
NURSE NOTES: PT WAS SAFELY TRANSFERRED TO UNIT VIA HOSPITAL BED. RECEIVED REPORT FROM SEVEN LÓPEZ. PT IS AWAKE, AAOX1, ON ROOM AIR, NO ACUTE DISTRESS NOTED. BELONGING LIST WAS REVIEWED AND SIGNED WITH RN. PICTURE OF SACRAL, BUTTOCKS, AND BILATERAL HEELS TAKEN, AND CHANGED DRESSING. IV ON RIGHT FA 22G IS INTACT AND PATENT. BED IS LOCKED AND LOW, BED ALARMS ACTIVE, SIDE RAILS UP X2 AND CALL LIGHT IS WITHIN REACH. WILL CONTINUE TO MONITOR.
[2019-02-04] MEDS ORDERED: cefTRIAXone 1 GM in D5W 55 ML IVPB SCH ×4 (22:00)
[2019-02-05] VITALS: BP 113/73
[2019-02-05] MEDS: Albuterol/Ipratropium 3ml neb HHN SCH ×3 (02:04→12:35)
[2019-02-05 04:00] VITALS: BP 120/59
--- NOTE | 2019-02-05 07:45 | NUR ---
NURSE NOTES: Received report from Charo, RN. The patient is resting on the bed without acute distress or shortness of breath. The patient's bed in the lowest position, call light in reach, and fall and aspiration precaution reinforced. IV site intact and patent. The patient just started breathing treatment. Will continue plan of care.
--- NOTE | 2019-02-05 07:52 | NUR ---
HAND-OFF: Report given to AMAYA MENDOZA RN.
[2019-02-05 08:00] VITALS: BP 124/74
--- NOTE | 2019-02-05 08:23 | General Progress Note ---
Assessment/Plan Assessment/Plan: Assessment - sudden jump in LFT, lipase - likely passed a stone - aspiration risk - RAD - OBS - s/p Bettie Recommendations - Follow LFT - PO as tolerated - aspiration precautions - if LFT fail to completely normalize, then further evaluation (CT/MR) can be considered Subjective Allergies: Coded Allergies: NO KNOWN ALLERGIES (Unverified Allergy, Unknown, 09/09/16) Subjective Confused tolerating PO Objective Last 24 Hour Vital Signs Date Time Temp Pulse Resp B/P (MAP) Pulse Ox O2 Delivery O2 Flow Rate FiO2 02/05/19 07:43 80 18 99 Room Air 21 79 18 93 02/05/19 04:00 97.4 60 16 120/59 (79) 99 02/05/19 02:14 65 20 99 Room Air 21 02/05/19 02:04 64 20 96 Room Air 21 02/05/19 00:00 97.5 79 16 113/73 (86) 93 02/04/19 21:00 Nasal Cannula 2.0 02/04/19 20:02 76 20 98 Room Air 21 02/04/19 20:00 98.0 90 20 140/68 (92) 97 02/04/19 19:53 74 20 95 Room Air 21 02/04/19 16:00 98.2 91 22 133/60 (84) 94 02/04/19 15:43 78 02/04/19 13:45 72 20 99 Room Air 21 75 20 96 02/04/19 12:00 98.2 75 26 124/64 (84) 97 02/04/19 11:30 79 02/04/19 09:00 Nasal Cannula 2.0 Intake and Output 02/04/19 02/05/19 19:00 07:00 Intake Total 1115 ml 460 ml Output Total 300 ml Balance 815 ml 460 ml Intake Oral 660 ml IV Total 455 ml 460 ml Output Urine Total 300 ml # Voids 1 1 # Bowel Movements 2 1 Laboratory Tests 02/05/19 08:15: White Blood Count [Pending], Red Blood Count [Pending], Hemoglobin [Pending], Hematocrit [Pending], Mean Corpuscular Volume [Pending], Mean Corpuscular Hemoglobin [Pending], Mean Corpuscular Hemoglobin Concent [Pending], Red Cell Distribution Width [Pending], Platelet Count [Pending], Mean Platelet Volume [ Pending], Neutrophils (%) (Auto) [Pending], Lymphocytes (%) (Auto) [Pending], Monocytes (%) (Auto) [Pending], Eosinophils (%) (Auto) [Pending], Basophils (%) (Auto) [Pending], Sodium Level [Pending], Potassium Level [Pending], Chloride Level [Pending], Carbon Dioxide Level [Pending], Blood Urea Nitrogen [Pending], Creatinine [Pending], Estimat Glomerular Filtration Rate [Pending], Glucose Level [Pending], Calcium Level [Pending], Total Bilirubin [Pending], Aspartate Amino Transf (AST/SGOT) [Pending], Alanine Aminotransferase (ALT/SGPT) [Pending] , Alkaline Phosphatase [Pending], Total Protein [Pending], Albumin [Pending], Globulin [Pending] Height (Feet): 5 Height (Inches): 3.00 Weight (Pounds): 134 Objective Elderly confused WW NCAT supple CTA RR abd soft NT ND no edema Forest Clark MD Feb 05, 2019 08:23
[2019-02-05 08:28] LABS: BASOPHILS % (AUTO) 0.6 % (0.0-2.0); HEMATOCRIT 33.9 % (37.0-47.0); HEMOGLOBIN 11.4 G/DL (12.0-16.0); LYMPHOCYTES % (AUTO) 25.6 % (20.0-45.0); MEAN CORPUSCULAR VOLUME 98 FL (80-99); MONOCYTES % (AUTO) 6.6 % (1.0-10.0); NEUTROPHILS % (AUTO) 67.2 % (45.0-75.0); PLATELET COUNT 157 K/UL (150-450); RED BLOOD COUNT 3.46 M/UL (4.20-5.40); RED CELL DISTRIBUTION WIDTH 11.6 % (11.6-14.8); WHITE BLOOD COUNT 6.4 K/UL (4.8-10.8)
[2019-02-05 08:44] LABS: ALANINE AMINOTRANSFERASE 102 U/L (12-78); ALBUMIN 2.6 G/DL (3.4-5.0); ALBUMIN/GLOBULIN RATIO 0.8 (1.0-2.7); ALKALINE PHOSPHATASE 110 U/L (46-116); ANION GAP 9 mmol/L (5-15); ASPARTATE AMINO TRANSFERASE 67 U/L (15-37); BILIRUBIN,TOTAL 0.3 MG/DL (0.2-1.0); BLOOD UREA NITROGEN 9 mg/dL (7-18); CALCIUM 8.2 MG/DL (8.5-10.1); CARBON DIOXIDE 27 MMOL/L (21-32); CHLORIDE 111 MMOL/L (98-107); CREATININE 0.7 MG/DL (0.55-1.30); POTASSIUM 3.2 MMOL/L (3.5-5.1); SODIUM 147 MMOL/L (136-145)
[2019-02-05] MEDS ORDERED: Citalopram Hydrobromide 10mg Tab ORAL SCH (09:00)
[2019-02-05] MEDS ORDERED: Solu-MEDROL 40mg Inj IVP SCH ×2 (09:00)
[2019-02-05] MEDS: Docusate 100mg cap ORAL SCH ×2 (09:00→17:29)
[2019-02-05] MEDS ORDERED: Wixela 250/50 Inhaler - 60 dose INH SCH (09:00)
[2019-02-05 12:00] VITALS: BP 127/68
--- NOTE | 2019-02-05 12:00 | NUR ---
NURSE NOTES: The patient is stable without acute distress or shortness of breath. Will continue plan of care.
--- NOTE | 2019-02-05 12:16 | Cardiology Report ---
APPROVED REPORT EKG Measurement Heart [id number] [id number] Normal sinus rhythm Nonspecific T wave abnormality Abnormal ECG
--- NOTE | 2019-02-05 13:36 | NUR ---
CASE MANAGEMENT:REVIEW 02/05/19 SI: ASPIRATION PNEUMONITIS 97.9 82 16 124/74 99% ON RA H/H-11.4/33.9 NA+147 AST/ALT+67/102 IS: IV SOLUMEDROL QD IV ROCEPHIN Q24 SEROQUEL PO QD CELEXA PO QD ADVAIR INH BID SYNTHROID PO QAM DUONEB HHN Q6HRS RTC :MED/SURG STATUS DCP: FROM HOME PLAN: TRYING TO GET IN TOUCH WITH CONSERVATOR TO DISCUSS SNF PLACEMENT
[2019-02-05] MEDS ORDERED: CEFTRIAXON1 GM/50 ML IVPB (14:41)
[2019-02-05] MEDS ORDERED: DOCUSATE SODIU100 MG ORAL (14:43)
[2019-02-05] MEDS ORDERED: CITALOPRAM HBR20 M1 ORAL (14:43)
[2019-02-05] MEDS ORDERED: LEVOTHYROXINE75 MCG ORAL (14:44)
[2019-02-05] MEDS ORDERED: DUONEB 0.5-3(2.53 ML HHN (14:44)
[2019-02-05] MEDS ORDERED: PANTOPRAZOLE SO40 MG ORAL (14:46)
[2019-02-05] MEDS ORDERED: SOLU-MEDROL500 MG IVP (14:46)
[2019-02-05] MEDS ORDERED: POLYETHYLENE GL17 GM ORAL (14:47)
[2019-02-05] MEDS ORDERED: QUETIAPINE FUMA50 MG ORAL ×4 (14:48→14:50)
[2019-02-05] MEDS ORDERED: ADVAIR 250-501 EACH INH (14:51)
--- NOTE | 2019-02-05 15:00 | NUR ---
NURSE NOTES: Clarification made with regarding discharge [facility] to [facility] with continuation of IV antibiotics for next 9 days. Discharge medication clarified to Dr. Cameron. Notified Dr. Cameron regarding abnormal labs and diarrhea, but okay to be discharged back to [facility] per Dr. Cameron. Informed discharge order to the patient and Quin, the conservator, and the conservator verbalized understanding. IV is not removed per Dr. Cameron's order for continuation of antibiotics therapy. Discharge summary and instruction explained to the patient and Kandy who is a receiving nurse @ [facility] and verbalized understanding. The patient was unable to sign the discharge packet due to physical limitation. Informed course of hospitalization and plan of care to Kandy, who is a receiving nurse, at [facility] and the patient will go to [address]. The patient belongings checked but unable to sign. Wound care completed per order. Will continue plan of care until the transporter comes.
--- NOTE | 2019-02-05 15:36 | NUR ---
*-* DISCHARGE SUMMARY *-* PATIENT HAS BEEN REFERRED TO: [facility] P; [phone] F: [phone]
[2019-02-05 16:00] VITALS: BP 101/68
--- NOTE | 2019-02-05 19:20 | NUR ---
HAND-OFF: Report given to SEVEN Luevano. The patient is resting on the bed without acute distress or shortness of breath. The patient's bed in the lowest position, call light in reach, and fall and aspiration precaution reinforced. IV site intact and patent. Wound care completed per order. The patient is prepared to be transferred to [facility] at room 101B. Awaiting for transporter to arrive. Endorsed plan of care.
--- NOTE | 2019-02-05 19:44 | NUR ---
NURSE NOTES: Patient discharged by ambulance as ordered. Patient is awake, no shortness of breath noted.
--- NOTE | 2019-02-06 23:56 | Discharge Summary ---
Discharge Summary Discharge Summary _ Date of Admission: February 01, 2019. Date of Discharge: February 05, 2019. Discharge Diagnoses: 1. Aspiration pneumonitis, likely chemical versus bacterial. 2. Transient elevation of liver function tests and amylase post admission, suggestive of passed common bile duct stone. 3. Advanced dementia with behavioral changes including agitation and paranoia, well controlled on low dose of antipsychotic therapy and antidepressant. 4. History of major depressive disorder. 5. Chronic obstructive lung disease with bronchospasm. 6. Prior history of diabetes, not currently requiring medication treatment. 7. Hypothyroidism. 8. Hyperlipidemia. 9. History of peripheral edema. 10. Degenerative joint disease. 11. History of atrial fibrillation. 12. Recurrent dysphagia with episodic postprandial coughing resulting in use of a pureed diet and nectar thickened liquid. 13. History of right hip and gluteal cellulitis with deep necrosis, status post debridement healed. 14. Status post left intertrochanteric hip fracture status post hemiarthroplasty. 15. History of prior right arm fracture. 16. Status post cataract surgery. 17. Gait disorder with immobility and limited transfer ability. 18. Episodic urinary tract infections. Medications: 1. Ceftriaxone 1 gm IV daily x 6 days. 2. Advair Diskus 250/50 1 puff twice daily. 3. Celexa 20 mg daily. 4. DuoNeb U.D. every six hours by nebulizer. 5. Docusate 100 mg twice daily. 6. MiraLAX 1 scoop daily. 7. Multivitamin daily. 9. Seroquel 12.5 mg every morning and q. noon, 25 mg nightly. 10. Synthroid 75 mcg daily. 11. Pantoprazole 40 mg daily. 12. Vitamin D 2000 units daily. 13. Cranberry extract 500 mg daily. 14. Refresh Tears 1 drop OU 4 times daily as needed irritation. Allergies: NKDA. History of Present Illness: Ms. Velázquez is an 83-year-old woman who was admitted after a history of vomiting with subsequent congestion, intermittent fever, transient episode of hypotension, lethargy, and cough with wheezing noted in the emergency department. Also noted on admission the patient had a fever, elevated lactate, and persistent wheezing despite bronchodilator treatment. Details of the history and physical examination are per the dictation of February 01, 2019. Hospital Course: On admission, beside the evidence of respiratory decompensation, with possible sepsis, Ms. Velázquez was also noted to have evidence of volume depletion, persistent dysphasia, and multiple skin lesions. Initial treatment included bronchodilator therapy as well as Zosyn and metronidazole antibiotic coverage. Patient's chest x-ray was not markedly abnormal, and there was not a significant leukocytosis on admission. However because of the patient's significant congestion as well as the elevated lactate, the patient was treated with continuing antibiotics for possible infectious component. She was also treated with intravenous Solu-Medrol 60 mg a day tapering downward both for her bronchospasm and for a chemical component of her pneumonitis. Over the course of several days respiratory congestion diminished, and the patient became more alert and responsive. Speech therapy evaluation provided the recommendation that the patient have a more liquefied pure to improve intake. With one-to-one feedings, Ms. Velázquez resumed good oral intake. Wound evaluation noted bilateral erythema of the heels, as well as a large area of erosion over the rectal cleft and buttock areas with surrounding erythema. Patient seen by Dr. Mims and wound treatment was initiated. When the patient's clinical status stabilized without significant leukocytosis, the antibiotics spectrum was decreased with substitution of ceftriaxone. Patient's condition was discussed several times during the admission with Quin Lea, her resident care spec through her conservator's office. It was confirmed that the patient was to be DNR/DNI, but to continue usual treatments. As her condition stabilized, it was felt that Ms. Velázquez would benefit from transfer to a detention facility for completion of her antibiotic regimen as well as wound treatment, prior to returning to her [facility]. Ms. Lea concurred. The patient was transferred to [facility]. She will be followed there. Jamin Cameron MD Feb 06, 2019 23:56
== END 2019-02-05 17:35 | DRG 178 ==
LOC: EMR 13:20 → 2E 13:35 → EDBEDREQ 14:35 → 4E 02-04 20:32
DX: J69.0 Pneumonitis due to inhalation of food and vomit (principal); J44.1 Chronic obstructive pulmonary disease with (acute) exacerbation; F03.91 Unspecified dementia, unspecified severity, with behavioral disturbance; E03.9 Hypothyroidism, unspecified; R79.89 Other specified abnormal findings of blood chemistry; F32.9 Major depressive disorder, single episode, unspecified; J44.9 Chronic obstructive pulmonary disease, unspecified; R13.10 Dysphagia, unspecified; M19.90 Unspecified osteoarthritis, unspecified site; I48.91 Unspecified atrial fibrillation; R74.8 Abnormal levels of other serum enzymes; L89.159 Pressure ulcer of sacral region, unspecified stage; L89.329 Pressure ulcer of left buttock, unspecified stage; R26.9 Unspecified abnormalities of gait and mobility
CPT/HCPCS: 36415; 71045; 76700; 80053; 81003; 82150; 83605; 83690; 83880; 84439; 84443; 84484; 85025; 86710; 87040; 87081; 93005; 94640; 94664; 96361; 96365; 96368; 99285; J7030; J7620